=== PATIENT | female | born 1935 | race Caucasian/White ===

== ENCOUNTER 2020-04-03 09:50 | Observation (INO) ==
--- NOTE | 2020-04-03 10:38 | History & Physical Bridge Note ---
Date of Service April 03, 2020 History & Physical Bridge Note I have examined the patient, reviewed the History & Physical and in the interval since the performance of the History & Physical I have noted the following changes of clinical significance: no changes noted
--- NOTE | 2020-04-03 10:38 | Pre Anesthesia Assessment ---
Date of Service April 03, 2020 Pre Sedation Assessment Cardiovascular + bradycardic Respiratory normal respiratory effort, lungs clear to auscultation Pre-Sedation Airway Assessment Smoking Status: Former smoker Hx Sleep Apnea: No Short, Thick Neck: No Thyromental Distance: > or= 3.5 Finger Breadths Oral Cavity: + WNL Mallampati Class: II ASA: ASA2 NPO Status Date of Last Intake of Fluids: 04/03/20 Time of Last Intake of Fluids: 08:00 Date of Last Intake of Solid Food: 04/02/20 Time of Last Intake of Solid Foods: 17:00 Procedure Planning Contraindications for Sedation: none Current Medications Reviewed: Yes Notes The planned sedation has been discussed with the patient. Informed Consent was obtained. I have identified the patient, determined the appropriateness of sedation and have assessed the patient immediately prior to the procedure. All medicine(s) and interventions are by my order.
[2020-04-03] MEDS ORDERED: BUPIVACAINE 0.25% 30 ML VIAL ONE ×2 (10:43→11:05)
[2020-04-03] MEDS ORDERED: fentaNYL citrate 100 MCG/2 ML VIAL ONE ×2 (10:43→12:01)
[2020-04-03] MEDS ORDERED: MIDAZOLAM HCL 5 MG/ML 1 ML VIAL ONE (10:43)
[2020-04-03] MEDS ORDERED: CEFAZOLIN 250 MG/ML 1 GM VIAL ONE (10:43)
[2020-04-03] MEDS ORDERED: BACITRACIN INJ 50,000 UNIT VIAL ONE (10:43)
[2020-04-03] MEDS ORDERED: LIDOCAINE HCL 1% 20 ML VIAL ONE (10:43)
[2020-04-03] MEDS ORDERED: DiphenhydrAMINE HCL 50 MG/ML VIAL ONE (11:15)
[2020-04-03] MEDS ORDERED: methylPREDNISolone 125 MG/2 ML VIAL ONE (11:15)
[2020-04-03] MEDS ORDERED: HydrALAZINE HCL 20 MG/ML VIAL ONE (12:27)
[2020-04-03] MEDS ORDERED: MIDAZOLAM HCL 1 MG/ML 2ML VIAL ONE (12:30)
--- NOTE | 2020-04-03 12:52 | Post Anesthesia Assessment ---
Date of Service April 03, 2020 Post Sedation Assessment Vital Signs Temp Pulse Resp BP Pulse Ox 04/03/20 10:20 36.7 C 53 L 18 175/65 H 99 Recovery Score Activity: Moves 4 extremities Respiration: Deep Breath/Cough Circulation: +/-20% PreAnes Value Consciousness: Fully Awake Oxygen Saturation: > 92% On Room Air Discharge Sedation Level of Care: Fast Track Phase II Post Sedation Plan On clinical assessment, the patient appears to have tolerated the sedation without complications. Patient is recovering as anticipated. Patient will continue to be monitored by nursing and may be discharged when sedation discharge criteria are met per below protocol. Upon Completions of procedure up to 15 minutes continue every 5 minute vital signs and the P.A.R. score; then discharge to a Phase I or Fast Track to Phase II per the following guidelines: * Discharge Patient to appropriate Phase II area if PAR is 8 or greater or return to pre- procedure baseline. The post - procedure orders will be as directed. * If PAR score is less than 8 or not return to pre-procedure baseline then patient will follow Phase I monitoring till PAR is reached for Phase II. The Phase I may be done in procedure room or may call to secure a Phase I area. * If naloxone or flumazenil are used for reversal, hold in Phase I for continued monitoring from when last reversal dose was given for a minimum of 60 minutes or longer pending the nurse and/or physician discretion of patient condition before discharge to Phase II. Please call the Sedation Physician to re-evaluate and complete post-note for discharge to Phase II area. Do NOT discharge from procedure sedation or Phase 1 until post- sedation evaluation note is complete by procedure /sedation MD Sedation Discharge Instructions to be given to the patient at discharge to home.
[2020-04-03] MEDS ORDERED: OXYCODONE/ACETAMINOPHEN 5mg/325mg TAB PO PRN (12:53)
--- NOTE | 2020-04-03 12:53 | Operative Report ---
Post Operative Report Pre & Post Diagnosis tbs Operation Date: 04/03/20 11:00 <No data on this case meets the specified criteria> I identified the patient and participated in the time-out.: Yes Procedure Operation Date: 04/03/20 11:00 Actual Procedures p Pacer with A/V Leads (Dual) - Tracy Salcedo DO s Bundle of his Recording - Tracy Salcedo DO Surgeon Tracy Salcedo DO Set Up Mechanic none Estimated Blood Loss 25 Findings Consistent with Post-Op Diagnosis Specimens none Description of Procedure see official report I attest to the content of the Intraoperative Record and any orders documented therein. Any exceptions are noted below.
[2020-04-03] MEDS ORDERED: LORazepam 0.5 MG TAB PO PRN (12:56)
[2020-04-03] MEDS ORDERED: NURSING DECISION MEDICATION ONE (14:00)
[2020-04-03] MEDS: ACETAMINOPHEN 325 MG TAB PO PRN (16:28)
[2020-04-03] MEDS: METOPROLOL SUCC 25MG EXT REL TAB PO SCH (16:29)
--- NOTE | 2020-04-03 18:21 | XRay Report ---
XR chest 2V PA/lateral CLINICAL HISTORY: post ppm with lead over left bundle COMPARISON STUDY: 10/30/2019 FINDINGS: Cardiac pacemaker placement. Leads in good position. No evidence for pneumothorax. Mild chronic interstitial change throughout both hemithoraces. IMPRESSION: Cardiac pacer placed with leads in good position. Lungs are clear with no evidence for p neumothorax. ACT 112: Negative or not required by law. The above report was generated using voice recognition software. It may contain grammatical, syntax or spelling errors. Electronically signed by: Mayank Lopez M.D. 04/03/2020 6:20 PM
--- NOTE | 2020-04-03 19:24 | Electrocardiogram Report ---
Test Reason : Blood Pressure : / mmHG Vent. Rate : 060 BPM Atrial Rate : 060 BPM P-R Int : 212 ms QRS Dur : 080 ms QT Int : 440 ms P-R-T Axes : -28 -21 -05 degrees QTc Int : 440 ms Atrial-paced rhythm with prolonged AV conduction Nonspecific ST abnormality Abnormal ECG When compared with ECG of 01-NOV-2019 06:55, Electronic atrial pacemaker has replaced Sinus rhythm QT has shortened Confirmed by Adi Horn ([id number]) on 04/03/2020 7:23:59 PM Referred By: Tracy Salcedo Confirmed By:Jose L Horn
[2020-04-03] MEDS: SOTALOL HCL 80 MG TAB PO SCH (20:39)
[2020-04-04] MEDS: LEVOTHYROXINE SODIUM 50 MCG TABLET PO SCH (05:00)
[2020-04-04] MEDS ORDERED: SOTALOL HCL 80 MG TAB PO ONE (08:17)
[2020-04-04] MEDS: SOTALOL HCL 80 MG TAB PO SCH ×2 (08:30→20:51)
--- NOTE | 2020-04-04 08:34 | Cardiology Progress Note ---
Date of Service April 04, 2020 Assessment & Plan (1) A-fib: (2) Tachy-gaviota syndrome: Subjective Pt went into AF last night around 7pm; she is slightly symptomatic with palpitations and fatigue. She is POD 1 from a ppm Review of Systems Review of Systems: All systems reviewed & are unremarkable except as noted in HPI & below Physical Exam Physical Exam: aaox3, NAD NC/AT, EOMI Supple No JVD irreguar irregular and tachycardic S1/S2, No murmur CTA b/l no w/r/r soft nt/nd no LE edema b/l skin intact no focal deficits left pectoral incision intact, no hematoma mild ecchymosis Results & Data Vital Signs (Past 12 Hours) Vital Signs Temp Pulse Resp BP Pulse Ox 04/04/20 08:09 36.4 C L 128 H 19 149/82 H 96 04/04/20 03:46 36.3 C L 107 H 18 131/78 98 04/03/20 23:11 36.4 C L 60 19 136/74 96 Diagnostic Findings CXR: NO PTX, leads in position ECG: SR Pacemaker Interrogation: Currently in AF with RVR Lead testing stable from implant I tried to burst pace her out of the AF from the RA but this was not successfully Medications Administered Current Inpatient Medications Acetaminophen (Tylenol) 650 mg PO Q4H PRN PRN Reason: Pain Stop: 05/03/20 12:52 Last Admin: 04/03/20 16:28 Dose: 650 mg Documented by: Aspirin (Ecotrin Ectab) 81 mg PO DAILY@0800 [facility] Stop: 05/04/20 07:59 Cyanocobalamin (Vitamin B-12) 100 mcg PO DAILY@0800 [facility] Stop: 05/04/20 07:59 Folic Acid (Folvite) 1 mg PO DAILY@0800 [facility] Stop: 05/04/20 07:59 Furosemide (Lasix) 20 mg PO QAM@0800 [facility] Stop: 05/04/20 07:59 Hydralazine HCl (Apresoline) 25 mg PO TID@0800,1200,2000 [facility] Stop: 05/03/20 13:59 Last Admin: 04/03/20 21:09 Dose: 25 mg Documented by: Levothyroxine Sodium (Synthroid) 50 mcg PO QAM@0400 [facility] Stop: 05/04/20 03:59 Last Admin: 04/04/20 05:00 Dose: 50 mcg Documented by: Lorazepam (Ativan) 0.5 mg PO HS PRN PRN Reason: Sleep Stop: 05/03/20 12:55 Losartan Potassium (Cozaar) 100 mg PO DAILY@0800 [facility] Stop: 05/04/20 07:59 Magnesium Oxide (Mag-Ox) 400 mg PO QAM@0800 [facility] Stop: 05/04/20 07:59 Metoprolol Succinate (Toprol Xl) 25 mg PO QAM@0800 [facility] Stop: 05/03/20 13:59 Last Admin: 04/03/20 16:29 Dose: 25 mg Documented by: Oxycodone/Acetaminophen (Percocet 5mg/325mg) 1 - 2 tab PO Q6H PRN PRN Reason: Moderate-Severe Pain Stop: 04/17/20 12:52 Last Admin: 04/03/20 20:38 Dose: 2 tab Documented by: Pantoprazole Sodium (Protonix) 40 mg PO QAM@0800 [facility] Stop: 05/04/20 07:59 Potassium Chloride (Klor-Con M20) 20 meq PO QDL@1200 [facility] Stop: 05/04/20 11:59 Sotalol HCl (Betapace) 40 mg PO BID@0800,2000 [facility] Stop: 05/03/20 19:59 Last Admin: 04/04/20 08:30 Dose: Not Given Documented by: Vitamin D (Vitamin D3) 2,000 units PO DAILY@0800 [facility] Stop: 05/04/20 07:59 (1) A-fib Atrial fibrillation type: unspecified Qualified Code(s): I48.91 - Unspecified atrial fibrillation
[2020-04-04] MEDS: PANTOprazole 40 MG TAB PO SCH (08:45)
[2020-04-04] MEDS: LOSARTAN POTASSIUM 50 MG TAB PO SCH (08:45)
[2020-04-04] MEDS: CHOLECALCIFEROL 1,000 UNITS 25 MCG TAB PO SCH (08:45)
[2020-04-04] MEDS: FOLIC ACID 1 MG TAB PO SCH (08:45)
[2020-04-04] MEDS: FUROSEMIDE 20 MG TAB PO SCH (08:45)
[2020-04-04] MEDS: CYANOCOBALAMIN (VITAMIN B-12) 100 MCG TABLET PO SCH (08:45)
[2020-04-04] MEDS: MAGNESIUM OXIDE 400 MG TAB PO SCH (08:46)
[2020-04-04] MEDS: ASPIRIN 81 MG ECTAB PO SCH (08:46)
[2020-04-04] MEDS: METOPROLOL SUCC 25MG EXT REL TAB PO SCH (08:46)
[2020-04-04] MEDS: POTASSIUM CHLORIDE 20 MEQ TABCR PO SCH (12:13)
[2020-04-04] MEDS: ACETAMINOPHEN 325 MG TAB PO PRN (19:11)
[2020-04-05] MEDS: LEVOTHYROXINE SODIUM 50 MCG TABLET PO SCH (05:50)
--- NOTE | 2020-04-05 07:06 | Anesthesiology Consultation ---
Date of Service April 05, 2020 Assessment & Plan (1) Encounter for pre-operative examination: Chart Review Chart Review: Acceptable Risk for Surgery Consults Requested none ASA ASA3 Proposed Anesthesia Anesthesia Type: MAC Risk / Benefits Reviewed With: PT / POA / Parent / Guardian, Accepts Plan and Informed Consent Obtained History Surgery Operation Date: 04/03/20 11:00 Proposed Procedures p Dual Chamber Pacemaker Insertion w/Possible Left Bundle Branch - Tracy Salcedo DO Operation Date: 04/05/20 07:30 Proposed Procedures p Cardioversion Lighter w/Anesthesia - Geovani Carpenter MD Height/Weight Height: 5 ft 4 in Weight: 95.6 kg Allergies Allergy/AdvReac Type Severity Reaction Status Date / Time wheat Allergy Intermediate CELIAC Verified 10/30/19 11:43 DISEASE Fnrxlgx-Tcu-Fsm Reductase AdvReac Intermediate MUSCLE AND Verified 10/30/19 11:4 3 Inhibitor BACK ACHES diltiazem [From Cardizem] AdvReac Unknown Verified 10/30/19 11:44 epinephrine AdvReac Unknown "WEIRD Verified 10/30/19 11:43 FEELING" lidocaine AdvReac Unknown "FEELS Verified 10/30/19 11:43 WEIRD" Medications Home Medications Medication Instructions Recorded Confirmed Last Taken esomeprazole magnesium [Nexium] 20 mg PO QAM 01/18/19 04/03/20 10/30/19 hydralazine 25 mg PO TID 01/18/19 04/03/20 10/30/19 levothyroxine [Synthroid] 50 mcg PO QAM 01/18/19 04/03/20 10/30/19 lorazepam 0.5 mg PO HS PRN 01/18/19 04/03/20 10/29/19 0.25mg magnesium oxide 400 mg PO QAM 01/18/19 04/03/20 10/30/19 potassium chloride 20 meq PO QDL 01/18/19 04/03/20 10/29/19 aspirin 81 mg PO DAILY 10/30/19 04/03/20 Unknown cholecalciferol (vitamin D3) 2,000 unit PO DAILY 10/30/19 04/03/20 Unknown cyanocobalamin (vitamin B-12) 100 mcg PO DAILY 10/30/19 04/03/20 Unknown folic acid 1 mg PO DAILY 10/30/19 04/03/20 Unknown furosemide [Lasix] 20 mg PO QAM 10/30/19 04/03/20 10/30/19 losartan 100 mg PO DAILY 10/30/19 04/03/20 Unknown sotalol 40 mg PO BID 11/13/19 04/03/20 Unknown Active Medications Generic Name Dose Route Start Last Admin Trade Name Freq PRN Reason Stop Dose Admin Acetaminophen 650 mg 04/03/20 12:53 04/04/20 19:11 Tylenol PO 05/03/20 12:52 650 mg Q4H PRN Administration Pain Aspirin 81 mg 04/04/20 08:00 04/04/20 08:46 Ecotrin Ectab PO 05/04/20 07:59 81 mg DAILY@0800 [facility] Administration Cyanocobalamin 100 mcg 04/04/20 08:00 04/04/20 08:45 Vitamin B-12 PO 05/04/20 07:59 100 mcg DAILY@0800 [facility] Administration Folic Acid 1 mg 04/04/20 08:00 04/04/20 08:45 Folvite PO 05/04/20 07:59 1 mg DAILY@0800 [facility] Administration Furosemide 20 mg 04/04/20 08:00 04/04/20 08:45 Lasix PO 05/04/20 07:59 20 mg QAM@0800 [facility] Administration Hydralazine HCl 25 mg 04/03/20 14:00 04/04/20 20:51 Apresoline PO 05/03/20 13:59 25 mg TID@0800,1200,2000 [facility] Administration Levothyroxine Sodium 50 mcg 04/04/20 04:00 04/05/20 05:50 Synthroid PO 05/04/20 03:59 50 mcg QAM@0400 [facility] Administration Lorazepam 0.5 mg 04/03/20 12:56 04/05/20 00:32 Ativan PO 05/03/20 12:55 0.5 mg HS PRN Administration Sleep Losartan Potassium 100 mg 04/04/20 08:00 04/04/20 08:45 Cozaar PO 05/04/20 07:59 100 mg DAILY@0800 [facility] Administration Magnesium Oxide 400 mg 04/04/20 08:00 04/04/20 08:46 Mag-Ox PO 05/04/20 07:59 400 mg QAM@0800 [facility] Administration Metoprolol Succinate 25 mg 04/03/20 14:00 04/04/20 08:46 Toprol Xl PO 05/03/20 13:59 25 mg QAM@0800 [facility] Administration Oxycodone/Acetaminophen 1 - 2 tab 04/03/20 12:53 04/03/20 20:38 Percocet 5mg/325mg PO 04/17/20 12:52 2 tab Q6H PRN Administration Moderate-Severe Pain Pantoprazole Sodium 40 mg 04/04/20 08:00 04/04/20 08:45 Protonix PO 05/04/20 07:59 40 mg QAM@0800 [facility] Administration Potassium Chloride 20 meq 04/04/20 12:00 04/04/20 12:13 Klor-Con M20 PO 05/04/20 11:59 20 meq QDL@1200 [facility] Administration Sotalol HCl 40 mg 04/03/20 20:00 04/04/20 20:51 Betapace PO 05/03/20 19:59 40 mg BID@0800,2000 [facility] Administration Vitamin D 2,000 units 04/04/20 08:00 04/04/20 08:45 Vitamin D3 PO 05/04/20 07:59 2,000 units DAILY@0800 [facility] Administration NPO Date Last Intake of Fluids: 04/03/20 Time Last Intake of Fluids: 08:00 Date Last Intake of Solids: 04/02/20 Time Last Intake of Solids: 17:00 Past Medical History Medical History Anxiety (Acute) Atrial fibrillation Celiac disease Chronic back pain SPINAL STENOSIS Congestive heart failure HX 1 1/2 YR AGO GERD (gastroesophageal reflux disease) (Acute) Hiatal hernia History of cardioversion X 4-5 Hyperlipidemia Hypertension (Acute) Hypothyroidism Iron deficiency anemia Migraine HX Nausea and vomiting after administration of anesthetic agent Osteoarthritis 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 Sleep apnea BORDERLINE-DOES NOT USE MACHINE Urinary bladder incontinence Exercise / Class Metabolic Activity III < 4 Walking/Shop/Light housework Past Family History Family History Mother Family history of diabetes mellitus Hypertension Macular degeneration Father Heart disease Past Surgical History Surgical History History of adenoidectomy History of appendectomy History of bilateral tubal ligation History of cardiac cath 3 YRS AGO NO STENTS-"CLEAN VESSELS" History of cataract extraction History of tonsillectomy Surgery, elective COCCYXGECTOMY Past Anesthesia History No Hx of Anesthesia Complications and No Family Hx of Anesthesia Complications History of PONV No Hx of PONV and No Hx of Motion Sickness Social History Smoking Status: Former smoker Hx Alcohol Use: No Alcohol type: wine alcohol intake frequency: holidays/special occasions only Hx Substance Use: No substance use type: does not use Physical Exam Vital Signs Last Vital Signs Temp 97.9 F 04/05/20 04:00 Pulse 111 H 04/05/20 04:00 Resp 18 04/05/20 04:00 BP 113/76 04/05/20 04:00 Pulse Ox 96 04/05/20 04:00 ENMT Mouth: no dentition abnormality Thyromental Distance: > or= 3.5 Finger Breadths Mallampati Class: II Neck normal visual inspection Respiratory normal respiratory effort Auscultation: lungs clear to auscultation bilaterally Cardiovascular Rate/Rhythm: + abnormal rate and + abnormal rhythm Testing Electrocardiogram Date: 04/03/20 Atrial-paced rhythm with prolonged AV conduction, rate [address] abnormality Abnormal ECG When compared with ECG of 01-NOV-2019 06:55, Electronic atrial pacemaker has replaced Sinus rhythm QT has shortened Confirmed by Adi Horn ([id number]) on 04/03/2020 7:23:59 PM Chest X-Ray Date: 04/03/20 IMPRESSION: Cardiac pacer placed with leads in good position. Lungs are clear with no evidence for pneumothorax. Echocardiogram Date: 11/09/19 Afib with mildly elevated ventricular rate EF 55-60% LA is mildly dilated Mild MR
[2020-04-05] MEDS ORDERED: PROPOFOL IV EMULSION 10 MG/ML 20 ML VIAL IV ONE (08:01)
[2020-04-05] MEDS: FUROSEMIDE 20 MG TAB PO SCH (08:02)
[2020-04-05] MEDS: SOTALOL HCL 80 MG TAB PO SCH (08:02)
[2020-04-05] MEDS: LOSARTAN POTASSIUM 50 MG TAB PO SCH (08:03)
[2020-04-05] MEDS: CYANOCOBALAMIN (VITAMIN B-12) 100 MCG TABLET PO SCH (08:03)
[2020-04-05] MEDS: MAGNESIUM OXIDE 400 MG TAB PO SCH (08:03)
[2020-04-05] MEDS: PANTOprazole 40 MG TAB PO SCH (08:03)
[2020-04-05] MEDS: ASPIRIN 81 MG ECTAB PO SCH (08:03)
[2020-04-05] MEDS: FOLIC ACID 1 MG TAB PO SCH (08:03)
[2020-04-05] MEDS: METOPROLOL SUCC 25MG EXT REL TAB PO SCH (08:04)
[2020-04-05] MEDS: CHOLECALCIFEROL 1,000 UNITS 25 MCG TAB PO SCH (08:04)
--- NOTE | 2020-04-05 08:06 | Cardioversion ---
Date of Service April 05, 2020 Electrical Cardioversion Rpt Electrical Cardioversion Report Patient was seen and examined chart medications and telemetry reviewed. No issues overnight Procedure synchronized electrical cardioversion discussed in detail and informed consent obtained. Risk discussed in detail including risk of thromboembolic disease with patient with watchman device in lieu of anticoagulation. Anesthesia consultation was placed and patient sedated with continuous heart rate oxygen saturation and end-tidal CO2 monitoring Synchronized electrical cardioversion was performed with single 150 J biphasic shock with successful conversion to sinus rhythm Patient aroused having tolerated well post procedure Pacemaker re-interrogated post procedure with normal function noted Plan continue medical therapies, discharge after post procedure observation
--- NOTE | 2020-04-05 08:08 | Cardiology Progress Note ---
Date of Service April 05, 2020 Assessment & Plan (1) A-fib: (2) Tachy-gaviota syndrome: Patient status post pacemaker insertion with transient lapse and atrial fibrillation. Underwent successful synchronized electrical cardioversion this morning without incident. Plan continue current medical therapies with discharge later today Subjective Patient seen and examined, chart, medications, telemetry reviewed. Examined pre-and post synchronized electrical cardioversion overall feeling well. Physical Exam Constitutional: WD/WN, vitals as above Eyes: PERRL, conjunctivae normal, anicteric sclerae ENMT: external ear and nose normal, oropharynx normal Neck: trachea midline, no thyromegaly Respiratory: normal respiratory effort, lungs clear to auscultation Cardiovascular: Rate/Rhythm: regular rate and regular rhythm Heart Sounds: normal S1 and normal S2; no gallop and no murmur Palpation: normal PMI Vessels: normal carotid upstroke and radial pulses present; no JVD and no carotid bruit Extremities: no edema Chest (Breasts): Chest: + pacemaker (Incision healing well without hematoma or tenderness of significant) Gastrointestinal (Abdomen): normal bowel sounds, soft, nontender, no hepatosplenomegaly Musculoskeletal: no cyanosis or clubbing, extremities motor strength 5/5 Skin: no rashes, warm and dry Neurologic: PERRL, EOMI, accommodation nl, no face palsy, no dysarthria Psychiatric: A+Ox3, euthymic affect Results & Data Vital Signs (Past 12 Hours) Vital Signs Temp Pulse Resp BP Pulse Ox 04/05/20 08:00 36.2 C L 97 H 16 127/86 97 04/05/20 07:49 80 16 122/54 L 97 04/05/20 07:41 82 16 117/58 L 97 04/05/20 04:00 36.6 C 111 H 18 113/76 96 04/04/20 23:02 36.4 C L 101 H 18 133/86 96 ECG Additional Comments: EKG post synchronized cardioversion: AV sequential pacing with His bundle lead narrow QRS complex rate 80 bpm (1) A-fib Atrial fibrillation type: unspecified Qualified Code(s): I48.91 - Unspecified atrial fibrillation
--- NOTE | 2020-04-05 08:15 | Anesthesiology Progress Note ---
Date of Service April 05, 2020 Anesthesia Post Procedure Vital Signs Vital Signs: Temp Pulse Resp BP Pulse Ox 04/05/20 08:00 97.2 F L 97 H 16 127/86 97 04/05/20 07:49 80 16 122/54 L 97 04/05/20 07:41 82 16 117/58 L 97 04/05/20 04:00 97.9 F 111 H 18 113/76 96 04/04/20 23:02 97.5 F L 101 H 18 133/86 96 04/04/20 18:54 97.7 F 111 H 18 149/84 H 98 04/04/20 15:34 97.5 F L 114 H 18 124/84 96 04/04/20 11:41 97.9 F 109 H 19 137/88 97 Pain Intensity Left Chest: Pain Intensity: 5 Transfer of Care Handoff Completed per policy Notes Mental Status: alert / awake / arousable and participated in evaluation Patient Amnestic to Procedure: Yes Nausea / Vomiting: adequately controlled Pain: adequately controlled Airway Patency, RR, SpO2: stable & adequate BP & HR: stable & adequate Hydration State: stable & adequate Anesthetic Complications: no major complications apparent and Pt Satisfied with anesthetic care
--- NOTE | 2020-04-05 11:28 | Electrocardiogram Report ---
Test Reason : Blood Pressure : / mmHG Vent. Rate : 080 BPM Atrial Rate : 080 BPM P-R Int : 106 ms QRS Dur : 132 ms QT Int : 460 ms P-R-T Axes : 000 -37 072 degrees QTc Int : 530 ms AV dual-paced rhythm Abnormal ECG When compared with ECG of 03-APR-2020 14:29, Electronic ventricular pacemaker has replaced Electronic atrial pacemaker Confirmed by Adi Horn ([id number]) on 04/05/2020 11:28:22 AM Referred By: Tracy Salcedo Confirmed By:Jose L Horn
[2020-04-05] MEDS: POTASSIUM CHLORIDE 20 MEQ TABCR PO SCH (11:49)
--- NOTE | 2020-04-10 16:01 | Discharge Summary ---
Date of Service April 05, 2020 Admission HPI Per Admitting Provider Pt admitted for elective ppm Admission Exam Per Admitting Provider aaox3, NAD NC/AT, EOMI Supple No JVD Nrl S1/S2, No murmur CTA b/l no w/r/r soft nt/nd no LE edema b/l skin intact no focal deficits Principal Diagnosis TBS s/p ppm Discharge Exam aaox3, NAD NC/AT, EOMI Supple No JVD Nrl S1/S2, No murmur CTA b/l no w/r/r soft nt/nd no LE edema b/l skin intact no focal deficits left pectoral incision intact, no hematoma mild ecchymosis Discharge Data Allergies Allergy/AdvReac Type Severity Reaction Status Date / Time wheat Allergy Intermediate CELIAC Verified 10/30/19 11:43 DISEASE Tllsuvb-Afh-Dzn Reductase AdvReac Intermediate MUSCLE AND Verified 10/30/19 11:43 Inhibitor BACK ACHES diltiazem [From Cardizem] AdvReac Unknown Verified 10/30/19 11:44 epinephrine AdvReac Unknown "WEIRD Verified 10/30/19 11:43 FEELING" lidocaine AdvReac Unknown "FEELS Verified 10/30/19 11:43 WEIRD" Consultations 04/04/20 16:39 Consult Anesthesiology Routine Procedures Performed Operation Date: 04/03/20 11:00 Actual Procedures p Pacer with A/V Leads (Dual) - Tracy Salcedo DO s Bundle of his Recording - Tracy Salcedo DO Operation Date: 04/05/20 07:30 Actual Procedures p Cardioversion - Geovani Carpenter MD Ordered Studies CXR: No PTX leads in position ECG: AP-VS Pacemaker interrogation: Normal function stable lead testing 04/03/20 07:00 EP Lab Images for PACS ONCE Hospital Course (1) A-fib: (2) Tachy-gaviota syndrome: pt admitted for elective ppm due to TBS; underwent procedure without any complications and monitored overnight. She went into AF with RVR so remained in the hospital an extra night to have an elective cardioversion back to SR. Total Time Total Time Spent Total Time Spent (In Minutes): 40 Total Time Includes: Examination of the Patient, Discharge Planning, Medication Reconciliation and Other Discharge Plan Discharge Items Patient Disposition: Home - Self-Care Reason For Visit: Tachybrady Syndrome Discharge Diagnosis: Tachybradycardia syndrome status post pacemaker insertion Successful synchronized cardioversion for recurrent atrial fibrillation Activity: Per Instructions section Non-emergency contact: [place] [facility] Call non-emergency contact if: you have any medication questions, your symptoms worsen and you have a fever Follow-up/Referrals: Arpit London MD [Primary Care Provider] - Diet: Heart Healthy Addtl Attending Provider Instructions: Wear sports shirt or sports bra for 2 weeks Keep surgical wound site clean and dry may shower in 3 days avoiding surgical site Keep appointment for wound check 7-10 days Pending Studies at Discharge: No Stand-Alone Forms: [facility], Smoking Cessation Medications and DC Order Prescriptions: Continued furosemide [Lasix] 20 mg Tablet 20 mg PO QAM RF: 0 losartan 50 mg Tablet 100 mg PO DAILY RF: 0 aspirin 81 mg Tablet,Delayed Release (Dr/Ec) 81 mg PO DAILY RF: 0 cyanocobalamin (vitamin B-12) 100 mcg Tablet 100 mcg PO DAILY RF: 0 folic acid 1 mg Tablet 1 mg PO DAILY RF: 0 cholecalciferol (vitamin D3) 2,000 unit Tablet 2,000 unit PO DAILY RF: 0 hydralazine 25 mg Tablet 25 mg PO TID RF: 0 magnesium oxide 400 mg magnesium Capsule 400 mg PO QAM RF: 0 potassium chloride 20 mEq Tablet Extended Release 20 meq PO QDL RF: 0 lorazepam 0.5 mg Tablet 0.5 mg PO HS PRN (Reason: Sleep) RF: 0 esomeprazole magnesium [Nexium] 20 mg Capsule,Delayed Release(Dr/Ec) 20 mg PO QAM RF: 0 levothyroxine [Synthroid] 50 mcg Tablet 50 mcg PO QAM RF: 0 sotalol 80 mg tablet 40 mg PO BID RF: 0 Discharge Orders: Discharge Order (Routine); Ordered 04/05/20 Ordered By: Geovani Aguilar/Other Patient Handouts: Pacemakers, Living with a Pacemaker, Discharge Instructions for Pacemaker Implantation Admission Data Admit Date/Time: 04/03/20 12:36 Attending Provider: Tracy Salcedo Admit Provider: Tracy Salcedo Primary Care Provider: Arpit London Other Providers: [place] Other Interventions: Discharge Summary Assessment (RN) Last Done: 04/05/20 16:14 DC Date/Time DO NOT enter until pt leaves facility: 04/05/20 17:09
--- NOTE | 2020-04-18 07:17 | Operative Report (OR) ---
DATE OF OPERATION: 04/03/2020 PREOPERATIVE DIAGNOSIS: Tachybrady syndrome. POSTOPERATIVE DIAGNOSIS: Tachybrady syndrome. PROCEDURE: Dual chamber rate responsive permanent pacemaker under fluoroscopic guidance along with intracardiac EGM mapping of the His bundle region. SURGEON: Tracy Salcedo DO. ASSISTANTS: None. ANESTHESIA: Monitored conscious sedation administered under my supervision by Lyla Connors. Start time 11:05, end time 12:52. A total of 6 mg of Versed, 175 mcg of fentanyl. INTRAVENOUS FLUIDS: 50 mL. ANTIBIOTICS: Two grams of Ancef. CONTRAST: 4 mL of Optiview. BLOOD LOSS: 20 mL. URINE OUTPUT: Not applicable. SPECIMENS: None. FINDINGS: See below. DRAINS: None. INDICATIONS: This is an 84-year-old female who has a past medical history for paroxysmal atrial fibrillation, she did not tolerate amiodarone secondary to GI problems, so she is on sotalol. She did not tolerate high doses of sotalol 80 b.i.d. secondary to an acute heart failure exacerbation. She has a history of a Watchman device implant in 06/2019 CHADS2-VASc score is 4, hypertension, hypothyroidism, chronic kidney disease stage III, hyperlipidemia, spinal stenosis with the lumbar spine, iron deficiency anemia, celiac disease, anxiety. She has evidence of tachybrady syndrome, so she was recommended a pacemaker. CONSENT: Consent was obtained prior to the patient going into electrophysiology lab. The patient was informed of risks, benefits and alternative to procedure. Risks include but not limited to sudden cardiac , cardiac arrhythmias, myocardial infarction, injury to the blood vessels, chamber of the heart, lung, bleeding, and infection. The patient understood these risks and agreed with procedure as planned. Informed consent was obtained. DESCRIPTION OF THE PROCEDURE: The patient was brought into electrophysiology lab in a fasting state. She was connected to continuous cardiac monitoring. A timeout was performed to ensure patient identity and procedure correctly. The patient was prepped and draped over the left infraclavicular space in normal surgical standard fashion. Monitored conscious sedation was given throughout the procedure for patient's comfort level. Ava precautions were maintained throughout the procedure. She received prophylactic antibiotics prior to incision. 10 mL of 1% lidocaine, bupivacaine mixture was given in the left deltopectoral groove. Incision was made in left deltopectoral groove. Blunt dissection performed down to identify the cephalic vein. Cephalic vein was identified and isolated using 0 silk ties. The vein was nicked with 11 blade and a guidewire was inserted without any resistance. An 8-Malian sheath was inserted over the retained guidewire without any resistance. Dilator was removed and a second guidewire was inserted through the 8-Malian sheath to allow for retained venous access. Sheath was removed, flushed and dilator reinserted over it and then was reinserted over one of the guidewires. Guidewire and dilator were removed. Then, the preformed His Medtronic catheter was advanced into the right ventricle under fluoroscopic guidance over a Glidewire. The Glidewire and dilator were removed. Then, the lead was advanced through the sheath, and intracardiac mapping of the His bundle was performed, AH was 52 milliseconds, HV was 59 milliseconds. I then moved to BARNES 30 MMR where the His was on x-ray and came about 2 cm down from that in a line that then would extend to the apex of the heart and marked this on fluoroscopy to know that is where I wanted my sheath. I then advanced in position the sheath in the foreshortened area around the second dot 2 cm below the His. Then I went into the MARTI 30 view and tried to counter clock my catheter more to get on the septum. I then looked to monitor the electrograms and watched as they changed V1 as well as monitor stim to peak QRS as I took time to screw the lead fully into the septum. I did have adequate left bundle activation, though I think the lead was little bit on an angle. Then I gave contrast through the sheath to see that the sheath was up against the septum and how much of the lead was in the septum. The sheath was then slit under fluoroscopic guidance. Then I capped the 8-Malian in and I put a second 8-Malian sheath through the retained venous access to position the right atrial lead. The right atrial lead was advanced into right atrium and positioned interatrial appendage under fluoroscopic guidance. There was adequate pacing and sensing thresholds and no diaphragmatic stimulation with high output pacing. The 8-Malian sheath of the right atrial lead was slit and the lead was fixated to pectoralis muscle using 0 silk suture. I then slit the 8-Malian sheath over the left bundle lead. The lead was then fixated to pectoralis muscle using 0 silk suture. Then, a pacemaker pocket was created using blunt dissection over the pectoralis muscle within the pectoral fascia. The pocket was flushed with copious amounts of bacitracin, saline wash and inspected for hemostasis. The leads were then attached to the pulse generator making sure that the pins were in appropriate position, passed set screw and set screws were all tightened. Pulse generator was then placed in the Tyrx pouch followed then by being placed in the pocket, making sure that the leads were lying flat beneath the device. A stay stitch using 0 silk suture was used to secure the rest of pectoralis muscle. The incision was then closed in 3-layer fashion with 2-0 Vicryl interrupted suture followed by 3-0 Vicryl interrupted suture followed by 4-0 Monocryl running stitch. Dermabond was applied followed by a Telfa and micropore dressing. EQUIPMENT: 1. Pulse generator is a [employer] Gillian XTD MRI SureScan [id number], serial number [id number]. 2. Right atrial lead Medtronic 5076-52 cm, serial number [id number]. 3. Right ventricular/left bundle lead is a Medtronic 3830-69 cm, serial number [id number]. INTRAOPERATIVE TESTIN. Right atrial lead: P waves 2.5 millivolts, impedance 557 ohms, threshold 0.9 volts at 0.4 milliseconds. 2. Right ventricular lead: R waves 14.9 millivolts, impedance 654 ohms, threshold 0.3 volts at 0.5 milliseconds. FINAL MEASUREMENTS THROUGH THE DEVICE: 1. Right atrial lead: P waves 4.4 millivolts, impedance 456 ohms, threshold 1 volt at 0.4 milliseconds. 2. Right ventricular lead: R waves 17.3 millivolts, impedance 703 ohms, threshold 0.5 volts at 0.4 milliseconds. FINAL PARAMETERS: MVP 60/120. Right atrial amplitude 3.5 volts, pulse width 0.4 milliseconds, sensitivity 0.3 millivolts. Right ventricular amplitude 3.5 volts, pulse width 0.4 milliseconds, sensitivity 0.9 millivolts. IMPRESSION: Successful dual chamber rate responsive permanent pacemaker implantation along with intracardiac EGM mapping of the His bundle region (the RV lead is within the left bundle of the septum), under fluoroscopic guidance secondary to tachybrady syndrome. PLAN: Monitor patient overnight, 12-lead ECG, chest x-ray. She is not allowed to lift left elbow or left shoulder for 1 month. She cannot lift more than 10 pounds with the left arm for 2 weeks. She is to leave the dressing on and dry until her wound check next week. I attest to the content of the Intraoperative Record and any orders documented therein. Any exceptions are noted below. DANIEL
== END 2020-04-05 17:09 | disposition home or self-care (01) ==
LOC: 2S 09:50 → EP 09:50

== ENCOUNTER 2021-07-10 10:54 | Observation (INO) ==
[2021-07-10] MEDS ORDERED: ONDANSETRON INJ 2 MG/ML 2 ML VIAL IV STA (11:17)
[2021-07-10] MEDS ORDERED: SODIUM CHLORIDE 0.9% 1000ML 500 ML IV ONE (11:32)
[2021-07-10] MEDS ORDERED: GI COCKTAIL ED USE PO ONE (11:32)
--- NOTE | 2021-07-10 11:40 | Emergency Department Note ---
Impression & Plan Nausea, Hernia, hiatal, Chronic hyponatremia ED Provider Note Provider: Rod Nunez MD DATE OF SERVICE: 07/10/2021 CHIEF COMPLAINT: intractable nausea, decreased intake, daughter reports mild confusion HISTORY OF PRESENT ILLNESS: Patient is a 85-year-old female with a past medical history of tachybradycardia syndrome and A. fib status post pacemaker and watchman device, CHF, hypertension, hypothyroidism, hyperlipidemia, and known hiatal hernia presenting with daughter today reporting that the patient's has worsening symptoms of nausea. No vomiting reported. Patient was seen here proximately 6 days ago for similar complaints. Patient evidently has a known hiatal hernia and things were not very severe last year thus she deferred surgical repair last April. Since then has had issues with significant nausea is been losing weight. Has been using some Zofran at home including this morning but this did not help and she is having near constant significant nausea worse with any food intake. Reports a little bit of constipation and has had to use MiraLAX. Reports a little bit of epigastric to right upper quadrant discomfort mild. Reports slight headache. No falls or near syncope reported. Denies significant shortness of breath. Denies any leg swelling. No fevers re ported. They do have referral from PCP for hiatal hernia repair consultation but not for several months. The patient states she does not think she can go on like this. Daughter reports the patient seemed a little bit more foggy or confused at her memory is not been as well the last day or 2 as well. Patient does report some increased urinary frequency today. Denies painful urination. Patient herself denies feeling confused or having abnormal mentation at this time. Patient reportedly had an EGD almost 2 years ago at this point by their report. They report that the Zofran tablets at home again have not been working well and that sometimes a GI cocktail helps a bit. REVIEW OF SYSTEMS: A total of 10 review of systems was obtained and negative except as stated above in the HPI. 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 NECK: Trachea midline. LUNGS: Airway patent. No retractions. Breath sounds clear HEART: Regular rate and rhythm. No chest wall tenderness ABDOMEN: Soft minimal deep tenderness in the epigastrium right upper quadrant but no Pickard sign. No guarding or peritonitis. SKIN: Acyanotic, warm, dry, without rashes EXTREMITIES: Without swelling, tenderness or deformity NEUROLOGICAL: No focal deficits moving all extremities to command. No aphasia. No facial droop or slurred speech. EK bpm atrially paced rhythm with occasional PAC. No acute ST segment elevation noted with a QTC of 424. CONTINUOUS CARDIAC MONITORING: was ordered and showed a heart rate of 60s and 70s bpm in predominantly atrial paced rhythm, occasional PAC Patient's laboratory studies and imaging reviewed. Differential includes gastrointestinal, infection, dehydration, metabolic abnormality, hypo/hyperglycemia, electrolyte disturbance, anemia, hypoxia, cardiac sources, intracerebral event, toxicologic, neurologic, as well as other pathologies. IMPRESSION/MEDICAL DECISION MAKING: Patient presents with report of intractable nausea and ability to tolerate oral intake while taking some Zofran at home. No hiatal hernia. He is very interested in possible hiatal hernia surgery at this time. A little bit of abdominal pain. Slight headache and report of little bit of fogginess of the patient does not seem altered at this time of any significance or having focal deficits. Lower suspicion for stroke. CT the head will complete with CT abdomen pelvis to eval for occult intra-abdominal/intracranial pathology. Not significantly tender and I doubt this represents cholecystitis. Lower suspicion for cardiac or pulmonary etiology but chest x-ray and EKG/troponin were obtained. Urinalysis sent to exclude UTI. Covid testing sent. \\Urinalysis without evidence of infection. CBC does not show remarkable anemia or leukocytosis. Mild hyponatremia 133 similar to previous. No significant renal dysfunction noted. No evidence of hepatitis or pancreatitis. Troponin not elevated. Negative Covid test. CT of the head without acute findings per radiology and I doubt this represents meningitis or CVA. Chest x-ray is clear. CT of the abdomen pelvis shows hernia but no evidence of obstruction or other acute pathology. Again testing here is reassuring and discussed with the patient and daughter at bedside these results. She is had minimal improvement of her nausea symptoms while here. Evidently patient was able to get surgery follow-up on Wednesday in [place] to meet a surgeon to discuss hiatal hernia repair. Discussed with patient and daughter options at this time. After discussion patient and her daughter feel that further care at the hospital given her significant symptoms and nausea is the preferred option. Patient may benefit from GI consult to exclude other esophagitis is or issues causing her symptoms. Will consult the hospitalist for further possible observation. DIAGNOSIS: Nausea, hiatal hernia, chronic hyponatremia DISPOSITION: Hospitalist will evaluate Patient was agreeable with this plan. 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 Sleep apnea BORDERLINE-DOES NOT USE MACHINE Urinary bladder incontinence Surgical History History of adenoidectomy History of appendectomy History of bilateral tubal ligation History of cardiac cath 3 YRS AGO NO STENTS-"CLEAN VESSELS" History of cataract extraction History of tonsillectomy Surgery, elective COCCYXGECTOMY Family History Mother Family history of diabetes mellitus Hypertension Macular degeneration Father Heart disease Social History Smoking Status: Former smoker Tobacco Type: Cigarettes packs per day: 1; Years Smoked: 35; Second Hand Exposure: No; Do You Dip or Chew Tobacco: No; Tobacco Cessation Education Requested by Patient: No Hx Alcohol Use: No Hx Substance Use: No Preferred Language: Hungarian Communication Ability: Effective 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 Beliefs That Will Affect Care: None marital status: / Current Living Situation: Alone Other Information That Helps Us Care for You: No Feels Safe at Home: Yes Safety Concerns: Feels Safe At This Time Assistive Devices: Cane Allergies Allergies Allergy/AdvReac Type Severity Reaction Status Date / Time wheat Allergy Intermediate CELIAC Verified 07/10/21 13:51 DISEASE Iodinated Contrast Media AdvReac Intermediate "Tingly Unverified 07/10/21 13:51 all over" [id number] Reductase AdvReac Intermediate MUSCLE AND Verified 07/10/21 13:51 Inhibitor BACK ACHES [Ewtvlot-Zmm-Xsv Reductase Inhibitor] diltiazem [From Cardizem] AdvReac Unknown Verified 07/10/21 13:51 epinephrine AdvReac Unknown "WEIRD Verified 07/10/21 13:51 FEELING" lidocaine AdvReac Unknown "FEELS Verified 07/10/21 13:51 WEIRD" Home Meds Home Medications Medication Instructions Recorded Confirmed esomeprazole magnesium 20 mg 20 mg PO QAM 01/18/19 07/10/21 capsule,delayed release (Nexium) hydralazine 25 mg tablet 25 mg PO QID 01/18/19 07/10/21 levothyroxine 50 mcg tablet 50 mcg PO QAM 01/18/19 07/10/21 (Synthroid) lorazepam 0.5 mg tablet 0.5 mg PO HS PRN 01/18/19 07/10/21 magnesium oxide 400 mg PO QAM 01/18/19 07/10/21 potassium chloride 20 mEq 20 meq PO QAM 01/18/19 07/10/21 tablet,extended release (K-Tab) aspirin 81 mg tablet,delayed 81 mg PO HS 10/30/19 07/10/21 release (Aspirin Low Dose) cholecalciferol (vitamin D3) 50 2,000 unit PO HS 10/30/19 07/10/21 mcg (2,000 unit) tablet (Vitamin D3) folic acid 1 mg tablet 1 mg PO QAM 10/30/19 07/10/21 furosemide 20 mg tablet (Lasix) 10 mg PO Q2D 10/30/19 07/10/21 losartan 50 mg tablet (Cozaar) 100 mg PO QAM 10/30/19 07/10/21 sotalol 80 mg tablet (Sotalol AF) 40 mg PO BID 11/13/19 07/10/21 melatonin 10 mg tablet 10 mg PO HS PRN 07/04/20 07/10/21 multivitamin 1 tab PO QAM 07/04/20 07/10/21 famotidine 20 mg tablet (Pepcid AC) 20 mg PO HS 07/10/21 07/10/21 ondansetron HCl 4 mg tablet 4 mg PO Q8H PRN 07/10/21 07/10/21 (Zofran) Results & Data (ED) Vital Signs Vital Signs - 24 hr 07/10/21 11:05 07/10/21 12:18 07/10/21 12:49 Temperature 36.6 C Temperature Source Temporal Artery Scan Pulse Rate 77 Pulse Rate [Apical] 62 66 Pulse Rhythm Regular Pulse Strength Normal Respiratory Rate 20 18 18 Respiratory Effort / Characteristics Non-Labored Spontaneous Non-Labored Spontaneous Non-Labored Spontaneous Respiratory Depth Normal Normal Normal Respiratory Pattern Regular Regular Blood Pressure 182/92 H Blood Pressure [Right Arm] 187/89 H 176/80 H Blood Pressure Mean 122 Blood Pressure Mean [Right Arm] 121 112 Blood Pressure Position Sitting Blood Pressure Position [Right Arm] Sitting Pulse Oximetry 97 97 96 Oxygen Delivery Method Room Air Room Air Room Air Sepsis Recent Fever Within 48 Hours No Sepsis New/Unexplained Change in Mental Status No Sepsis Action Taken by Nursing No Action Required 07/10/21 13:40 Temperature Temperature Source Pulse Rate Pulse Rate [Apical] 60 Pulse Rhythm Pulse Strength Respiratory Rate 16 Respiratory Effort / Characteristics Non-Labored Spontaneous Respiratory Depth Normal Respiratory Pattern Regular Blood Pressure Blood Pressure [Right Arm] 175/66 H Blood Pressure Mean Blood Pressure Mean [Right Arm] 102 Blood Pressure Position Blood Pressure Position [Right Arm] Semi-fowlers Pulse Oximetry 97 Oxygen Delivery Method Room Air Sepsis Recent Fever Within 48 Hours Sepsis New/Unexplained Change in Mental Status Sepsis Action Taken by Nursing Laboratory Data Result diagrams: 07/10/21 12:05 07/10/21 12:05 Lab Results 07/10/21 07/10/21 07/10/21 Range/Units 11:21 11:40 11:40 WBC (4.8-10.8) K/uL RBC (4.2-5.4) M/uL Hgb (12.0-16.0) g/dL Hct (37-47) % MCV (80-100) fL MCH (25-34) pg MCHC (32-36) g/dL RDW Std Deviation (36.4-46.3) fL RDW Coeff of Lupis (11.5-14.5) % Plt Count (130-400) K/uL MPV (7.4-10.4) fL Immature Gran % (Auto) % Neut % (Auto) % Lymph % (Auto) % [place] % (Auto) % Eos % (Auto) % Baso % (Auto) % Neut # (Auto) (1.4-6.5) K/uL Lymph # (Auto) (1.2-3.4) K/uL [place] # (Auto) (0.11-0.59) K/uL Eos # (Auto) (0-0.5) K/uL Baso # (Auto) (0-0.2) K/uL Immature Gran # (Auto) (0.00-0.02) K/uL Sodium (136-145) mmol/L Potassium (3.5-5.1) mmol/L Chloride (98-107) mmol/L Carbon Dioxide (21-32) mmol/L Anion Gap (3-11) BUN (7-18) mg/dl Creatinine (0.6-1.2) mg/dl Est Cr Clr Drug Dosing ml/min Est GFR ( Amer) ml/min Est GFR (Non-Af Amer) ml/min BUN/Creatinine Ratio (10-20) Glucose (70-99) mg/dl Calcium (8.5-10.1) mg/dl Total Bilirubin (0.2-1) mg/dl AST (15-37) U/L ALT (12-78) U/L Alkaline Phosphatase (45-117) U/L Troponin I (0-0.045) ng/ml Total Protein (6.4-8.2) gm/dl Albumin (3.4-5.0) gm/dl Globulin (2.5-4.0) gm/dl Albumin/Globulin Ratio (0.9-2) Lipase (73-393) U/L Urine Color Yellow Urine Appearance Clear (Clear) Urine pH 7.0 (4.5-7.5) Ur Specific [place] 1.005 (1.000-1.030) Urine Protein Negative (Negative) Urine Glucose (UA) Negative (Negative) Urine Ketones Negative (Negative) Urine Blood Negative (Negative) Urine Nitrite Negative (Negative) Urine Bilirubin Negative (Negative) Urine Urobilinogen Negative (Negative) Ur Leukocyte Esterase Negative (Negative) COVID-19 Eval Order Covid19 at [facility] SARS-CoV-2 (PCR) NEGATIVE (Negative) 07/10/21 07/10/21 Range/Units 12:05 12:05 WBC 6.93 (4.8-10.8) K/uL RBC 4.31 (4.2-5.4) M/uL Hgb 12.1 (12.0-16.0) g/dL Hct 36.6 L (37-47) % MCV 84.9 (80-100) fL MCH 28.1 (25-34) pg MCHC 33.1 (32-36) g/dL RDW Std Deviation 42.9 (36.4-46.3) fL RDW Coeff of Lupis 13.8 (11.5-14.5) % Plt Count 338 (130-400) K/uL MPV 8.9 (7.4-10.4) fL Immature Gran % (Auto) 0.1 % Neut % (Auto) 70.3 % Lymph % (Auto) 15.4 % [place] % (Auto) 9.7 % Eos % (Auto) 4.2 % Baso % (Auto) 0.3 % Neut # (Auto) 4.87 (1.4-6.5) K/uL Lymph # (Auto) 1.07 L (1.2-3.4) K/uL [place] # (Auto) 0.67 H (0.11-0.59) K/uL Eos # (Auto) 0.29 (0-0.5) K/uL Baso # (Auto) 0.02 (0-0.2) K/uL Immature Gran # (Auto) 0.01 (0.00-0.02) K/uL Sodium 133 L (136-145) mmol/L Potassium 3.9 (3.5-5.1) mmol/L Chloride 99 (98-107) mmol/L Carbon Dioxide 26 (21-32) mmol/L Anion Gap 8.0 (3-11) BUN 11 (7-18) mg/dl Creatinine 1.18 (0.6-1.2) mg/dl Est Cr Clr Drug Dosing 39.2 ml/min Est GFR ( Amer) 49.0 ml/min Est GFR (Non-Af Amer) 42.3 ml/min BUN/Creatinine Ratio 9.0 L (10-20) Glucose 103 H (70-99) mg/dl Calcium 9.1 (8.5-10.1) mg/dl Total Bilirubin 0.5 (0.2-1) mg/dl AST 14 L (15-37) U/L ALT 14 (12-78) U/L Alkaline Phosphatase 108 (45-117) U/L Troponin I < 0.015 (0-0.045) ng/ml Total Protein 7.1 (6.4-8.2) gm/dl Albumin 3.3 L (3.4-5.0) gm/dl Globulin 3.8 (2.5-4.0) gm/dl Albumin/Globulin Ratio 0.9 (0.9-2) Lipase 142 (73-393) U/L Urine Color Urine Appearance (Clear) Urine pH (4.5-7.5) Ur Specific [place] (1.000-1.030) Urine Protein (Negative) Urine Glucose (UA) (Negative) Urine Ketones (Negative) Urine Blood (Negative) Urine Nitrite (Negative) Urine Bilirubin (Negative) Urine Urobilinogen (Negative) Ur Leukocyte Esterase (Negative) COVID-19 Eval Order SARS-CoV-2 (PCR) (Negative) Administered Medications Hydralazine HCl (Hydralazine Hcl 25 Mg Tab) 25 mg PO QID HILDA Stop: 08/09/21 16:59 Last Admin: 07/10/21 17:19 Dose: 25 mg Documented by: [id number] Sodium Chloride (Nss 1000ml) 1,000 mls @ 80 mls/hr IV .[id number] [facility] Stop: 07/11/21 04:59 Last Admin: 07/10/21 17:18 Dose: 80 mls/hr Documented by: [id number] Discontinued Medications Al Hydrox/Mg Hydrox/Simethicone (Gi Cocktail Ed Use) 1 dose PO ONE ONE Stop: 07/10/21 11:33 Last Admin: 07/10/21 11:52 Dose: 1 dose Documented by: [id number] Sodium Chloride (Nss 1000ml) 500 mls @ 999 mls/hr IV .Q31M ONE Stop: 07/10/21 12:02 Last Infusion: 07/10/21 12:48 Dose: 0 mls/hr Documented by: [id number] Admin: 07/10/21 12:14 Dose: 999 mls/hr Documented by: [id number] Ondansetron HCl (Ondansetron Inj 2 Mg/Ml 2 Ml Vial) 4 mg IV NOW STA Stop: 07/10/21 11:18 Last Admin: 07/10/21 12:14 Dose: 4 mg Documented by: [id number] Imaging Data Radiologist's Impression: Abdomen/Pelvis CT 07/10/21 11:32 CT abd pelvis wo con CLINICAL HISTORY: nausea, hital hernia known TECHNIQUE: Helical axial images of the abdomen and pelvis were obtained. Automated dose lowering techniques and/or adjustment according to patient size were utilized for this exam. This exam was performed without intravenous contrast. COMPARISON: None available at the time of this dictation. FINDINGS: Lower chest: Atelectasis versus scarring is seen in the bilateral lung bases. Liver: Surgical clip is seen about the gallbladder fossa. There is a subcentimeter hypodensity in the left lobe of the liver which is unchanged from prior exam. Gallbladder and biliary tree: No calcified gallstones. Normal caliber wall. No intra- or extrahepatic biliary ductal dilation. Pancreas: Unremarkable, no focal lesions. Spleen: Unremarkable. Adrenals: Unremarkable. Kidneys and ureters: Bilateral extrarenal pelvis is seen. Bladder: Unremarkable. Reproductive organs: Calcification is noted in the uterus which may represent a calcified fibroid. Bowel: A moderate hiatal hernia is seen. No evidence of bowel obstruction. The appendix is not seen, likely surgically absent. Lymph nodes Retroperitoneal: Unremarkable. Mesenteric: Unremarkable. Pelvic: Unremarkable. Peritoneum: Unremarkable. Vessels: Atherosclerotic calcifications are seen including concentric calcif ications in the aorta indicative of significant noncalcified plaque burden. Abdominal wall: Unremarkable. Bones: Degenerative changes in the visualized spine. IMPRESSION: Moderate hiatal hernia. No evidence of bowel obstruction. ACT 112: Negative or not required by law. Electronically signed by: Rj Ness M.D. 07/10/2021 1:[address] 07/10/21 11:32 CT SCAN OF THE BRAIN WITHOUT IV CONTRAST CLINICAL HISTORY: Headache. Change in mental status. COMPARISON STUDY: CT of the brain dated 11/13/2019. TECHNIQUE: Unenhanced axial CT scan of the brain is performed from the vertex to the skull base. A dose lowering technique was utilized adhering to the principles of ALARA. CT DOSE: 1790.71 mGycm FINDINGS: Brain parenchyma: There are age-related involutional changes noting mild subcortical and periventricular microangiopathic change. There is no hemorrhage, mass effect, or evidence of acute territorial ischemia by CT criteria. [place]- white matter differentiation is preserved. No extra-axial fluid collection is seen. Ventricles, sulci, cisterns: Prominent secondary to involutional change. Intracranial vasculature: There is atherosclerotic calcification of the cavernous carotid and vertebral arteries. Calvarium: Unremarkable. Sinuses and mastoids: The visualized paranasal sinuses are clear. The mastoid air cells are well pneumatized. Orbits: The bony orbits are grossly intact. There are bilateral ocular lens implants. IMPRESSION: There is no hemorrhage, mass effect, or evidence of acute territorial ischemia by CT criteria. ACT 112: Negative or not required by law. Electronically signed by: Ashvin Thomas M.D. 07/10/2021 12:50 PM Chest X-Ray 07/10/21 11:38 SINGLE VIEW CHEST CLINICAL HISTORY: Nausea. Change in mental status FINDINGS: An AP, portable, upright chest radiograph is compared to study dated 07/04/2021. A 2-lead cardiac pacemaker is unchanged in position. A small hiatal hernia is noted. The cardiomediastinal silhouette is unremarkable noting atherosclerotic calcification of the thoracic aorta. Chronic interstitial thickening and elevation of the right hemidiaphragm is similar to previous. Scarring/atelectasis is seen at the lung bases. No airspace consolidation or large pleural effusion is identified. No pneumothorax is seen. The skeletal structures are osteopenic. The bony thorax is grossly intact. IMPRESSION: No acute cardiopulmonary abnormality. ACT 112: Negative or not required by law. Electronically signed by: Ashvin Thomas M.D. 07/10/2021 12:21 PM Discharge Plan Visit Data Chief Complaint: Nausea Stated Complaint: NAUSEA, DIATAL HERNIA NOT HAVING RELIEF ED Provider: Rod Nunez Discharge Problem: Nausea, Hernia, hiatal, Chronic hyponatremia Patient Disposition: Admitted As Inpatient Discharge Instructions Interventions: ED Discharge Assessment Last Done: 07/10/21 14:44
[2021-07-10 11:47] LABS: Appearance Urine Clear (Clear); Bilirubin Urine Negative (Negative); Blood Urine Negative (Negative); Color Urine Yellow; Glucose Urine UA Negative (Negative); Ketones Urine Negative (Negative); Leukocyte Esterase Urine Negative (Negative); Nitrite Urine Negative (Negative); Protein Urine Negative (Negative); Specific Gravity Urine 1.005 (1.000-1.030); Urobilinogen Urine Negative (Negative)
[2021-07-10 12:18] LABS: Basophils # (auto) 0.02 K/uL (0-0.2); Basophils % (auto) 0.3 %; Eosinophils # (auto) 0.29 K/uL (0-0.5); Eosinophils % (auto) 4.2 %; Hematocrit (blood only) 36.6 % (37-47); Hemoglobin 12.1 g/dL (12.0-16.0); Immature Granulocytes # (auto) 0.01 K/uL (0.00-0.02); Immature Granulocytes % (auto) 0.1 %; Lymphocytes # (auto) 1.07 K/uL (1.2-3.4); Lymphocytes % (auto) 15.4 %; Mean Corpuscular Hemoglobin 28.1 pg (25-34); Mean Corpuscular Hgb Conc 33.1 g/dL (32-36); Mean Corpuscular Volume 84.9 fL (80-100); Mean Platelet Volume 8.9 fL (7.4-10.4); Monocytes # (auto) 0.67 K/uL (0.11-0.59); Monocytes % (auto) 9.7 %; Neutrophils # (auto) 4.87 K/uL (1.4-6.5); Neutrophils % (auto) 70.3 %; Platelet Count 338 K/uL (130-400); RDW Coefficient of Variation 13.8 % (11.5-14.5); RDW Standard Deviation 42.9 fL (36.4-46.3); Red Blood Count 4.31 M/uL (4.2-5.4); White Blood Count 6.93 K/uL (4.8-10.8)
--- NOTE | 2021-07-10 12:22 | XRay Report ---
SINGLE VIEW CHEST CLINICAL HISTORY: Nausea. Change in mental status FINDINGS: An AP, portable, upright chest radiograph is compared to study dated 07/04/2021. A 2-lead c ardiac pacemaker is unchanged in position. A small hiatal hernia is noted. The cardiomediastinal silh ouette is unremarkable noting atherosclerotic calcification of the thoracic aorta. Chronic interstiti al thickening and elevation of the right hemidiaphragm is similar to previous. Scarring/atelectasis i s seen at the lung bases. No airspace consolidation or large pleural effusion is identified. No pneum othorax is seen. The skeletal structures are osteopenic. The bony thorax is grossly intact. IMPRESSION: No acute cardiopulmonary abnormality. ACT 112: Negative or not required by law. Electronically signed by: Ashvin Thomas M.D. 07/10/2021 12:21 PM
[2021-07-10 12:43] LABS: Alanine Aminotransferase 14 U/L (12-78); Albumin Level 3.3 gm/dl (3.4-5.0); Aspartate Aminotransferase 14 U/L (15-37); Blood Urea Nitrogen 11 mg/dl (7-18); Calcium 9.1 mg/dl (8.5-10.1); Carbon Dioxide 26 mmol/L (21-32); Chloride 99 mmol/L (98-107); Creatinine Clr Calc Pharmacy 39.2 ml/min; Est GFR (Non-African American) 42.3 ml/min; Glucose 103 mg/dl (70-99); Lipase 142 U/L (73-393); Potassium 3.9 mmol/L (3.5-5.1); Sodium 133 mmol/L (136-145)
[2021-07-10 12:48] LABS: Albumin Globulin Ratio 0.9 (0.9-2); Alkaline Phosphatase 108 U/L (45-117); Bilirubin,Total 0.5 mg/dl (0.2-1); Globulin 3.8 gm/dl (2.5-4.0); Total Protein 7.1 gm/dl (6.4-8.2); Troponin I < 0.015 ng/ml (0-0.045)
--- NOTE | 2021-07-10 12:51 | CT Scan Report ---
CT SCAN OF THE BRAIN WITHOUT IV CONTRAST CLINICAL HISTORY: Headache. Change in mental status. COMPARISON STUDY: CT of the brain dated 11/13/2019. TECHNIQUE: Unenhanced axial CT scan of the brain is performed from the vertex to the skull base. A do se lowering technique was utilized adhering to the principles of ALARA. CT DOSE: 1790.71 mGycm FINDINGS: Brain parenchyma: There are age-related involutional changes noting mild subcortical and periventric ular microangiopathic change. There is no hemorrhage, mass effect, or evidence of acute territorial i schemia by CT criteria. [place]-white matter differentiation is preserved. No extra-axial fluid collecti on is seen. Ventricles, sulci, cisterns: Prominent secondary to involutional change. Intracranial vasculature: There is atherosclerotic calcification of the cavernous carotid and vertebr al arteries. Calvarium: Unremarkable. Sinuses and mastoids: The visualized paranasal sinuses are clear. The mastoid air cells are well pneu matized. Orbits: The bony orbits are grossly intact. There are bilateral ocular lens implants. IMPRESSION: There is no hemorrhage, mass effect, or evidence of acute territorial ischemia by CT crit sandy. ACT 112: Negative or not required by law. Electronically signed by: Ashvin Thomas M.D. 07/10/2021 12:50 PM
--- NOTE | 2021-07-10 13:19 | CT Scan Report ---
CT abd pelvis wo con CLINICAL HISTORY: nausea, hital hernia known TECHNIQUE: Helical axial images of the abdomen and pelvis were obtained. Automated dose lowering tech niques and/or adjustment according to patient size were utilized for this exam. This exam was perfor med without intravenous contrast. COMPARISON: None available at the time of this dictation. FINDINGS: Lower chest: Atelectasis versus scarring is seen in the bilateral lung bases. Liver: Surgical clip is seen about the gallbladder fossa. There is a subcentimeter hypodensity in the left lobe of the liver which is unchanged from prior exam. Gallbladder and biliary tree: No calcified gallstones. Normal caliber wall. No intra- or extrahepatic biliary ductal dilation. Pancreas: Unremarkable, no focal lesions. Spleen: Unremarkable. Adrenals: Unremarkable. Kidneys and ureters: Bilateral extrarenal pelvis is seen. Bladder: Unremarkable. Reproductive organs: Calcification is noted in the uterus which may represent a calcified fibroid. Bowel: A moderate hiatal hernia is seen. No evidence of bowel obstruction. The appendix is not seen, likely surgically absent. Lymph nodes Retroperitoneal: Unremarkable. Mesenteric: Unremarkable. Pelvic: Unremarkable. Peritoneum: Unremarkable. Vessels: Atherosclerotic calcifications are seen including concentric calcifications in the aorta ind icative of significant noncalcified plaque burden. Abdominal wall: Unremarkable. Bones: Degenerative changes in the visualized spine. IMPRESSION: Moderate hiatal hernia. No evidence of bowel obstruction. ACT 112: Negative or not required by law. Electronically signed by: Rj Ness M.D. 07/10/2021 1:18 PM
--- NOTE | 2021-07-10 15:20 | Electrocardiogram Report ---
Test Reason : Blood Pressure : / mmHG Vent. Rate : 062 BPM Atrial Rate : 062 BPM P-R Int : 218 ms QRS Dur : 090 ms QT Int : 418 ms P-R-T Axes : 000 -20 021 degrees QTc Int : 424 ms Atrial-paced rhythm with prolonged AV conduction with Premature atrial complexes Minimal voltage criteria for LVH, may be normal variant Septal infarct (cited on or before 04-JUL-2020) Abnormal ECG When compared with ECG of 04-JUL-2021 04:13, No significant change Confirmed by Kb Perez ([id number]) on 07/10/2021 3:20:00 PM Referred By: Arpit [place] Confirmed By:Kb Perez
--- NOTE | 2021-07-10 15:26 | Gastrointestinal Consultation ---
Date of Consultation July 10, 2021 Assessment & Plan (1) Nausea: (2) Hernia, hiatal: Pt is a 85 y/o female w hx of GERD, hiatal hernia, celiac disease who presented to ED w c/o nausea w/o vomiting unrelieved by Zofran. Lexapro 10mg recently DC'd by PCP, also she had take out food ? cross contamination of gluten. Workup so far negative for infection, GI obstruction, hernia incarceration. - PPI IV BID - Try Zofran IV but if not relieving nausea, then can try Emend 115mg IV x 1 dose - CL diet, advance as tolerated - Arrange gastric emptying study to r/o gastroparesis - EGD last done in 2019, defer repeat at this time - Please recall GI prn Supervising Physician Co-Signing Physician Notes Worsening nausea ? dietary indiscretion +/- a component of gastroparesis. Known to have chronic nausea with a prior endoscopy in 2019 showing medium sized hiatal hernia with acute worsening leading to ER visit. Feeling slightly better when seen, benign exam. She is already undergoing workup for potential surgery for a hiatal hernia as an outpatient. Agree with further plan of care as above. History of Present Illness Reason for Consultation: N/V, hx of hiatal hernia Requesting Physician: Dr. Elio Gee Attending Physician: Dr. Linda Hernandez History of Present Illness Pt is a 85 y/o female w PMHx of tachybrady syndrome, Afib s/p pacemaker, Watchmman device, CHF, HTH, hypothyroidism, HLD, GERD, hiatal hernia, celiac disease who presented to ED w c/o nausea w/o vomiting x 2 weeks. Denies fever, chills, CP, SOB, abd pain. Does note some constipation, will take Miralax at home prn. She denies sick contact. COVID 19 negative. Only new med change is Lexapro was Dc'd by PCP recently. She is on gluten free diet but recalled having take out coconut shrimp few days ago. ? cross contamination. She takes Nexium and Pepcid at home for heartburn and report heartburn/reflux controlled. Tried Zofran at home for nausea but not helpful. CXR, CT head unremarkable. CT abd/pelvis w signs of hiatal hernia but no bowel obstruction. Labs w/o leukocytosis, electrolyte imbalance, normal kidney and liver functions, UA unremarkable. EGD/Colonoscopy 2019: hiatal hernia, adenomatous polyp. Allergies Allergy/AdvReac Type Severity Reaction Status Date / Time wheat Allergy Intermediate CELIAC Verified 07/10/21 13:51 DISEASE Iodinated Contrast Media AdvReac Intermediate "Tingly Unverified 07/10/21 13:51 all over" Nmvqxjg-EWS-DqB Reductase AdvReac Intermediate MUSCLE AND Verified 07/10/21 13:51 Inhibitor BACK ACHES [Zkcmrqx-Yuu-Pqb Reductase Inhibitor] diltiazem [From Cardizem] AdvReac Unknown Verified 07/10/21 13:51 epinephrine AdvReac Unknown "WEIRD Verified 07/10/21 13:51 FEELING" lidocaine AdvReac Unknown "FEELS Verified 07/10/21 13:51 WEIRD" Home Medications Medication Instructions Recorded Confirmed Type esomeprazole magnesium 20 mg 20 mg PO QAM 01/18/19 07/10/21 History capsule,delayed release (Nexium) hydralazine 25 mg tablet 25 mg PO QID 01/18/19 07/10/21 History levothyroxine 50 mcg tablet 50 mcg PO QAM 01/18/19 07/10/21 History (Synthroid) lorazepam 0.5 mg tablet 0.5 mg PO HS PRN 01/18/19 07/10/21 History magnesium oxide 400 mg PO QAM 01/18/19 07/10/21 History potassium chloride 20 mEq 20 meq PO QAM 01/18/19 07/10/21 History tablet,extended release (K-Tab) aspirin 81 mg tablet,delayed 81 mg PO HS 10/30/19 07/10/21 History release (Aspirin Low Dose) cholecalciferol (vitamin D3) 50 2,000 unit PO HS 10/30/19 07/10/21 History mcg (2,000 unit) tablet (Vitamin D3) folic acid 1 mg tablet 1 mg PO QAM 10/30/19 07/10/21 History furosemide 20 mg tablet (Lasix) 10 mg PO Q2D 10/30/19 07/10/21 History losartan 50 mg tablet (Cozaar) 100 mg PO QAM 10/30/19 07/10/21 History sotalol 80 mg tablet (Sotalol AF) 40 mg PO BID 11/13/19 07/10/21 History melatonin 10 mg tablet 10 mg PO HS PRN 07/04/20 07/10/21 History multivitamin 1 tab PO QAM 07/04/20 07/10/21 History famotidine 20 mg tablet (Pepcid AC) 20 mg PO HS 07/10/21 07/10/21 History ondansetron HCl 4 mg tablet 4 mg PO Q8H PRN 07/10/21 07/10/21 History (Zofran) Patient History Medical History Anxiety Atrial fibrillation Celiac disease Chronic back pain SPINAL STENOSIS Congestive heart failure HX 1 1/2 YR AGO GERD (gastroesophageal reflux disease) Hiatal hernia History of cardioversion X 4-5 Hyperlipidemia Hypertension Hypothyroidism Iron deficiency anemia Migraine HX Nausea and vomiting after administration of anesthetic agent Osteoarthritis 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 Sleep apnea BORDERLINE-DOES NOT USE MACHINE Urinary bladder incontinence Surgical History History of adenoidectomy History of appendectomy History of bilateral tubal ligation History of cardiac cath 3 YRS AGO NO STENTS-"CLEAN VESSELS" History of cataract extraction History of tonsillectomy Surgery, elective COCCYXGECTOMY Family History Mother Family history of diabetes mellitus Hypertension Macular degeneration Father Heart disease Social History Smoking Status: Former smoker Tobacco Type: Cigarettes packs per day: 1; Years Smoked: 35; Second Hand Exposure: No; Hx Alcohol Use: No Hx Substance Use: No Preferred Language: Romansh Communication Ability: Effective Yard Stocker Required: No Beliefs That Will Affect Care: None marital status: / Current Living Situation: Alone Feels Safe at Home: Yes Assistive Devices: Cane and Glasses Review of Systems Review of Systems: All systems reviewed & are unremarkable except as noted in HPI & below Physical Exam Constitutional: WD/WN, vitals as above well groomed, cooperative and comfortable Eyes: PERRL, conjunctivae normal, anicteric sclerae ENMT: external ear and nose normal, oropharynx normal Respiratory: normal respiratory effort, lungs clear to auscultation Cardiovascular: RRR, no murmur, no edema Gastrointestinal (Abdomen): normal bowel sounds, soft, nontender, no hepa tosplenomegaly Skin: no rashes, warm and dry no jaundice Psychiatric: A+Ox3, euthymic affect Lymphatic: no lymphedema Results & Data ([facility]) Vital Signs (Past 12 Hours) Vital Signs Temp Pulse Pulse Resp BP BP Pulse Ox 07/10/21 14:36 67 18 171/84 H 95 07/10/21 13:40 60 16 175/66 H 97 07/10/21 12:49 66 18 176/80 H 96 07/10/21 12:18 62 18 187/89 H 97 07/10/21 11:05 36.6 C 77 20 182/92 H 97
[2021-07-10] MEDS ORDERED: ACETAMINOPHEN 325 MG TAB PO PRN (15:28)
[2021-07-10] MEDS ORDERED: ALUMINUM/MAGNESIUM SUSP 30 ML UDC PO PRN (15:28)
[2021-07-10] MEDS ORDERED: LORazepam 0.5 MG TAB PO PRN (15:28)
[2021-07-10] MEDS ORDERED: MAGNESIUM HYDROXIDE SUSP 30 ML UDC PO PRN (15:28)
[2021-07-10] MEDS ORDERED: POLYETHYLENE (MIRALAX) 17 GM PACK PO PRN (15:28)
--- NOTE | 2021-07-10 15:29 | History & Physical Report ---
Date of Service July 10, 2021 Assessment & Plan (1) Nausea: (2) Hernia, hiatal: Plan: This is a 85-year-old female who has significant past medical history of PAF with history of watchman procedure, TBS status post PPM, HTN, CKD stage III, HLD, hypothyroidism, celiac's disease, CHRISTIANA, spinal stenosis and LUZ MARINA who presents to ED secondary to nausea and weight loss x1 month. She was recently seen in outpatient setting and underwent further lab testing regarding TTG, IgA, vitamin D and folic acid. These were unremarkable. She has known history of hiatal hernia and consideration was made to eval for possible surgical intervention. She was seen and evaluated in ED on 07/04 And work-up was unremarkable. She was encouraged to take her home Nexium, Zofran, Gas-X and Pepcid. She represents back to ED today secondary to nausea and unable to tolerate food. Today she underwent a CBC, CMP, UA, CT abdomen pelvis and head CT which was unremarkable. CT abdomen pelvis did reveal moderate hiatal hernia. Admit to med/surg consult GI clear liquid diet, advance as toleated gastric emptying study ordered IV PPI BID will switch antiemetic to phenergan 12.5mg prn, if does not work consider Emend 115mg IV x 1 continue pecid add stool softener dialy last EGD/Cscope 2018 - GI defering at this time (3) Atrial fibrillation: Plan: s/p watchman procedure Continue Betapace (4) Hypertension: Plan: BP elevated continue hydralazine add prn hydralazine IV SBP > 180 hold lasix, pt only takes on occasion for LE edema (5) Tachy-gaviota syndrome: Plan: s/p PPM (6) Mild cognitive impairment: Plan: discussed with daughter Ju who notes that since last January when pt Twin Sister she has noticed a gradual decline in memory she does still live alone, but last November she was able to travel to [place] by herself with out difficulty Daughter unsure if 2/2 to depression from grief or if truly having memory decline in setting of age will obtain ST eval for cognition (7) DVT prophylaxis: Plan: SQ lovenox Dispo: med/surg PCP: Lita Full Code Pt was seen and examined in collaboration with Dr. Gee, please see addendum Admission and Anticipated Discharge Date Admission Date: July 10, 2021 History of Present Illness Chief Complaint: nausea and weight loss x 1 month. Primary Care Provider: Arpit London MD This is a 85-year-old female who has significant past medical history of PAF with history of watchman procedure, TBS status post PPM, HTN, CKD stage III, HLD, hypothyroidism, celiac's disease, CHRISTIANA, spinal stenosis and LUZ MARINA who presents to ED secondary to nausea and weight loss x1 month. She has no prior history of GERD and hiatal hernia. She admits to decreased appetite over the past month. She has been actively trying to lose weight and went from 220 pounds to approximately 194 pounds. She also follows a gluten-free diet due to concern for celiac disease. She was recently seen and evaluated by PCP who did lab work-up. Her last EGD/colonoscopy was in 2019 which revealed hiatal hernia and adenomatous polyp.She denies any fever, chills, sweats, lightheadedness, dizziness chest pain, shortness with, cough, URI symptoms, vomiting,, diarrhea, melena or hematochezia. She admits to being more on the constipated side. Her last BM was 2 days ago which is unusual for her. Typically she would go every day. In ED patient remained hemodynamically stable. Her CBC and CMP was generally unremarkable except for mild hyponatremia at 133. Her urinalysis was negative. CT abdomen pelvis revealed moderate hiatal hernia but no evidence of bowel obstruction. Head CT was negative for acute intracranial abnormality. Chest x-ray was negative for acute abnormality. Allergies Allergy/AdvReac Type Severity Reaction Status Date / Time wheat Allergy Intermediate CELIAC Verified 07/10/21 13:51 DISEASE Iodinated Contrast Media AdvReac Intermediate "Tingly Unverified 07/10/21 13:51 all over" Qiclutl-FXS-WbD Reductase AdvReac Intermediate MUSCLE AND Verified 07/10/21 1 3:51 Inhibitor BACK ACHES [Rfnoqrm-Nuj-Eyx Reductase Inhibitor] diltiazem [From Cardizem] AdvReac Unknown Verified 07/10/21 13:51 epinephrine AdvReac Unknown "WEIRD Verified 07/10/21 13:51 FEELING" lidocaine AdvReac Unknown "FEELS Verified 07/10/21 13:51 WEIRD" Home Medications Medication Instructions Recorded Confirmed Type esomeprazole magnesium 20 mg 20 mg PO QAM 01/18/19 07/10/21 History capsule,delayed release (Nexium) hydralazine 25 mg tablet 25 mg PO QID 01/18/19 07/10/21 History levothyroxine 50 mcg tablet 50 mcg PO QAM 01/18/19 07/10/21 History (Synthroid) lorazepam 0.5 mg tablet 0.5 mg PO HS PRN 01/18/19 07/10/21 History magnesium oxide 400 mg PO QAM 01/18/19 07/10/21 History potassium chloride 20 mEq 20 meq PO QAM 01/18/19 07/10/21 History tablet,extended release (K-Tab) aspirin 81 mg tablet,delayed 81 mg PO HS 10/30/19 07/10/21 History release (Aspirin Low Dose) cholecalciferol (vitamin D3) 50 2,000 unit PO HS 10/30/19 07/10/21 History mcg (2,000 unit) tablet (Vitamin D3) folic acid 1 mg tablet 1 mg PO QAM 10/30/19 07/10/21 History furosemide 20 mg tablet (Lasix) 10 mg PO Q2D 10/30/19 07/10/21 History losartan 50 mg tablet (Cozaar) 100 mg PO QAM 10/30/19 07/10/21 History sotalol 80 mg tablet (Sotalol AF) 40 mg PO BID 11/13/19 07/10/21 History melatonin 10 mg tablet 10 mg PO HS PRN 07/04/20 07/10/21 History multivitamin 1 tab PO QAM 07/04/20 07/10/21 History famotidine 20 mg tablet (Pepcid AC) 20 mg PO HS 07/10/21 07/10/21 History ondansetron HCl 4 mg tablet 4 mg PO Q8H PRN 07/10/21 07/10/21 History (Zofran) glycerin (adult) 1 supp NV DAILY PRN #12 ea 07/11/21 Rx promethazine 25 mg tablet 25 mg PO Q6H PRN #20 tab 07/11/21 Rx 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 Sleep apnea BORDERLINE-DOES NOT USE MACHINE Urinary bladder incontinence Surgical History History of adenoidectomy History of appendectomy History of bilateral tubal ligation History of cardiac cath 3 YRS AGO NO STENTS-"CLEAN VESSELS" History of cataract extraction History of tonsillectomy Surgery, elective COCCYXGECTOMY Family History Mother Family history of diabetes mellitus Hypertension Macular degeneration Father Heart disease Social History Smoking Status: Former smoker Tobacco Type: Cigarettes packs per day: 1; Years Smoked: 35; Second Hand Exposure: No; Do You Dip or Chew Tobacco: No; Tobacco Cessation Education Requested by Patient: No Hx Alcohol Use: No Hx Substance Use: No Preferred Language: Macedonian Communication Ability: Effective Power Generation Equipment Repairer Required: No Beliefs That Will Affect Care: None marital status: / Current Living Situation: Alone Other Information That Helps Us Care for You: No Feels Safe at Home: Yes Safety Concerns: Feels Safe At This Time Assistive Devices: None Review of Systems Review of Systems: All systems reviewed & are unremarkable except as noted in HPI & below Physical Exam Physical Exam: Constitutional: WD/WN, vitals as above, NAD, sitting up in bed, pleasant, conversing easily Head: Normocephalic, Atraumatic Eyes: PERRL, conjunctivae normal, anicteric sclerae ENMT: external ear and nose normal, oropharynx normal Neck: trachea midline, no thyromegaly normal visual inspection Respiratory: normal respiratory effort, lungs clear to auscultation, no wheeze, rales, rhonchi. Normal insp/exp effort, no accessory muscle use Cardiovascular: RRR, no murmur, no edema Vessels: no JVD or carotid bruit Chest: normal inspection of chest Abdomen: normal bowel sounds, soft, nontender, no hepatosplenomegaly Musculoskeletal: no cyanosis or clubbing, extremities motor strength 5/5 Skin: no rashes, warm and dry normal turgor Neurologic: PERRL, EOMI, accommodation nl, no face palsy, no dysarthria CN's II-XI intact bilaterally and moves all extremities Psychiatric: A+Ox3, euthymic affect Lymphatic: no cervical or axillary lymphadenopathy : deferred Results & Data Results & Data ([facility]) Vital Signs (Past 12 Hours) Vital Signs Temp Pulse Pulse Resp BP BP Pulse Ox 07/10/21 14:36 67 18 171/84 H 95 07/10/21 13:40 60 16 175/66 H 97 07/10/21 12:49 66 18 176/80 H 96 07/10/21 12:18 62 18 187/89 H 97 07/10/21 11:05 36.6 C 77 20 182/92 H 97 Diagnostic Findings Abdomen/Pelvis CT 07/10/21 11:32 CT abd pelvis wo con CLINICAL HISTORY: nausea, hital hernia known TECHNIQUE: Helical axial images of the abdomen and pelvis were obtained. Automated dose lowering techniques and/or adjustment according to patient size were utilized for this exam. This exam was performed without intravenous contrast. COMPARISON: None available at the time of this dictation. FINDINGS: Lower chest: Atelectasis versus scarring is seen in the bilateral lung bases. Liver: Surgical clip is seen about the gallbladder fossa. There is a subcentimeter hypodensity in the left lobe of the liver which is unchanged from prior exam. Gallbladder and biliary tree: No calcified gallstones. Normal caliber wall. No intra- or extrahepatic biliary ductal dilation. Pancreas: Unremarkable, no focal lesions. Spleen: Unremarkable. Adrenals: Unremarkable. Kidneys and ureters: Bilateral extrarenal pelvis is seen. Bladder: Unremarkable. Reproductive organs: Calcification is noted in the uterus which may represent a calcified fibroid. Bowel: A moderate hiatal hernia is seen. No evidence of bowel obstruction. The appendix is not seen, likely surgically absent. Lymph nodes Retroperitoneal: Unremarkable. Mesenteric: Unremarkable. Pelvic: Unremarkable. Peritoneum: Unremarkable. Vessels: Atherosclerotic calcifications are seen including concentric calcifications in the aorta indicative of significant noncalcified plaque burden. Abdominal wall: Unremarkable. Bones: Degenerative changes in the visualized spine. IMPRESSION: Moderate hiatal hernia. No evidence of bowel obstruction. ACT 112: Negative or not required by law. Electronically signed by: Rj Ness M.D. 07/10/2021 1:[address] 07/10/21 11:32 CT SCAN OF THE BRAIN WITHOUT IV CONTRAST CLINICAL HISTORY: Headache. Change in mental status. COMPARISON STUDY: CT of the brain dated 11/13/2019. TECHNIQUE: Unenhanced axial CT scan of the brain is performed from the vertex to the skull base. A dose lowering technique was utilized adhering to the principles of ALARA. CT DOSE: 1790.71 mGycm FINDINGS: Brain parenchyma: There are age-related involutional changes noting mild subcortical and periventricular microangiopathic change. There is no hemorrhage, mass effect, or evidence of acute territorial ischemia by CT criteria. Cedillo- white matter differentiation is preserved. No extra-axial fluid collection is seen. Ventricles, sulci, cisterns: Prominent secondary to involutional change. Intracranial vasculature: There is atherosclerotic calcification of the cavernous carotid and vertebral arteries. Calvarium: Unremarkable. Sinuses and mastoids: The visualized paranasal sinuses are clear. The mastoid air cells are well pneumatized. Orbits: The bony orbits are grossly intact. There are bilateral ocular lens implants. IMPRESSION: There is no hemorrhage, mass effect, or evidence of acute territorial ischemia by CT criteria. ACT 112: Negative or not required by law. Electronically signed by: Ashvin Thomas M.D. 07/10/2021 12:50 PM Chest X-Ray 07/10/21 11:38 SINGLE VIEW CHEST CLINICAL HISTORY: Nausea. Change in mental status FINDINGS: An AP, portable, upright chest radiograph is compared to study dated 07/04/2021. A 2-lead cardiac pacemaker is unchanged in position. A small hiatal hernia is noted. The cardiomediastinal silhouette is unremarkable noting atherosclerotic calcification of the thoracic aorta. Chronic interstitial thickening and elevation of the right hemidiaphragm is similar to previous. Scarring/atelectasis is seen at the lung bases. No airspace consolidation or large pleural effusion is identified. No pneumothorax is seen. The skeletal structures are osteopenic. The bony thorax is grossly intact. IMPRESSION: No acute cardiopulmonary abnormality. ACT 112: Negative or not required by law. Electronically signed by: Ashvin Thomas M.D. 07/10/2021 12:21 PM Medications Administered Medication List Discontinued Medications Al Hydrox/Mg Hydrox/Simethicone (Gi Cocktail Ed Use) 1 dose PO ONE ONE Stop: 07/10/21 11:33 Last Admin: 07/10/21 11:52 Dose: 1 dose Documented by: [id number] Sodium Chloride (Nss 1000ml) 500 mls @ 999 mls/hr IV .Q31M ONE Stop: 07/10/21 12:02 Last Infusion: 07/10/21 12:48 Dose: 0 mls/hr Documented by: [id number] Admin: 07/10/21 12:14 Dose: 999 mls/hr Documented by: [id number] Ondansetron HCl (Ondansetron Inj 2 Mg/Ml 2 Ml Vial) 4 mg IV NOW STA Stop: 07/10/21 11:18 Last Admin: 07/10/21 12:14 Dose: 4 mg Documented by: [id number] ECG Rhythm: other (Atrial paced with prolonged AV conduction with PACs) COVID-19 Results Results COVID-19 Adm Lab Results: RBC 4.31 M/uL (4.2-5.4) 07/10/21 WBC 6.93 K/uL (4.8-10.8) 07/10/21 Hgb 12.1 g/dL (12.0-16.0) 07/10/21 Hct 36.6 % (37-47) L 07/10/21 Plt Count 338 K/uL (130-400) 07/10/21 Neutrophils (%) (Auto) 70.3 % 07/10/21 Lymphocytes (%) (Auto) 15.4 % 07/10/21 Monocytes # (Auto) 0.67 K/uL (0.11-0.59) H 07/10/21 Eosinophils # (Auto) 0.29 K/uL (0-0.5) 07/10/21 Immature Granulocyte % (Auto) 0.1 % 07/10/21 Neutrophils # (Auto) 4.87 K/uL (1.4-6.5) 07/10/21 Lymphocytes # (Auto) 1.07 K/uL (1.2-3.4) L 07/10/21 Monocytes # (Auto) 0.67 K/uL (0.11-0.59) H 07/10/21 Eosinophils # (Auto) 0.29 K/uL (0-0.5) 07/10/21 Basophils # (Auto) 0.02 K/uL (0-0.2) 07/10/21 Immature Granulocyte # (Auto) 0.01 K/uL (0.00-0.02) 07/10/21 Na 133 mmol/L (136-145) L 07/10/21 K 3.9 mmol/L (3.5-5.1) 07/10/21 Cl 99 mmol/L (98-107) 07/10/21 CO2 26 mmol/L (21-32) 07/10/21 Anion Gap 8.0 (3-11) 07/10/21 BUN 11 mg/dl (7-18) 07/10/21 Creatinine 1.18 mg/dl (0.6-1.2) 07/10/21 BUN/Creatinine Ratio 9.0 (10-20) L 07/10/21 Glucose Level 103 mg/dl (70-99) H 07/10/21 Ca 9.1 mg/dl (8.5-10.1) 07/10/21 Total Bilirubin 0.5 mg/dl (0.2-1) 07/10/21 AST/SGOT 14 U/L (15-37) L 07/10/21 ALT/SGPT 14 U/L (12-78) 07/10/21 Alkaline Phosphatase 108 U/L (45-117) 07/10/21 Total Protein 7.1 gm/dl (6.4-8.2) 07/10/21 Albumin 3.3 gm/dl (3.4-5.0) L 07/10/21 Globulin 3.8 gm/dl (2.5-4.0) 07/10/21 Albumin/Globulin Ratio 0.9 (0.9-2) 07/10/21 Troponin I < 0.015 ng/ml (0-0.045) 07/10/21 COVID-19 PCR NEGATIVE (Negative) 07/10/21 Chest X-Ray 07/10/21 Code Status & VTE Plan Code Status Full Code VTE Prophylaxis Plan VTE Prophylaxis will be ordered: Yes Supervising Physician Co-Signing Physician Notes Persistent nausea Hisotry o hiatal hernia Atrial fibrillation status post watchman procedure History of hypertension Patient presents with ongoing nausea and weight loss for the past 1 month. Start patient on clear liquid diet and advance as tolerated. She had GI input. Plan for gastric emptying study. Patient denies any chest pain, shortness of breath or abdominal pain. Dynamically doing okay. I performed a history and physical examination of the patient on 07/10/21, including specifically H&P. I have discussed the patient's management with the advanced practitioner. Please refer to the Shyanne Chester note for the documented findings and plan of care. (1) Hypertension Hypertension type: essential hypertension Qualified Code(s): I10 - Essential (primary) hypertension
[2021-07-10] MEDS ORDERED: SODIUM CHLORIDE 0.9% 1000ML 1,000 ML IV SCH (16:30)
[2021-07-10] MEDS: hydrALAZINE HCL 25 MG TAB PO SCH ×2 (17:19→21:38)
[2021-07-10] MEDS ORDERED: hydrALAZINE HCL 20 MG/ML VIAL IV PRN (17:42)
[2021-07-10] MEDS: PROMETHAZINE HCL 12.5 MG in SODIUM CHLORIDE 0.9% 50 ML IV PRN (19:43)
[2021-07-10] MEDS ORDERED: FAMOTIDINE 20 MG TAB PO SCH (21:00)
[2021-07-10] MEDS ORDERED: CHOLECALCIFEROL 1,000 UNITS 25 MCG TAB PO SCH (21:00)
[2021-07-10] MEDS ORDERED: ASPIRIN 81 MG ECTAB PO SCH (21:00)
[2021-07-10] MEDS: SOTALOL HCL 80 MG TAB PO SCH (21:36)
[2021-07-10] MEDS: PANTOprazole 40 MG in SYRINGE 0 ML IV SCH (21:37)
[2021-07-11] MEDS ORDERED: LEVOTHYROXINE SODIUM 50 MCG TABLET PO SCH (06:30)
[2021-07-11] MEDS: PANTOprazole 40 MG in SYRINGE 0 ML IV SCH (08:55)
[2021-07-11] MEDS: hydrALAZINE HCL 25 MG TAB PO SCH ×3 (08:56→17:09)
[2021-07-11] MEDS: SOTALOL HCL 80 MG TAB PO SCH (08:56)
[2021-07-11] MEDS ORDERED: PANTOprazole 40 MG TAB PO SCH (09:00)
[2021-07-11] MEDS ORDERED: MAGNESIUM OXIDE 400 MG TAB PO SCH (09:00)
[2021-07-11] MEDS ORDERED: FOLIC ACID 1 MG TAB PO SCH (09:00)
[2021-07-11] MEDS ORDERED: MULTIVITAMIN TAB PO SCH (09:00)
[2021-07-11] MEDS ORDERED: ENOXAPARIN INJ 40 MG/0.4 ML SYR SQ SCH (09:00)
[2021-07-11] MEDS ORDERED: LOSARTAN POTASSIUM 50 MG TAB PO SCH (09:00)
[2021-07-11] MEDS: PROMETHAZINE HCL 12.5 MG in SODIUM CHLORIDE 0.9% 50 ML IV PRN (09:50)
--- NOTE | 2021-07-11 17:24 | Discharge Summary ---
Date of Service July 11, 2021 Admission HPI Per Admitting Provider This is a 85-year-old female who has significant past medical history of PAF with history of watchman procedure, TBS status post PPM, HTN, CKD stage III, HLD, hypothyroidism, celiac's disease, CHRISTIANA, spinal stenosis and LUZ MARINA who presents to ED secondary to nausea and weight loss x1 month. She has no prior history of GERD and hiatal hernia. She admits to decreased appetite over the past month. She has been actively trying to lose weight and went from 220 pounds to approximately 194 pounds. She also follows a gluten-free diet due to concern for celiac disease. She was recently seen and evaluated by PCP who did lab work-up. Her last EGD/colonoscopy was in 2019 which revealed hiatal hernia and adenomatous polyp.She denies any fever, chills, sweats, lightheadedness, dizziness chest pain, shortness with, cough, URI symptoms, vomiting,, diarrhea, melena or hematochezia. She admits to being more on the constipated side. Her last BM was 2 days ago which is unusual for her. Typically she would go every day. In ED patient remained hemodynamically stable. Her CBC and CMP was generally unremarkable except for mild hyponatremia at 133. Her urinalysis was negative. CT abdomen pelvis revealed moderate hiatal hernia but no evidence of bowel obstruction. Head CT was negative for acute intracranial abnormality. Chest x-ray was negative for acute abnormality. Admission Exam Per Admitting Provider Constitutional: WD/WN, vitals as above, NAD, sitting up in bed, pleasant, conversing easily Head: Normocephalic, Atraumatic Eyes: PERRL, conjunctivae normal, anicteric sclerae ENMT: external ear and nose normal, oropharynx normal Neck: trachea midline, no thyromegaly normal visual inspection Respiratory: normal respiratory effort, lungs clear to auscultation, no wheeze, rales, rhonchi. Normal insp/exp effort, no accessory muscle use Cardiovascular: RRR, no murmur, no edema Vessels: no JVD or carotid bruit Chest: normal inspection of chest Abdomen: normal bowel sounds, soft, nontender, no hepatosplenomegaly Musculoskeletal: no cyanosis or clubbing, extremities motor strength 5/5 Skin: no rashes, warm and dry normal turgor Neurologic: PERRL, EOMI, accommodation nl, no face palsy, no dysarthria CN's II-XI intact bilaterally and moves all extremities Psychiatric: A+Ox3, euthymic affect Lymphatic: no cervical or axillary lymphadenopathy : deferred Principal Diagnosis Nausea-resolved Hiatal hernia celiac disease Discharge Exam CONSTITUTIONAL: obese, vitals as above, generally well-appearing,NAD EYES: normal conjunctivae, no scleral icterus ENT: external ear and nose normal,MMM NECK: trachea midline RESPIRATORY: clear to auscultation bilaterally, no crackles, rales or wheezes, normal respiratory effort CARDIOVASCULAR: regular rate and rhythm, S1 and 2 heard without murmurs, gallops or rubs, no JVD, no peripheral edema GASTROINTESTINAL: soft, nontender, ND, no guarding MUSCULOSKELETAL: strength 5/5 throughout, head is normocephalic and atraumatic SKIN: warm and dry NEUROLOGIC: CN 2-12 grossly intact, no sensory deficit, normal cognition, normal speech, no tremor PSYCHIATRIC: alert cooperative and oriented to person, place and time. Euthymic mood, makes good eye contact, language grossly intact, recent and remote memory grossly intact. Discharge Data Allergies Allergy/AdvReac Type Severity Reaction Status Date / Time wheat Allergy Intermediate CELIAC Verified 07/10/21 13:51 DISEASE Iodinated Contrast Media AdvReac Intermediate "Tingly Unverified 07/10/21 13:51 all over" Kyhfzbe-ICH-SeG Reductase AdvReac Intermediate MUSCLE AND Verified 07/10/21 13:51 Inhibitor BACK ACHES [Mivaxda-Tnp-Mui Reductase Inhibitor] diltiazem [From Cardizem] AdvReac Unknown Verified 07/10/21 13:51 epinephrine AdvReac Unknown "WEIRD Verified 07/10/21 13:51 FEELING" lidocaine AdvReac Unknown "FEELS Verified 07/10/21 13:51 WEIRD" Consultations 07/10/21 13:55 ED Decision to Admit Stat 07/10/21 14:01 Consult Gastroenterology Routine Ordered Studies Laboratory Results WBC 6.93 K/uL (4.8-10.8) 07/10/21 12:05 RBC 4.31 M/uL (4.2-5.4) 07/10/21 12:05 Hgb 12.1 g/dL (12.0-16.0) 07/10/21 12:05 Hct 36.6 % (37-47) L 07/10/21 12:05 MCV 84.9 fL (80-100) 07/10/21 12:05 MCH 28.1 pg (25-34) 07/10/21 12:05 MCHC 33.1 g/dL (32-36) 07/10/21 12:05 RDW Std Deviation 42.9 fL (36.4-46.3) 07/10/21 12:05 RDW Coeff of Lupis 13.8 % (11.5-14.5) 07/10/21 12:05 Plt Count 338 K/uL (130-400) 07/10/21 12:05 MPV 8.9 fL (7.4-10.4) 07/10/21 12:05 Immature Gran % (Auto) 0.1 % 07/10/21 12:05 Neut % (Auto) 70.3 % 07/10/21 12:05 Lymph % (Auto) 15.4 % 07/10/21 12:05 [place] % (Auto) 9.7 % 07/10/21 12:05 Eos % (Auto) 4.2 % 07/10/21 12:05 Baso % (Auto) 0.3 % 07/10/21 12:05 Neut # (Auto) 4.87 K/uL (1.4-6.5) 07/10/21 12:05 Lymph # (Auto) 1.07 K/uL (1.2-3.4) L 07/10/21 12:05 [place] # (Auto) 0.67 K/uL (0.11-0.59) H 07/10/21 12:05 Eos # (Auto) 0.29 K/uL (0-0.5) 07/10/21 12:05 Baso # (Auto) 0.02 K/uL (0-0.2) 07/10/21 12:05 Immature Gran # (Auto) 0.01 K/uL (0.00-0.02) 07/10/21 12:05 Sodium 133 mmol/L (136-145) L 07/10/21 12:05 Potassium 3.9 mmol/L (3.5-5.1) 07/10/21 12:05 Chloride 99 mmol/L (98-107) 07/10/21 12:05 Carbon Dioxide 26 mmol/L (21-32) 07/10/21 12:05 Anion Gap 8.0 (3-11) 07/10/21 12:05 BUN 11 mg/dl (7-18) 07/10/21 12:05 Creatinine 1.18 mg/dl (0.6-1.2) 07/10/21 12:05 Est Cr Clr Drug Dosing 39.2 ml/min 07/10/21 12:05 Est GFR ( Amer) 49.0 ml/min 07/10/21 12:05 Est GFR (Non-Af Amer) 42.3 ml/min 07/10/21 12:05 BUN/Creatinine Ratio 9.0 (10-20) L 07/10/21 12:05 Glucose 103 mg/dl (70-99) H 07/10/21 12:05 Calcium 9.1 mg/dl (8.5-10.1) 07/10/21 12:05 Total Bilirubin 0.5 mg/dl (0.2-1) 07/10/21 12:05 AST 14 U/L (15-37) L 07/10/21 12:05 ALT 14 U/L (12-78) 07/10/21 12:05 Alkaline Phosphatase 108 U/L (45-117) 07/10/21 12:05 Troponin I < 0.015 ng/ml (0-0.045) 07/10/21 12:05 Total Protein 7.1 gm/dl (6.4-8.2) 07/10/21 12:05 Albumin 3.3 gm/dl (3.4-5.0) L 07/10/21 12:05 Globulin 3.8 gm/dl (2.5-4.0) 07/10/21 12:05 Albumin/Globulin Ratio 0.9 (0.9-2) 07/10/21 12:05 Lipase 142 U/L (73-393) 07/10/21 12:05 Urine Color Yellow 07/10/21 11:21 Urine Appearance Clear (Clear) 07/10/21 11:21 Urine pH 7.0 (4.5-7.5) 07/10/21 11:21 Ur Specific [place] 1.005 (1.000-1.030) 07/10/21 11:21 Urine Protein Negative (Negative) 07/10/21 11:21 Urine Glucose (UA) Negative (Negative) 07/10/21 11:21 Urine Ketones Negative (Negative) 07/10/21 11:21 Urine Blood Negative (Negative) 07/10/21 11:21 Urine Nitrite Negative (Negative) 07/10/21 11:21 Urine Bilirubin Negative (Negative) 07/10/21 11:21 Urine Urobilinogen Negative (Negative) 07/10/21 11:21 Ur Leukocyte Esterase Negative (Negative) 07/10/21 11:21 COVID-19 Eval Order Covid19 at [facility] 07/10/21 11:40 SARS-CoV-2 (PCR) NEGATIVE (Negative) 07/10/21 11:40 Impressions Abdomen/Pelvis CT 07/10/21 11:32 CT abd pelvis wo con CLINICAL HISTORY: nausea, hital hernia known TECHNIQUE: Helical axial images of the abdomen and pelvis were obtained. Automated dose lowering techniques and/or adjustment according to patient size were utilized for this exam. This exam was performed without intravenous contrast. COMPARISON: None available at the time of this dictation. FINDINGS: Lower chest: Atelectasis versus scarring is seen in the bilateral lung bases. Liver: Surgical clip is seen about the gallbladder fossa. There is a subcentimeter hypodensity in the left lobe of the liver which is unchanged from prior exam. Gallbladder and biliary tree: No calcified gallstones. Normal caliber wall. No intra- or extrahepatic biliary ductal dilation. Pancreas: Unremarkable, no focal lesions. Spleen: Unremarkable. Adrenals: Unremarkable. Kidneys and ureters: Bilateral extrarenal pelvis is seen. Bladder: Unremarkable. Reproductive organs: Calcification is noted in the uterus which may represent a calcified fibroid. Bowel: A moderate hiatal hernia is seen. No evidence of bowel obstruction. The appendix is not seen, likely surgically absent. Lymph nodes Retroperitoneal: Unremarkable. Mesenteric: Unremarkable. Pelvic: Unremarkable. Peritoneum: Unremarkable. Vessels: Atherosclerotic calcifications are seen including concentric calcifications in the aorta indicative of significant noncalcified plaque burden. Abdominal wall: Unremarkable. Bones: Degenerative changes in the visualized spine. IMPRESSION: Moderate hiatal hernia. No evidence of bowel obstruction. ACT 112: Negative or not required by law. Electronically signed by: Rj Ness M.D. 07/10/2021 1:[address] 07/10/21 11:32 CT SCAN OF THE BRAIN WITHOUT IV CONTRAST CLINICAL HISTORY: Headache. Change in mental status. COMPARISON STUDY: CT of the brain dated 11/13/2019. TECHNIQUE: Unenhanced axial CT scan of the brain is performed from the vertex to the skull base. A dose lowering technique was utilized adhering to the principles of ALARA. CT DOSE: 1790.71 mGycm FINDINGS: Brain parenchyma: There are age-related involutional changes noting mild subcortical and periventricular microangiopathic change. There is no hemorrhage, mass effect, or evidence of acute territorial ischemia by CT criteria. Cedillo- white matter differentiation is preserved. No extra-axial fluid collection is seen. Ventricles, sulci, cisterns: Prominent secondary to involutional change. Intracranial vasculature: There is atherosclerotic calcification of the cavernous carotid and vertebral arteries. Calvarium: Unremarkable. Sinuses and mastoids: The visualized paranasal sinuses are clear. The mastoid air cells are well pneumatized. Orbits: The bony orbits are grossly intact. There are bilateral ocular lens implants. IMPRESSION: There is no hemorrhage, mass effect, or evidence of acute territorial ischemia by CT criteria. ACT 112: Negative or not required by law. Electronically signed by: Ashvin Thomas M.D. 07/10/2021 12:50 PM Chest X-Ray 07/10/21 11:38 SINGLE VIEW CHEST CLINICAL HISTORY: Nausea. Change in mental status FINDINGS: An AP, portable, upright chest radiograph is compared to study dated 07/04/2021. A 2-lead cardiac pacemaker is unchanged in position. A small hiatal hernia is noted. The cardiomediastinal silhouette is unremarkable noting atherosclerotic calcification of the thoracic aorta. Chronic interstitial thickening and elevation of the right hemidiaphragm is similar to previous. Scarring/atelectasis is seen at the lung bases. No airspace consolidation or large pleural effusion is identified. No pneumothorax is seen. The skeletal structures are osteopenic. The bony thorax is grossly intact. IMPRESSION: No acute cardiopulmonary abnormality. ACT 112: Negative or not required by law. Electronically signed by: Ashvin Thomas M.D. 07/10/2021 12:21 PM Hospital Course (1) Nausea: (2) Hernia, hiatal: (3) Celiac disease: This is a 85-year-old female who has significant past medical history of PAF with history of watchman procedure, TBS status post PPM, HTN, CKD stage III, HLD, hypothyroidism, celiac's disease, CHRISTIANA, spinal stenosis and LUZ MARINA who presents to ED secondary to nausea and weight loss x1 month. She was recently seen in outpatient setting and underwent further lab testing regarding TTG, IgA, vitamin D and folic acid. These were unremarkable. She has known history of hiatal hernia was evaluated for possible surgical intervention. She declined intervention at the time as her symptoms weren't that significant, per her response. She was seen and evaluated in ED on 07/04 And work-up was unremarkable. She was encouraged to take her home Nexium, Zofran, Gas-X and Pepcid. She returned this admission for nausea and unable to tolerate food. A CBC, CMP, UA, CT abdomen pelvis and head CT were unremarkable. CT abdomen pelvis did reveal moderate hiatal hernia. GI was consulted and questioned if gastroparesis may be playing a role. She was given Emend and IVF with improvement. He diet was advanced and she was tolerating food prior to leaving the hospital. She mentioned no BM for the past 3 days, which also may have been contributing to her nausea, and she was given glycerin suppositories to take home and use as needed per her request. At time of discharge she was mentating and ambulating at baseline and tolerating PO. She was feeling better overall and was requesting to go home with outpatient follow-up next week for a delayed gastric emptying study. She was discharged in stable condition with close primary care provider follow-up. Total Time Total Time Spent Total Time Spent (In Minutes): 60 Discharge Plan Discharge Items Patient Disposition: Home - Self-Care Reason For Visit: NAUSEA, HIATAL HERNIA Discharge Diagnosis: Nausea-resolved Hiatal hernia celiac disease Condition on Discharge: Good Activity: Resume your previous activity Non-emergency contact: Primary Care Provider Call non-emergency contact if: you have any medication questions and your symptoms worsen Follow-up/Referrals: Arpit London MD [Primary Care Provider] - (Date & Time 07/17/2021 10:20 AM Provider Arpit London MD Department General Internal Medicine [facility] ) Diet: Gluten Free Addtl Attending Provider Instructions: Please continue all medications per discharge list below. Please follow-up with [facility] to schedule your gastric emptying study next week. It is recommended that you follow-up with your primary care provider within one week of hospital discharge to ensure you are still doing well after returning home. You are being given phenergan as needed for nausea. Please use 1/2 tab or 1 whole tab every 6 hours only as needed for nausea. Please eat small frequent meals to avoid worsening nausea, especially after meals. It was a pleasure taking care of you! Please call if you have any questions or problems. You can reach a [facility] hospitalist on duty at [facility] 24 hours a day by calling [phone]. Take care of yourself. Swathi Newberry, DO [facility] Pending Studies at Discharge: No Stand-Alone Forms: My [facility] Medications and DC Order Prescriptions: New glycerin (adult) Suppository 1 supp ME DAILY PRN (Reason: constipation) Qty: 12 RF: 0 promethazine 25 mg tablet 25 mg PO Q6H PRN (Reason: nausea and vomiting) Qty: 20 RF: 0 Continued furosemide [Lasix] 20 mg Tablet 10 mg PO Q2D RF: 0 losartan [Cozaar] 50 mg Tablet 100 mg PO QAM RF: 0 aspirin [Aspirin Low Dose] 81 mg Tablet,Delayed Release (Dr/Ec) 81 mg PO HS RF: 0 folic acid 1 mg Tablet 1 mg PO QAM RF: 0 cholecalciferol (vitamin D3) [Vitamin D3] 2,000 unit Tablet 2,000 unit PO HS RF: 0 hydralazine 25 mg Tablet 25 mg PO QID RF: 0 magnesium oxide 400 mg magnesium Capsule 400 mg PO QAM RF: 0 potassium chloride [K-Tab] 20 mEq Tablet Extended Release 20 meq PO QAM RF: 0 lorazepam 0.5 mg Tablet 0.5 mg PO HS PRN (Reason: Sleep) RF: 0 esomeprazole magnesium [Nexium] 20 mg Capsule,Delayed Release(Dr/Ec) 20 mg PO QAM RF: 0 levothyroxine [Synthroid] 50 mcg Tablet 50 mcg PO QAM RF: 0 sotalol [Sotalol AF] 80 mg tablet 40 mg PO BID RF: 0 multivitamin Tablet 1 tab PO QAM RF: 0 melatonin 10 mg Tablet 10 mg PO HS PRN (Reason: Sleep) RF: 0 ondansetron HCl [Zofran] 4 mg tablet 4 mg PO Q8H PRN (Reason: Nausea) RF: 0 famotidine [Pepcid AC] 20 mg tablet 20 mg PO HS RF: 0 Discharge Orders: Discharge Order (Routine); Ordered 07/11/21 Ordered By: Swathi Newberry Admission Data Admit Date/Time: 07/10/21 14:01 Attending Provider: Swathi Newberry Admit Provider: Elio Gee Primary Care Provider: Arpit London Other Providers: Mario Felipe ; Linda Hernandez ; Elio Gee
== END 2021-07-11 18:06 | disposition home or self-care (01) ==
LOC: ED 10:54 → 3N 10:54 → SUATTDRO 14:01 → 3N 14:44

== ENCOUNTER 2021-10-30 10:54 | Inpatient (IN) ==
[2021-10-30 11:43] LABS: Basophils # (auto) 0.01 K/uL (0-0.2); Basophils % (auto) 0.1 %; Eosinophils # (auto) 0.12 K/uL (0-0.5); Eosinophils % (auto) 1.6 %; Hematocrit (blood only) 40.5 % (37-47); Hemoglobin 13.1 g/dL (12.0-16.0); Immature Granulocytes # (auto) 0.02 K/uL (0.00-0.02); Immature Granulocytes % (auto) 0.3 %; Lymphocytes # (auto) 1.83 K/uL (1.2-3.4); Lymphocytes % (auto) 24.3 %; Mean Corpuscular Hemoglobin 28.4 pg (25-34); Mean Corpuscular Hgb Conc 32.3 g/dL (32-36); Mean Corpuscular Volume 87.7 fL (80-100); Mean Platelet Volume 9.8 fL (7.4-10.4); Monocytes # (auto) 0.72 K/uL (0.11-0.59); Monocytes % (auto) 9.5 %; Neutrophils # (auto) 4.84 K/uL (1.4-6.5); Neutrophils % (auto) 64.2 %; Platelet Count 334 K/uL (130-400); RDW Coefficient of Variation 14.9 % (11.5-14.5); RDW Standard Deviation 47.9 fL (36.4-46.3); Red Blood Count 4.62 M/uL (4.2-5.4); White Blood Count 7.54 K/uL (4.8-10.8)
[2021-10-30 11:53] LABS: Partial Thromboplastin Time 27.5 Seconds (21.0-31.0); Prothrombin Time 10.1 Seconds (9.0-12.0)
[2021-10-30 12:10] LABS: Alanine Aminotransferase 12 U/L (7-52); Albumin Globulin Ratio 1.4 (0.9-2); Alkaline Phosphatase 86 U/L (34-104); Anion Gap 7 (3-11); Aspartate Aminotransferase 16 U/L (13-39); BUN Creatinine Ratio 15.3 (10-20); Bilirubin,Total 0.5 mg/dl (0.2-1.0); Blood Urea Nitrogen 17 mg/dl (6-23); Calcium 9.6 mg/dl (8.5-10.1); Carbon Dioxide 29 mmol/L (21-32); Chloride 104 mmol/L (98-107); Creatinine Clr Calc Pharmacy 40.6 ml/min; Est GFR (African American) 52.8 ml/min; Est GFR (Non-African American) 45.6 ml/min; Globulin 2.9 gm/dl (2.5-4.0); Glucose 118 mg/dl (70-99(Fasting)); Potassium 4.4 mmol/L (3.5-5.1); Sodium 140 mmol/L (136-145); Total Protein 6.9 gm/dl (6.0-8.3); Troponin I < 0.03 ng/ml (0-0.04)
--- NOTE | 2021-10-30 12:30 | XRay Report ---
XR chest 2V PA/lateral HISTORY: Atypical Chest Pain COMPARISON: Chest 07/10/2021. FINDINGS: No pneumothorax. No pleural effusions. Mild chronic interstitial thickening, unchanged. No new focal lung consolidations to suggest pneumonia. No evidence for pulmonary edema. The heart is nor mal in size. There is a left-sided dual-chamber pacemaker. A septal closure device is noted. IMPRESSION: No significant change compared to the prior study. No acute process. ACT 112: Negative or not required by law. Electronically signed by: Burke Mcfadden M.D. 10/30/2021 12:29 PM
[2021-10-30 12:46] LABS: Magnesium 1.9 mg/dl (1.7-2.4); Phosphorus 3.8 mg/dl (2.5-4.9)
[2021-10-30] MEDS ORDERED: SODIUM CHLORIDE 0.9% 500 ML IV ONE (13:06)
--- NOTE | 2021-10-30 13:10 | Emergency Department Note ---
Impression & Plan Atrial fibrillation with rapid ventricular response, Weakness ED Provider Note Name: AARTI GERBER Age: 85 Sex: F Arrives Via: Walk-In Informant: Patient, daughter ED Provider: Cipriano Knox MD Chief Complaint: Afib Impression: As Per Impressions Above Medical Decision Makin yr old female with a long history of paroxysmal afib that is quite symptomat ic arrives following 5 days of persistent weakness and fatigue. She notes she is in afib though is unsure if she has been in and out of afib throughout the last few days as at times she feels better. No currently anticoagulated as she has watchman device. She has generalized weakness but no focal findings. No chest pain nor acs symptoms currently. EKG with afib RVR. She is on sotalol already after previous amio, cardizem, betablockers. She had a issue with low HRs on betablockers in past. She has no findings of pe/dissection. Given her afib rvr I discussed with [facility] Dr Hassan who advised trial-ing Lopressor IV and hospitalize for further management. Patient and daughter comfortable with this plan [facility] Hold on anticoagulation given she has watchman device. Prior Medical Record and Triage/Nursing Notes reviewed by Me Additional history obtained from chart Differentials:Premature contractions, electrolyte abnormality, cardiac dysrhythmia, thyroid dysfunction, pulmonary embolism, infection, gastrointestinal, as well as other pathologies. Vital Signs: reviewed and remarkable for tachy Interventions: lopressor 5mg iv Labs:Reviewed and remarkable for no significant abnormalities Imaging:See Below EKG:Per My Interpretation: Indication Weakness: Afib RVR 135 bpm, qtc 507. No Ectopy. No Ischemia. Compared to EKG 07/10/21 she is in afib, rather than paced rhythm previously. Cardiac/Tele Monitoring: Cardiac Monitoring: An Order was placed for continuous cardiac monitoring. The monitor shows a rate of 120 with a afib rvr rhythm. Consults:Dr Rohith Dodson Hospitalist. Dr Mo Dodson Cardiology Plan: Disposition:Hospitalization. Condition: Good History of Present Illness:85-year-old pleasant female arrives for evaluation of palpitations. Patient notes she has a long history of A. fib with long history of multiple cardioversions as well as a watchman device placed and she is currently on sotalol for her rate control. Patient states that about a week ago she started feeling weak and tired and worn out. She noted her heart rate was elevated and this is consistent with her previous A. fib episodes. Periodically she would feel little bit better so had made a huge big deal about it. She was seen by her PCP a week ago and was noted to be in A. fib and the plan was to see how she did over the next few days. She states she felt like maybe she went out of A. fib back to her normal sinus rhythm but then flipped back to A. fib again. She is not certain whether she is flipping back and forth. Patient states that currently she just feels wiped out and tired. She has some mild palpitations. She denies any significant shortness of breath, chest pain, syncope, leg swelling, calf pain, abdominal pain, nausea, vomiting, fevers, chills, runny nose, headache, neck pain, urinary/bowel symptoms, other symptoms. She has had no recent bleeding or bruising. She has had no recent head injuries nor trauma. She had no black nor bloody stools. Patient did have surgery at the beginning of September for a hiatal hernia.[place]. She admits she probably has been eating as well since then. Patient took her normal medications this morning but no other new medications. She states her exhaustion is worse with exertion and better with rest. ROS: See above HPI for pertinent positives & negatives. A total of 10 systems reviewed and were otherwise negative. Past Medical History:See Below Past Surgical History:See Below Family History:See Below Social History:See Below Home Medications:See Below Allergies:See Below Vitals:Blood Pressure: 149/74, Pulse 130, RR 18, T 36.8C, O2 97% on RA Physical Exam: GENERAL: Patient is tired/dehydrated appearing and in mild distress. EYES: No scleral icterus, unremarkable pupils. ENT: Mucous membranes dry, no nasal congestion. NECK: No masses appreciated, nomeningismus, trachea is midline. RESPIRATORY: No dyspnea. Clear to auscultation and equal bilaterally. No wheeze, no rhonchi. CARDIOVASCULAR: Tachy.No murmurs, rubs, gallops appreciated. GASTROINTESTINAL: Abdomen soft, non-tender, no peritonitis.Bowel sounds positive.No masses appreciated. BACK: No midline tenderness, no CVA tenderness EXTREMITIES: Normal motion all extremities, no cyanosis, no edema. NEUROLOGIC: Alert and oriented, no acute motor or sensory deficits, no focal weakness, cranial nerves grossly intact. SKIN: No rash, no jaundice, no diaphoresis. 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 Sleep apnea BORDERLINE-DOES NOT USE MACHINE Urinary bladder incontinence Surgical History (Updated 10/30/21 @ 17:21 by Anjali Velasco PA-C) History of adenoidectomy History of appendectomy History of bilateral tubal ligation History of cardiac cath 3 YRS AGO NO STENTS-"CLEAN VESSELS" History of cataract extraction History of repair of hiatal hernia History of tonsillectomy Surgery, elective COCCYXGECTOMY Family History Mother Family history of diabetes mellitus Hypertension Macular degeneration Father Heart disease Social History Smoking Status: Never smoker Tobacco Type: Cigarettes packs per day: 1; Years Smoked: 35; Second Hand Exposure: No; Hx Alcohol Use: No Hx Substance Use: No Preferred Language: Surinamese Communication Ability: Effective Packer Dried Beef Required: No Beliefs That Will Affect Care: None marital status: / Current Living Situation: Alone Feels Safe at Home: Yes Assistive Devices: None Allergies Allergies Allergy/AdvReac Type Severity Reaction Status Date / Time wheat Allergy Intermediate CELIAC Verified 10/30/21 14:29 DISEASE Iodinated Contrast Media AdvReac Intermediate "Tingly Unverified 10/30/21 14:29 all over" Zlkdbet-EUB-GcR Reductase AdvReac Intermediate MUSCLE AND Verified 10/30/21 14:29 Inhibitor BACK ACHES [Zofujyh-Szo-Les Reductase Inhibitor] diltiazem [From Cardizem] AdvReac Unknown Verified 10/30/21 14:29 epinephrine AdvReac Unknown "WEIRD Verified 10/30/21 14:29 FEELING" lidocaine AdvReac Unknown "FEELS Verified 10/30/21 14:29 WEIRD" Home Meds Home Medications Medication Instructions Recorded Confirmed hydralazine 25 mg tablet 25 mg PO QID 01/18/19 10/30/21 levothyroxine 50 mcg tablet 50 mcg PO QAM 01/18/19 10/30/21 (Synthroid) lorazepam 0.5 mg tablet 0.25 mg PO HS PRN 01/18/19 10/30/21 magnesium oxide 400 mg PO QAM 01/18/19 10/30/21 potassium chloride 20 mEq 20 meq PO QAM 01/18/19 10/30/21 tablet,extended release (K-Tab) aspirin 81 mg tablet,delayed 81 mg PO HS 10/30/19 10/30/21 release (Aspirin Low Dose) cholecalciferol (vitamin D3) 50 2,000 unit PO HS 10/30/19 10/30/21 mcg (2,000 unit) tablet (Vitamin D3) folic acid 1 mg tablet 1 mg PO QAM 10/30/19 10/30/21 furosemide 20 mg tablet (Lasix) 10 mg PO DAILY 10/30/19 10/30/21 losartan 50 mg tablet (Cozaar) 100 mg PO QAM 10/30/19 10/30/21 sotalol 80 mg tablet (Sotalol AF) 40 mg PO BID 11/13/19 10/30/21 multivitamin 1 tab PO QAM 07/04/20 10/30/21 buspirone 5 mg tablet 5 mg PO BID 10/30/21 10/30/21 ondansetron HCl 4 mg tablet 4 mg PO Q8H PRN 10/30/21 10/30/21 prochlorperazine maleate 10 mg 10 mg PO Q4H PRN 10/30/21 10/30/21 tablet promethazine 25 mg tablet 12.5 mg PO Q6H PRN 10/30/21 10/30/21 Results & Data (ED) Vital Signs Vital Signs - 24 hr 10/30/21 11:18 10/30/21 13:17 10/30/21 14:14 Temperature 36.8 C Temperature Source Temporal Artery Scan Pulse Rate 130 H 119 H Pulse Rate [Apical] 134 H Pulse Rhythm [Apical] Irregular Respiratory Rate 18 18 Blood Pressure 149/74 H 141/82 H Blood Pressure [Right Arm] 136/95 Blood Pressure Mean 99 Blood Pressure Mean [Right Arm] 108 Pulse Oximetry 97 97 Oxygen Delivery Method Room Air Room Air Sepsis Recent Fever Within 48 Hours No Sepsis New/Unexplained Change in Mental Status No Sepsis Action Taken by Nursing No Action Required 10/30/21 15:00 Temperature Temperature Source Pulse Rate Pulse Rate [Apical] 124 H Pulse Rhythm [Apical] Respiratory Rate 22 Blood Pressure Blood Pressure [Right Arm] 150/103 H Blood Pressure Mean Blood Pressure Mean [Right Arm] 118 Pulse Oximetry 97 Oxygen Delivery Method Room Air Sepsis Recent Fever Within 48 Hours Sepsis New/Unexplained Change in Mental Status Sepsis Action Taken by Nursing Laboratory Data Result diagrams: 10/30/21 11:25 10/30/21 11:25 Lab Results 10/30/21 10/30/21 10/30/21 Range/Units 11:23 11:23 11:25 WBC 7.54 (4.8-10.8) K/uL RBC 4.62 (4.2-5.4) M/uL Hgb 13.1 (12.0-16.0) g/dL Hct 40.5 (37-47) % MCV 87.7 (80-100) fL MCH 28.4 (25-34) pg MCHC 32.3 (32-36) g/dL RDW Std Deviation 47.9 H (36.4-46.3) fL RDW Coeff of Lupis 14.9 H (11.5-14.5) % Plt Count 334 (130-400) K/uL MPV 9.8 (7.4-10.4) fL Immature Gran % (Auto) 0.3 % Neut % (Auto) 64.2 % Lymph % (Auto) 24.3 % Whitley % (Auto) 9.5 % Eos % (Auto) 1.6 % Baso % (Auto) 0.1 % Neut # (Auto) 4.84 (1.4-6.5) K/uL Lymph # (Auto) 1.83 (1.2-3.4) K/uL Whitley # (Auto) 0.72 H (0.11-0.59) K/uL Eos # (Auto) 0.12 (0-0.5) K/uL Baso # (Auto) 0.01 (0-0.2) K/uL Immature Gran # (Auto) 0.02 (0.00-0.02) K/uL PT (9.0-12.0) Seconds INR (0.9-1.1) APTT (21.0-31.0) Seconds PTT Ratio Sodium (136-145) mmol/L Potassium (3.5-5.1) mmol/L Chloride (98-107) mmol/L Carbon Dioxide (21-32) mmol/L Anion Gap (3-11) BUN (6-23) mg/dl Creatinine (0.6-1.2) mg/dl Est Cr Clr Drug Dosing ml/min Est GFR ( Amer) ml/min Est GFR (Non-Af Amer) ml/min BUN/Creatinine Ratio (10-20) Glucose (70-99(Fasting)) mg/dl Calcium (8.5-10.1) mg/dl Phosphorus 3.8 (2.5-4.9) mg/dl Magnesium 1.9 (1.7-2.4) mg/dl Total Bilirubin (0.2-1.0) mg/dl AST (13-39) U/L ALT (7-52) U/L Alkaline Phosphatase (34-104) U/L Troponin I (0-0.04) ng/ml Total Protein (6.0-8.3) gm/dl Albumin (3.4-5.0) gm/dl Globulin (2.5-4.0) gm/dl Albumin/Globulin Ratio (0.9-2) TSH 3.128 (0.300-4.500) uIu/ml SARS-CoV-2, RNA, NAAT (NEGATIVE) 10/30/21 10/30/21 10/30/21 Range/Units 11:25 11:25 14:55 WBC (4.8-10.8) K/uL RBC (4.2-5.4) M/uL Hgb (12.0-16.0) g/dL Hct (37-47) % MCV (80-100) fL MCH (25-34) pg MCHC (32-36) g/dL RDW Std Deviation (36.4-46.3) fL RDW Coeff of Lupis (11.5-14.5) % Plt Count (130-400) K/uL MPV (7.4-10.4) fL Immature Gran % (Auto) % Neut % (Auto) % Lymph % (Auto) % Whitley % (Auto) % Eos % (Auto) % Baso % (Auto) % Neut # (Auto) (1.4-6.5) K/uL Lymph # (Auto) (1.2-3.4) K/uL Whitley # (Auto) (0.11-0.59) K/uL Eos # (Auto) (0-0.5) K/uL Baso # (Auto) (0-0.2) K/uL Immature Gran # (Auto) (0.00-0.02) K/uL PT 10.1 (9.0-12.0) Seconds INR 1.0 (0.9-1.1) APTT 27.5 (21.0-31.0) Seconds PTT Ratio 1.0 Sodium 140 (136-145) mmol/L Potassium 4.4 (3.5-5.1) mmol/L Chloride 104 (98-107) mmol/L Carbon Dioxide 29 (21-32) mmol/L Anion Gap 7 (3-11) BUN 17 (6-23) mg/dl Creatinine 1.11 (0.6-1.2) mg/dl Est Cr Clr Drug Dosing 40.6 ml/min Est GFR ( Amer) 52.8 ml/min Est GFR (Non-Af Amer) 45.6 ml/min BUN/Creatinine Ratio 15.3 (10-20) Glucose 118 H (70-99(Fasting)) mg/dl Calcium 9.6 (8.5-10.1) mg/dl Phosphorus (2.5-4.9) mg/dl Magnesium (1.7-2.4) mg/dl Total Bilirubin 0.5 (0.2-1.0) mg/dl AST 16 (13-39) U/L ALT 12 (7-52) U/L Alkaline Phosphatase 86 (34-104) U/L Troponin I < 0.03 (0-0.04) ng/ml Total Protein 6.9 (6.0-8.3) gm/dl Albumin 4.0 (3.4-5.0) gm/dl Globulin 2.9 (2.5-4.0) gm/dl Albumin/Globulin Ratio 1.4 (0.9-2) TSH (0.300-4.500) uIu/ml SARS-CoV-2, RNA, NAAT NEGATIVE (NEGATIVE) Administered Medications Discontinued Medications Sodium Chloride (Nss) 500 mls @ 999 mls/hr IV .Q31M ONE Stop: 10/30/21 13:36 Last Infusion: 10/30/21 14:14 Dose: 0 mls/hr Documented by: [id number] Admin: 10/30/21 13:30 Dose: 999 mls/hr Documented by: [id number] Metoprolol Tartrate (Metoprolol Tartrate 1 Mg/Ml Vial) 5 mg IV NOW STA Stop: 10/30/21 13:45 Last Admin: 10/30/21 14:14 Dose: 5 mg Documented by: [id number] Imaging Data Radiologist's Impression: Chest X-Ray 10/30/21 11:23 XR chest 2V PA/lateral HISTORY: Atypical Chest Pain COMPARISON: Chest 07/10/2021. FINDINGS: No pneumothorax. No pleural effusions. Mild chronic interstitial thickening, unchanged. No new focal lung consolidations to suggest pneumonia. No evidence for pulmonary edema. The heart is normal in size. There is a left-sided dual-chamber pacemaker. A septal closure device is noted. IMPRESSION: No significant change compared to the prior study. No acute process. ACT 112: Negative or not required by law. Electronically signed by: Burke Mcfadden M.D. 10/30/2021 12:29 PM Discharge Plan Visit Data Chief Complaint: Cardiac Assessment Stated Complaint: FATIGUE, SOB, HISTORY OF AFIB ED Provider: Cipriano Knox Discharge Problem: Atrial fibrillation with rapid ventricular response, Weakness Forms Stand Alone Forms: My [facility] Prescriptions Prescriptions: No Action furosemide [Lasix] 20 mg Tablet 10 mg PO DAILY RF: 0 losartan [Cozaar] 50 mg Tablet 100 mg PO QAM RF: 0 aspirin [Aspirin Low Dose] 81 mg Tablet,Delayed Release (Dr/Ec) 81 mg PO HS RF: 0 folic acid 1 mg Tablet 1 mg PO QAM RF: 0 cholecalciferol (vitamin D3) [Vitamin D3] 2,000 unit Tablet 2,000 unit PO HS RF: 0 hydralazine 25 mg Tablet 25 mg PO QID RF: 0 magnesium oxide 400 mg magnesium Capsule 400 mg PO QAM RF: 0 potassium chloride [K-Tab] 20 mEq Tablet Extended Release 20 meq PO QAM RF: 0 lorazepam 0.5 mg Tablet 0.25 mg PO HS PRN (Reason: Sleep) RF: 0 levothyroxine [Synthroid] 50 mcg Tablet 50 mcg PO QAM RF: 0 sotalol [Sotalol AF] 80 mg tablet 40 mg PO BID RF: 0 multivitamin Tablet 1 tab PO QAM RF: 0 ondansetron HCl 4 mg tablet 4 mg PO Q8H PRN (Reason: Nausea) RF: 0 buspirone 5 mg tablet 5 mg PO BID RF: 0 prochlorperazine maleate 10 mg tablet 10 mg PO Q4H PRN (Reason: Nausea) RF: 0 promethazine 25 mg tablet 12.5 mg PO Q6H PRN (Reason: nausea and vomiting) RF: 0 Referrals Referrals: Arpit London MD [Primary Care Provider] -
[2021-10-30] MEDS ORDERED: METOPROLOL TARTRATE 1 MG/ML VIAL IV STA ×2 (13:44→20:08)
--- NOTE | 2021-10-30 17:13 | History & Physical Report ---
Date of Service October 30, 2021 Assessment & Plan (1) Paroxysmal atrial fibrillation with RVR: Plan: Discussed case with cardiology on-call, Dr. Hassan. - Will plan to attempt rate control overnight with Lopressor 5 mg IV Q4 hrs - pt seems to have tolerated first dose in the ED without significant side effect. - Hold Sotalol for now as potential transition back to amiodarone. Pt had acute CHF at higher doses of Sotalol in the past (80 mg BID). - Monitor in PCU. (2) GERD (gastroesophageal reflux disease): Plan: Has been off PPI since recent hiatal hernia surgery (3) Celiac disease: Plan: Continue gluten-free diet (4) Hypertension: (5) Hyperlipidemia: (6) Hypothyroidism: Plan: TSH on 10/27/21 was 3.58 - continue levothyroxine (7) Anxiety: (8) CKD (chronic kidney disease) stage 3, GFR 30-59 ml/min: (9) Iron deficiency anemia: Plan: Iron saturation was decreased on labs earlier this week - PCP following to determine if another dose of IV iron is indicated Plan: Note: Pt prefers to be called "Makenzie Lopez" Continue other home medications as appropriate. Pt seen and reviewed with collaborating physician, Dr. Newberry. Plan of care discussed and as outlined above. Code Status: Full code DVT Prophylaxis: SCDs, pt has been intolerant of anticoagulation previously so is not anticoagulated for atrial fibrillation, s/p Watchman procedure Kai Velasco PA-C History of Present Illness Chief Complaint: Fatigue Primary Care Provider: Arpit London MD This is an 85 y/o female with a PMH of PAF with history of watchman procedure, SSS s/p PPM, HTN, CKD stage III, HLD, hypothyroidism, celiac disease, CHRISTIANA, spinal stenosis and LUZ MARINA who presented to the ED today with three weeks of worsening fatigue and malaise, especially over the past week. Pt has an e xtensive history of paroxysmal atrial fibrillation for which she has been on multiple medications and undergone cardioversion previously. Previously had trouble tolerating amiodarone due to GI problems, metoprolol also caused nausea and upset stomach. She was initially on Sotalol 80 mg BID but went into acute CHF so this was lowered to 40 mg BID. Pt was intolerant of anticoagulation due to recurrent GI bleeding. On 09/26/21, [facility] She reports that her appetite has been decreased since surgery with decreased oral intake. The nausea that she had pre-operatively has not improved since the procedure. She has multiple anti-emetics at home but has not taken any recently. On 10/15/20, she saw her fur weigher, Dr. Camarillo, for an acute visit due to increased fatigue for the past 1-2 weeks. She was concerned that she may be back in atrial fibrillation as this was similar to how she felt previously. There were technical issues interrogating her pacemaker remotely prior to the appt. When it was interrogated on site, she was found to be in NSR. On 10/27/20, she saw Pipe Hayward PA-C at her PCP office due to worsening symptoms. EKG done that day showed atrial fibrillation with RVR at 120-150. It was thought that the sotalol would result in a conversion back to sinus rhythm. Pt thinks that she may have briefly converted back but isn't sure. Today, she felt worse so she called her granddaughter to bring her to the ED for evaluation. Her main complaint is severe fatigue, mild dyspnea on exertion, and a sense that something is "not right" in general She describes a "fullness feeling" in her chest but denies chest pressure, chest pain, palpitations or sensation of heart racing. She has received one dose of Lopressor in the ED thus far with transient improvement of her HR from 130s to 110s but is now back in the 120s-130s when she was seen. No significant change in her symptoms since arrival. Allergies Allergy/AdvReac Type Severity Reaction Status Date / Time wheat Allergy Intermediate CELIAC Verified 10/30/21 14:29 DISEASE Iodinated Contrast Media AdvReac Intermediate "Tingly Unverified 10/30/21 14:29 all over" Uoyevnf-EYH-TtJ Reductase AdvReac Intermediate MUSCLE AND Verified 10/30/21 14:29 Inhibitor BACK ACHES [Jtsevll-Avr-Szv Reductase Inhibitor] diltiazem [From Cardizem] AdvReac Unknown Verified 10/30/21 14:29 epinephrine AdvReac Unknown "WEIRD Verified 10/30/21 14:29 FEELING" lidocaine AdvReac Unknown "FEELS Verified 10/30/21 14:29 WEIRD" Home Medications Medication Instructions Recorded Confirmed Type hydralazine 25 mg tablet 25 mg PO QID 01/18/19 10/30/21 History levothyroxine 50 mcg tablet 50 mcg PO QAM 01/18/19 10/30/21 History (Synthroid) lorazepam 0.5 mg tablet 0.25 mg PO HS PRN 01/18/19 10/30/21 History magnesium oxide 400 mg PO QAM 01/18/19 10/30/21 History potassium chloride 20 mEq 20 meq PO QAM 01/18/19 10/30/21 History tablet,extended release (K-Tab) aspirin 81 mg tablet,delayed 81 mg PO HS 10/30/19 10/30/21 History release (Aspirin Low Dose) cholecalciferol (vitamin D3) 50 2,000 unit PO HS 10/30/19 10/30/21 History mcg (2,000 unit) tablet (Vitamin D3) folic acid 1 mg tablet 1 mg PO QAM 10/30/19 10/30/21 History furosemide 20 mg tablet (Lasix) 10 mg PO DAILY 10/30/19 10/30/21 History losartan 50 mg tablet (Cozaar) 100 mg PO QAM 10/30/19 10/30/21 History sotalol 80 mg tablet (Sotalol AF) 40 mg PO BID 11/13/19 10/30/21 History multivitamin 1 tab PO QAM 07/04/20 10/30/21 History buspirone 5 mg tablet 5 mg PO BID 10/30/21 10/30/21 History ondansetron HCl 4 mg tablet 4 mg PO Q8H PRN 10/30/21 10/30/21 History prochlorperazine maleate 10 mg 10 mg PO Q4H PRN 10/30/21 10/30/21 History tablet promethazine 25 mg tablet 12.5 mg PO Q6H PRN 10/30/21 10/30/21 History Past Med/Surg History Medical History (Updated 10/30/21 @ 17:50 by Cipriano Knox MD) Anxiety Atrial fibrillation Celiac disease Chronic back pain SPINAL STENOSIS Congestive heart failure HX 1 1/2 YR AGO GERD (gastroesophageal reflux disease) Hiatal hernia History of cardioversion X 4-5 Hyperlipidemia Hypertension Hypothyroidism Iron deficiency anemia Migraine HX Nausea and vomiting after administration of anesthetic agent Osteoarthritis 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 Sleep apnea BORDERLINE-DOES NOT USE MACHINE Urinary bladder incontinence Surgical History (Updated 10/30/21 @ 17:21 by Anjali Velasco PA-C) History of adenoidectomy History of appendectomy History of bilateral tubal ligation History of cardiac cath 3 YRS AGO NO STENTS-"CLEAN VESSELS" History of cataract extraction History of repair of hiatal hernia History of tonsillectomy Surgery, elective COCCYXGECTOMY Family History Mother Family history of diabetes mellitus Hypertension Macular degeneration Father Heart disease Social History Smoking Status: Never smoker Tobacco Type: Cigarettes packs per day: 1; Years Smoked: 35; Second Hand Exposure: No; Hx Alcohol Use: No Hx Substance Use: No Preferred Language: Samoan Communication Ability: Effective Promotional Demonstrator Required: No Beliefs That Will Affect Care: None marital status: / Current Living Situation: Alone Feels Safe at Home: Yes Assistive Devices: None Review of Systems Review of Systems: All systems reviewed & are unremarkable except as noted in HPI & below Constitutional: + fatigue, + weakness and + anorexia; no fever and no chills Eyes: no diplopia Ear, Nose, Mouth, Throat: + nasal discharge; no nasal congestion and no sore throat Respiratory: no cough, no chest congestion, no pain on inspiration and no wheezing Cardiovascular: as per Subjective / HPI; no syncope and no edema Gastrointestinal: + nausea and + constipation (ongoing issue past few months); no abdominal pain, no vomiting, no diarrhea/loose stools and no blood in stools Genitourinary: no dysuria, no urinary frequency and no hematuria Musculoskeletal: no back pain and no neck pain Integumentary: no rash and no yellowing of the skin Neurologic: no localized weakness, no paresthesia, no seizure-like activity and no headache(s) Psychiatric: + depression (loss of her twin sister in 2020) and + anxiety Physical Exam Constitutional: well developed and well nourished; no acute distress Eyes: + anicteric sclerae Neck: trachea midline Respiratory: no respiratory distress and no labored breathing Auscultation: lungs clear to auscultation bilaterally; no rales, no rhonchi and no wheezes Cardiovascular: Rate/Rhythm: + tachycardic and + irregularly irregular Vessels: dorsalis pedis pulses present and radial pulses present Extremities: no calf tenderness and no pedal edema Gastrointestinal (Abdomen): Inspection/Auscultation: normal bowel sounds; abdomen not distended Percussion/Palpation: abdomen soft; abdomen nontender Musculoskeletal: Head/Neck/Chest: normocephalic, head atraumatic and neck supple Skin: no jaundice Neurologic: moves all extremities; no focal motor deficits Psychiatric: A+Ox3, euthymic affect Results & Data Results & Data ([facility]) Vital Signs (Past 12 Hours) Vital Signs Temp Pulse Pulse Resp BP BP Pulse Ox 10/30/21 15:00 124 H 22 150/103 H 97 10/30/21 14:14 119 H 141/82 H 10/30/21 13:17 134 H 18 136/95 97 10/30/21 11:18 36.8 C 130 H 18 149/74 H 97 Laboratory Results Laboratory Results - last 24 hr 10/30/21 10/30/21 10/30/21 11:23 11:23 11:25 WBC 7.54 RBC 4.62 Hgb 13.1 Hct 40.5 MCV 87.7 MCH 28.4 MCHC 32.3 RDW Std Deviation 47.9 H RDW Coeff of Lupis 14.9 H Plt Count 334 MPV 9.8 Immature Gran % (Auto) 0.3 Neut % (Auto) 64.2 Lymph % (Auto) 24.3 [place] % (Auto) 9.5 Eos % (Auto) 1.6 Baso % (Auto) 0.1 Neut # (Auto) 4.84 Lymph # (Auto) 1.83 [place] # (Auto) 0.72 H Eos # (Auto) 0.12 Baso # (Auto) 0.01 Immature Gran # (Auto) 0.02 PT INR APTT PTT Ratio Sodium Potassium Chloride Carbon Dioxide Anion Gap BUN Creatinine Est Cr Clr Drug Dosing Est GFR ( Amer) Est GFR (Non-Af Amer) BUN/Creatinine Ratio Glucose Calcium Phosphorus 3.8 Magnesium 1.9 Total Bilirubin AST ALT Alkaline Phosphatase Troponin I Total Protein Albumin Globulin Albumin/Globulin Ratio TSH 3.128 SARS-CoV-2, RNA, NAAT 10/30/21 10/30/21 10/30/21 11:25 11:25 14:55 WBC RBC Hgb Hct MCV MCH MCHC RDW Std Deviation RDW Coeff of Lupis Plt Count MPV Immature Gran % (Auto) Neut % (Auto) Lymph % (Auto) [place] % (Auto) Eos % (Auto) Baso % (Auto) Neut # (Auto) Lymph # (Auto) [place] # (Auto) Eos # (Auto) Baso # (Auto) Immature Gran # (Auto) PT 10.1 INR 1.0 APTT 27.5 PTT Ratio 1.0 Sodium 140 Potassium 4.4 Chloride 104 Carbon Dioxide 29 Anion Gap 7 BUN 17 Creatinine 1.11 Est Cr Clr Drug Dosing 40.6 Est GFR ( Amer) 52.8 Est GFR (Non-Af Amer) 45.6 BUN/Creatinine Ratio 15.3 Glucose 118 H Calcium 9.6 Phosphorus Magnesium Total Bilirubin 0.5 AST 16 ALT 12 Alkaline Phosphatase 86 Troponin I < 0.03 Total Protein 6.9 Albumin 4.0 Globulin 2.9 Albumin/Globulin Ratio 1.4 TSH SARS-CoV-2, RNA, NAAT NEGATIVE Diagnostic Findings Chest X-ray 10/30/21 - IMPRESSION: No significant change compared to the prior study. No acute process. Medications Administered Discontinued Medications Sodium Chloride (Nss) 500 mls @ 999 mls/hr IV .Q31M ONE Stop: 10/30/21 13:36 Last Infusion: 10/30/21 14:14 Dose: 0 mls/hr Documented by: [id number] Admin: 10/30/21 13:30 Dose: 999 mls/hr Documented by: [id number] Metoprolol Tartrate (Metoprolol Tartrate 1 Mg/Ml Vial) 5 mg IV NOW STA Stop: 10/30/21 13:45 Last Admin: 10/30/21 14:14 Dose: 5 mg Documented by: [id number] Code Status & VTE Plan VTE Prophylaxis Plan VTE Prophylaxis will be ordered: Yes Supervising Physician Co-Signing Physician Notes I have seen and examined the patient and have discussed the case with the provider above. I agree with the assessment and plan as stated. 85 yo F with known PAF on sotalol who presents with worsening symptoms of fatigue and malaise. She is still feeling "like I ran a race." Denies any SOB or chest pain or pressure. Reports being nauseous and has chronic nausea. Reports feeling a good result from her recent surgery in September. She is still tachycardic in the 130s consistently this afternoon despite one dose of Lopressor IV. Current vital at 1999 are 160/130 with a HR 130-140. Lopressor 5mg IV was given. Repeat BP after 10 minutes was 165/135 and HR was trending down to the 110s. Will allow 8pm meds to be given including oral antihyperten sives and cont to monitor BP and HR closely overnight. Compazine dose ordered for nausea. Physical exam reveals a euvolemic female in NAD who is fatigued. Cardiac exam reveals irregularly irregular rate and rhythm with rate elevated, S1/2 heard without murmur and no peripheral edema. Lungs are CTAB. Agree with current plan for rate control efforts overnight and subsequent discussion of oil heaterman management strategies with Cardiology in am. Cont Holding Sotalol. DO Rohith (1) GERD (gastroesophageal reflux disease) Esophagitis presence: esophagitis presence not specified Qualified Code(s): K21.9 - Gastro-esophageal reflux disease without esophagitis (2) Hypertension Hypertension type: essential hypertension Qualified Code(s): I10 - Essential (primary) hypertension
[2021-10-30] MEDS ORDERED: NITROGLYCERIN SL 0.4 MG/TAB TAB SL PRN (19:03)
[2021-10-30] MEDS ORDERED: ACETAMINOPHEN 325 MG TAB PO PRN (19:03)
[2021-10-30] MEDS ORDERED: POLYETHYLENE (MIRALAX) 17 GM PACK PO PRN (19:03)
[2021-10-30] MEDS: METOPROLOL TARTRATE 1 MG/ML VIAL IV SCH (20:14)
[2021-10-30] MEDS ORDERED: PROCHLORPERAZINE MALEATE 10 MG TAB PO STA (20:36)
[2021-10-30] MEDS: busPIRone 5 MG TAB PO SCH (20:55)
[2021-10-30] MEDS ORDERED: SOTALOL HCL 80 MG TAB PO STA (21:16)
[2021-10-30] MEDS: hydrALAZINE HCL 25 MG TAB PO SCH (21:36)
[2021-10-30] MEDS: ASPIRIN 81 MG ECTAB PO SCH (21:37)
[2021-10-30] MEDS: CHOLECALCIFEROL 1,000 UNITS 25 MCG TAB PO SCH (21:37)
[2021-10-31] MEDS: METOPROLOL TARTRATE 1 MG/ML VIAL IV SCH ×6 (00:29→20:46)
[2021-10-31] MEDS: LEVOTHYROXINE SODIUM 50 MCG TABLET PO SCH (05:45)
[2021-10-31 06:56] LABS: Hematocrit (blood only) 36.3 % (37-47); Hemoglobin 11.9 g/dL (12.0-16.0); Mean Corpuscular Hemoglobin 28.5 pg (25-34); Mean Corpuscular Hgb Conc 32.8 g/dL (32-36); Mean Corpuscular Volume 86.8 fL (80-100); Mean Platelet Volume 9.4 fL (7.4-10.4); Platelet Count 240 K/uL (130-400); RDW Coefficient of Variation 14.9 % (11.5-14.5); RDW Standard Deviation 47.1 fL (36.4-46.3); Red Blood Count 4.18 M/uL (4.2-5.4)
[2021-10-31 07:37] LABS: BUN Creatinine Ratio 15.1 (10-20); Calcium 8.6 mg/dl (8.5-10.1); Creatinine Clr Calc Pharmacy 48.7 ml/min; Est GFR (African American) 65.4 ml/min; Est GFR (Non-African American) 56.4 ml/min; Magnesium 1.7 mg/dl (1.7-2.4); Phosphorus 3.6 mg/dl (2.5-4.9)
[2021-10-31] MEDS: hydrALAZINE HCL 25 MG TAB PO SCH ×4 (08:57→20:42)
[2021-10-31] MEDS ORDERED: SOTALOL HCL 80 MG TAB PO SCH (09:00)
[2021-10-31] MEDS: POTASSIUM CHLORIDE CRTAB 20 MEQ TABCR PO SCH (09:00)
[2021-10-31] MEDS: MAGNESIUM OXIDE 400 MG TAB PO SCH (09:01)
[2021-10-31] MEDS: busPIRone 5 MG TAB PO SCH ×2 (09:01→20:43)
--- NOTE | 2021-10-31 09:54 | Cardiology Consultation ---
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 I will discussed the case with the EP service. For now, in order to improve her heart rates I am going to give her an extra dose of 40 mg of sotalol. Continue with the IV metoprolol as well. History of Present Illness Attending Physician: Hao Ames DO History of Present Illness This is an 85-year-old female who is well-known to our service with a history of paroxysmal atrial fibrillation and multiple drug allergies and intolerances. She also had a history of GI bleeding and as a result she had a watchman put in at [facility]. She also had recent surgery for a large hiatal hernia about a month ago. According to the patient, it has been several years since she has had an episode of atrial fibrillation. She was seen by her primary care physician who sent her in due to atrial fibrillation and RVR. She is on sotalol 40 mg twice daily which is all that she states she can tolerate. She denies shortness of breath. She is not having active chest pain. Allergies Allergy/AdvReac Type Severity Reaction Status Date / Time wheat Allergy Intermediate CELIAC Verified 10/30/21 14:29 DISEASE Iodinated Contrast Media AdvReac Intermediate "Tingly Unverified 10/30/21 14:29 all over" Uhmcmqs-DHW-JiK Reductase AdvReac Intermediate MUSCLE AND Verified 10/30/21 14:29 Inhibitor BACK ACHES [Vzkaesk-Ffc-Bxa Reductase Inhibitor] diltiazem [From Cardizem] AdvReac Unknown Verified 10/30/21 14:29 epinephrine AdvReac Unknown "WEIRD Verified 10/30/21 14:29 FEELING" lidocaine AdvReac Unknown "FEELS Verified 10/30/21 14:29 WEIRD" Home Medications Medication Instructions Recorded Confirmed Type hydralazine 25 mg tablet 25 mg PO QID 01/18/19 10/30/21 History levothyroxine 50 mcg tablet 50 mcg PO QAM 01/18/19 10/30/21 History (Synthroid) lorazepam 0.5 mg tablet 0.25 mg PO HS PRN 01/18/19 10/30/21 History magnesium oxide 400 mg PO QAM 01/18/19 10/30/21 History potassium chloride 20 mEq 20 meq PO QAM 01/18/19 10/30/21 History tablet,extended release (K-Tab) aspirin 81 mg tablet,delayed 81 mg PO HS 10/30/19 10/30/21 History release (Aspirin Low Dose) cholecalciferol (vitamin D3) 50 2,000 unit PO HS 10/30/19 10/30/21 History mcg (2,000 unit) tablet (Vitamin D3) folic acid 1 mg tablet 1 mg PO QAM 10/30/19 10/30/21 History furosemide 20 mg tablet (Lasix) 10 mg PO DAILY 10/30/19 10/30/21 History losartan 50 mg tablet (Cozaar) 100 mg PO QAM 10/30/19 10/30/21 History sotalol 80 mg tablet (Sotalol AF) 40 mg PO BID 11/13/19 10/30/21 History multivitamin 1 tab PO QAM 07/04/20 10/30/21 History buspirone 5 mg tablet 5 mg PO BID 10/30/21 10/30/21 History ondansetron HCl 4 mg tablet 4 mg PO Q8H PRN 10/30/21 10/30/21 History prochlorperazine maleate 10 mg 10 mg PO Q4H PRN 10/30/21 10/30/21 History tablet promethazine 25 mg tablet 12.5 mg PO Q6H PRN 10/30/21 10/30/21 History Patient History Medical History Anxiety Atrial fibrillation Celiac disease Chronic back pain SPINAL STENOSIS Congestive heart failure HX 1 1/2 YR AGO GERD (gastroesophageal reflux disease) Hiatal hernia History of cardioversion X 4-5 Hyperlipidemia Hypertension Hypothyroidism Iron deficiency anemia Migraine HX Nausea and vomiting after administration of anesthetic agent Osteoarthritis 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 Sleep apnea BORDERLINE-DOES NOT USE MACHINE Urinary bladder incontinence Surgical History History of adenoidectomy History of appendectomy History of bilateral tubal ligation History of cardiac cath 3 YRS AGO NO STENTS-"CLEAN VESSELS" History of cataract extraction History of repair of hiatal hernia History of tonsillectomy Surgery, elective COCCYXGECTOMY Family History Mother Family history of diabetes mellitus Hypertension Macular degeneration Father Heart disease Social History Smoking Status: Former smoker Tobacco Type: Cigarettes packs per day: 1; Years Smoked: 35; Second Hand Exposure: No; Hx Alcohol Use: No Hx Substance Use: No Preferred Language: Botswanan Communication Ability: Effective Dining Room Hostess Required: No Beliefs That Will Affect Care: None marital status: / Current Living Situation: Alone Feels Safe at Home: Yes Assistive Devices: None Review of Systems Review of Systems: Review of Systems: See HPI for pertinent positives. All other 10 point review of systems are negative. Physical Exam Physical Exam: General: no acute distress and stated age Head: normocephalic, no masses, lesions, tenderness or abnormalities Eyes: conjunctiva are pink and non-injected, sclera clear Neck: supple, no adenopathy, no bruits, normal jugular venous pulse, no hepatojugular reflux Chest: normal shape and normal respiratory effort Lungs: clear to auscultation and percussion Cardiac Exam: - irregular rate & rhythm, no murmurs gallops or rubs - normal S1, normal S2 Pulses: 2(+) throughout Abdomen: abdomen soft, non-tender, no abnormal masses and no hepatosplenomegaly Musculoskeletal: no gait disturbance, no joint inflammation, no deforming arthritis Extremities: no edema and no cyanosis Neuro: grossly normal exam Results & Data ([facility]) Vital Signs (Past 12 Hours) Vital Signs Temp Pulse Pulse Resp BP BP BP 10/31/21 08:22 127 H 120/68 10/31/21 08:16 36.4 C L 131 H 16 120/68 10/31/21 03:40 116 H 146/72 H 10/31/21 03:35 36.4 C L 115 H 18 146/72 H 10/31/21 00:36 36.4 C L 121 H 20 119/73 10/31/21 00:29 121 H 119/73 10/31/21 00:27 36.4 C L 127 H 20 119/73 Pulse Ox 10/31/21 08:22 10/31/21 08:16 95 10/31/21 03:40 10/31/21 03:35 95 10/31/21 00:36 94 10/31/21 00:29 10/31/21 00:27 94 Laboratory Results Laboratory Results - last 24 hr 10/30/21 10/30/21 10/30/21 11:23 11:23 11:25 WBC 7.54 RBC 4.62 Hgb 13.1 Hct 40.5 MCV 87.7 MCH 28.4 MCHC 32.3 RDW Std Deviation 47.9 H RDW Coeff of Lupis 14.9 H Plt Count 334 MPV 9.8 Immature Gran % (Auto) 0.3 Neut % (Auto) 64.2 Lymph % (Auto) 24.3 [place] % (Auto) 9.5 Eos % (Auto) 1.6 Baso % (Auto) 0.1 Neut # (Auto) 4.84 Lymph # (Auto) 1.83 [place] # (Auto) 0.72 H Eos # (Auto) 0.12 Baso # (Auto) 0.01 Immature Gran # (Auto) 0.02 PT INR APTT PTT Ratio Sodium Potassium Chloride Carbon Dioxide Anion Gap BUN Creatinine Est Cr Clr Drug Dosing Est GFR ( Amer) Est GFR (Non-Af Amer) BUN/Creatinine Ratio Glucose Calcium Phosphorus 3.8 Magnesium 1.9 Total Bilirubin AST ALT Alkaline Phosphatase Troponin I Total Protein Albumin Globulin Albumin/Globulin Ratio TSH 3.128 SARS-CoV-2, RNA, NAAT 10/30/21 10/30/21 10/30/21 11:25 11:25 14:55 WBC RBC Hgb Hct MCV MCH MCHC RDW Std Deviation RDW Coeff of Lupis Plt Count MPV Immature Gran % (Auto) Neut % (Auto) Lymph % (Auto) [place] % (Auto) Eos % (Auto) Baso % (Auto) Neut # (Auto) Lymph # (Auto) [place] # (Auto) Eos # (Auto) Baso # (Auto) Immature Gran # (Auto) PT 10.1 INR 1.0 APTT 27.5 PTT Ratio 1.0 Sodium 140 Potassium 4.4 Chloride 104 Carbon Dioxide 29 Anion Gap 7 BUN 17 Creatinine 1.11 Est Cr Clr Drug Dosing 40.6 Est GFR ( Amer) 52.8 Est GFR (Non-Af Amer) 45.6 BUN/Creatinine Ratio 15.3 Glucose 118 H Calcium 9.6 Phosphorus Magnesium Total Bilirubin 0.5 AST 16 ALT 12 Alkaline Phosphatase 86 Troponin I < 0.03 Total Protein 6.9 Albumin 4.0 Globulin 2.9 Albumin/Globulin Ratio 1.4 TSH SARS-CoV-2, RNA, NAAT NEGATIVE 10/31/21 10/31/21 06:45 06:45 WBC 6.90 RBC 4.18 L Hgb 11.9 L Hct 36.3 L MCV 86.8 MCH 28.5 MCHC 32.8 RDW Std Deviation 47.1 H RDW Coeff of Lupis 14.9 H Plt Count 240 MPV 9.4 Immature Gran % (Auto) Neut % (Auto) Lymph % (Auto) [place] % (Auto) Eos % (Auto) Baso % (Auto) Neut # (Auto) Lymph # (Auto) [place] # (Auto) Eos # (Auto) Baso # (Auto) Immature Gran # (Auto) PT INR APTT PTT Ratio Sodium 136 Potassium 4.0 Chloride 105 Carbon Dioxide 24 Anion Gap 7 BUN 14 Creatinine 0.93 Est Cr Clr Drug Dosing 48.7 Est GFR ( Amer) 65.4 Est GFR (Non-Af Amer) 56.4 BUN/Creatinine Ratio 15.1 Glucose 90 Calcium 8.6 Phosphorus 3.6 Magnesium 1.7 Total Bilirubin AST ALT Alkaline Phosphatase Troponin I Total Protein Albumin Globulin Albumin/Globulin Ratio TSH SARS-CoV-2, RNA, NAAT Medications Administered Current Inpatient Medications Acetaminophen (Acetaminophen 325 Mg Tab) 650 mg PO Q4H PRN PRN Reason: Pain or Fever Stop: 11/29/21 19:02 Aspirin (Aspirin 81 Mg Ectab) 81 mg PO HS [facility] Stop: 11/29/21 20:59 Last Admin: 10/30/21 21:37 Dose: 81 mg Documented by: Buspirone HCl (Buspirone 5 Mg Tab) 5 mg PO BID [facility] Stop: 11/29/21 20:59 Last Admin: 10/31/21 09:01 Dose: 5 mg Documented by: Folic Acid (Folic Acid 1 Mg Tab) 1 mg PO QAM [facility] Stop: 11/30/21 08:59 Hydralazine HCl (Hydralazine Hcl 25 Mg Tab) 25 mg PO QID [facility] Stop: 11/29/21 20:59 Last Admin: 10/31/21 08:57 Dose: 25 mg Documented by: Levothyroxine Sodium (Levothyroxine Sodium 50 Mcg Tablet) 50 mcg PO DAILYBB [facility] Stop: 11/30/21 06:29 Last Admin: 10/31/21 05:45 Dose: 50 mcg Documented by: Lorazepam (Lorazepam 0.5 Mg Tab) 0.25 mg PO HS PRN PRN Reason: Sleep Stop: 11/29/21 19:31 Magnesium Oxide (Magnesium Oxide 400 Mg Tab) 400 mg PO QAM [facility] Stop: 11/30/21 08:59 Last Admin: 10/31/21 09:01 Dose: 400 mg Documented by: Metoprolol Tartrate (Metoprolol Tartrate 1 Mg/Ml Vial) 5 mg IV Q4 [facility] Stop: 11/29/21 19:59 Last Admin: 10/31/21 08:22 Dose: 5 mg Documented by: Nitroglycerin (Nitroglycerin Sl 0.4 Mg/Tab Tab) 0.4 mg SL UD PRN PRN Reason: Chest Pain Stop: 11/29/21 19:02 Polyethylene Glycol (Polyethylene (Miralax) 17 Gm Pack) 17 gm PO DAILY PRN PRN Reason: Constipation Stop: 11/29/21 19:02 Potassium Chloride (Potassium Chloride Crtab 20 Meq Tabcr) 20 meq PO [facility] Stop: 11/30/21 08:59 Last Admin: 10/31/21 09:00 Dose: 20 meq Documented by: Prochlorperazine (Prochlorperazine Maleate 10 Mg Tab) 10 mg PO Q4H PRN PRN Reason: Nausea Stop: 11/29/21 19:31 Sotalol HCl (Sotalol Hcl 80 Mg Tab) 40 mg PO BID [facility] Stop: 11/30/21 08:59 Last Admin: 10/31/21 09:02 Dose: 40 mg Documented by: Vitamin D (Cholecalciferol 1,000 Units 25 Mcg Tab) 2,000 units PO HS [facility] Stop: 11/29/21 20:59 Last Admin: 10/30/21 21:37 Dose: 1,000 units Documented by:
[2021-10-31] MEDS ORDERED: SOTALOL HCL 80 MG TAB PO ONE (10:30)
[2021-10-31] MEDS: FOLIC ACID 1 MG TAB PO SCH (10:34)
--- NOTE | 2021-10-31 15:24 | Hospitalist Progress Note ---
Date of Service October 31, 2021 Assessment & Plan (1) Paroxysmal atrial fibrillation with RVR: Plan: - Will plan to attempt rate control overnight with Lopressor 5 mg IV Q4 hrs - pt seems to have tolerated first dose in the ED without significant side effect. - Hold Sotalol for now as potential transition back to amiodarone. Pt had acute CHF at higher doses of Sotalol in the past (80 mg BID). - Monitor in PCU. (2) GERD (gastroesophageal reflux disease): Plan: Has been off PPI since recent hiatal hernia surgery (3) Celiac disease: Plan: Continue gluten-free diet (4) Hypertension: (5) Hyperlipidemia: (6) Hypothyroidism: Plan: TSH on 10/27/21 was 3.58 - continue levothyroxine (7) Anxiety: (8) CKD (chronic kidney disease) stage 3, GFR 30-59 ml/min: (9) Iron deficiency anemia: Plan: Iron saturation was decreased on labs earlier this week - PCP following to determine if another dose of IV iron is indicated Plan: Note: Pt prefers to be called "Makenzie Lopez" Continue other home medications as appropriate. Code Status: Full code DVT Prophylaxis: SCDs, pt has been intolerant of anticoagulation previously so is not anticoagulated for atrial fibrillation, s/p Watchman procedure ROS-No Headache, No Visual Changes, No Nausea, No Vomiting, No Fever, No Chills, No Neck Pain or Stiffness, No Chest Pain, No Palpitations, No SOB, No STANTON, No Cough, No Sputum, No Wheezing, No Abdominal Pain, No Diarrhea, No Hematemesis, No Hemoptysis, No Unexpected Weight Loss, No Flank pain, No Melena, No Hematochezia, No Frequency, No Urgency, No Burning, No Hematuria, No Rashes, No Diaphoresis. Appetite is Normal Physical Exam Gen-AAO x 3, NAD, Afebrile Head-NCAT, EOMI, PERRLA, Anicteric Sclera, No Posterior Pharyngeal Erythema Neck-Supple, No JVD, No Thyromegaly, No Masses, No LAD, No Bruits Lungs-Clear to Auscultation Bilaterally, No Rales, No Rhonchi, No Wheezing, No Crepitus Chest-Irreg/Irreg/Tachy, No S4, +S1, +S2, No S3, No Murmurs, No Rubs, No Gallops , + Ectopy Abdomen-Soft, Bowel Sounds Present, Non Tender, Non Distended, No Hepatomegaly, No Splenomegaly, No Palpable Masses, No Rebound, No Rigidity, No Guarding Musculoskeletal-Full Range of Motion Bilaterally, No CVAT Extremities-No Cyanosis, No Clubbing, No Edema Nuero-Cranial Nerves II-XII grossly intact, Motor WNL, DTRs WNL, Strength WNL, Non Focal Psych-Normal Mood Admission and Anticipated Discharge Date Admission Date: October 30, 2021 Subjective Patient seen, says she feels about the same, Said cardio was just here. Results & Data Results & Data ([facility]) Vital Signs (Past 12 Hours) Vital Signs Temp Pulse Pulse Resp BP BP BP 10/31/21 12:18 134 H 115/80 10/31/21 11:36 36.5 C 128 H 20 105/74 10/31/21 08:22 127 H 120/68 10/31/21 08:16 36.4 C L 131 H 16 120/68 10/31/21 03:40 116 H 146/72 H 10/31/21 03:35 36.4 C L 115 H 18 146/72 H Pulse Ox 10/31/21 12:18 10/31/21 11:36 96 10/31/21 08:22 10/31/21 08:16 95 10/31/21 03:40 10/31/21 03:35 95 Laboratory Results reviewed (1) GERD (gastroesophageal reflux disease) Esophagitis presence: esophagitis presence not specified Qualified Code(s): K21.9 - Gastro-esophageal reflux disease without esophagitis (2) Hypertension Hypertension type: essential hypertension Qualified Code(s): I10 - Essential (primary) hypertension
[2021-10-31] MEDS: LORazepam 0.5 MG TAB PO PRN (20:39)
[2021-10-31] MEDS: ASPIRIN 81 MG ECTAB PO SCH (20:41)
[2021-10-31] MEDS: CHOLECALCIFEROL 1,000 UNITS 25 MCG TAB PO SCH (20:43)
[2021-10-31] MEDS: SOTALOL HCL 80 MG TAB PO SCH (20:44)
[2021-11-01] MEDS: METOPROLOL TARTRATE 1 MG/ML VIAL IV SCH ×3 (00:22→08:13)
--- NOTE | 2021-11-01 06:04 | Electrocardiogram Report ---
Test Reason : Blood Pressure : / mmHG Vent. Rate : 135 BPM Atrial Rate : 129 BPM P-R Int : 000 ms QRS Dur : 096 ms QT Int : 338 ms P-R-T Axes : 000 -27 098 degrees QTc Int : 507 ms Atrial fibrillation with rapid ventricular response Septal infarct (cited on or before 04-JUL-2020) Abnormal ECG When compared with ECG of 10-JUL-2021 11:41, Atrial fibrillation has replaced Electronic atrial pacemaker Vent. rate has increased BY 73 BPM Nonspecific T wave abnormality now evident in Lateral leads Confirmed by Antonio Walker ([id number]) on 11/01/2021 6:04:27 AM Referred By: Confirmed By:Antonio Walker
[2021-11-01] MEDS: LEVOTHYROXINE SODIUM 50 MCG TABLET PO SCH (06:39)
--- NOTE | 2021-11-01 06:52 | Electrocardiogram Report ---
Test Reason : Blood Pressure : / mmHG Vent. Rate : 128 BPM Atrial Rate : 072 BPM P-R Int : 000 ms QRS Dur : 096 ms QT Int : 344 ms P-R-T Axes : 000 -29 047 degrees QTc Int : 502 ms Atrial fibrillation with rapid ventricular response Incomplete right bundle branch block Septal infarct Abnormal ECG When compared with ECG of 30-OCT-2021 11:32, No significant change Confirmed by Antonio Walker ([id number]) on 11/01/2021 6:51:40 AM Referred By: REFERRED SELF Confirmed By:Antonio Walker
[2021-11-01] MEDS: hydrALAZINE HCL 25 MG TAB PO SCH ×4 (08:11→21:07)
[2021-11-01] MEDS: busPIRone 5 MG TAB PO SCH ×2 (08:11→21:07)
[2021-11-01] MEDS: MAGNESIUM OXIDE 400 MG TAB PO SCH (08:12)
[2021-11-01] MEDS: POTASSIUM CHLORIDE CRTAB 20 MEQ TABCR PO SCH (08:12)
[2021-11-01] MEDS: SOTALOL HCL 80 MG TAB PO SCH (08:12)
[2021-11-01] MEDS: FOLIC ACID 1 MG TAB PO SCH (08:12)
--- NOTE | 2021-11-01 08:34 | Hospitalist Progress Note ---
Date of Service November 01, 2021 Assessment & Plan (1) Paroxysmal atrial fibrillation with RVR: Plan: - Rate control with Sotalol in the past (80 mg BID). - Monitor in PCU. (2) GERD (gastroesophageal reflux disease): Plan: Has been off PPI since recent hiatal hernia surgery (3) Celiac disease: Plan: Continue gluten-free diet (4) Hypertension: (5) Hyperlipidemia: (6) Hypothyroidism: Plan: TSH on 10/27/21 was 3.58 - continue levothyroxine (7) Anxiety: (8) CKD (chronic kidney disease) stage 3, GFR 30-59 ml/min: (9) Iron deficiency anemia: Plan: Iron saturation was decreased on labs earlier this week - PCP following to determine if another dose of IV iron is indicated Plan: Note: Pt prefers to be called "Makenzie Lopez" Continue other home medications as appropriate. Code Status: Full code DVT Prophylaxis: SCDs, pt has been intolerant of anticoagulation previously so is not anticoagulated for atrial fibrillation, s/p Watchman procedure ROS-No Headache, No Visual Changes, No Nausea, No Vomiting, No Fever, No Chills, No Neck Pain or Stiffness, No Chest Pain, No Palpitations, No SOB, No STANTON, No Cough, No Sputum, No Wheezing, No Abdominal Pain, No Diarrhea, No Hematemesis, No Hemoptysis, No Unexpected Weight Loss, No Flank pain, No Melena, No Hematochezia, No Frequency, No Urgency, No Burning, No Hematuria, No Rashes, No Diaphoresis. Appetite is Normal, +Fatigue Physical Exam Gen-AAO x 3, NAD, Afebrile Head-NCAT, EOMI, PERRLA, Anicteric Sclera, No Posterior Pharyngeal Erythema Neck-Supple, No JVD, No Thyromegaly, No Masses, No LAD, No Bruits Lungs-Clear to Auscultation Bilaterally, No Rales, No Rhonchi, No Wheezing, No Crepitus Chest-Irreg/Irreg/Tachy, No S4, +S1, +S2, No S3, No Murmurs, No Rubs, No Gallops, + Ectopy Abdomen-Soft, Bowel Sounds Present, Non Tender, Non Distended, No Hepatomegaly, No Splenomegaly, No Palpable Masses, No Rebound, No Rigidity, No Guarding Musculoskeletal-Full Range of Motion Bilaterally, No CVAT Extremities-No Cyanosis, No Clubbing, No Edema Nuero-Cranial Nerves II-XII grossly intact, Motor WNL, DTRs WNL, Strength WNL, Non Focal Psych-Normal Mood Admission and Anticipated Discharge Date Admission Date: October 30, 2021 Subjective Patient seen, says she feels about the same, Wants to be cardioverted Results & Data Results & Data ([facility]) Vital Signs (Past 12 Hours) Vital Signs Temp Pulse Pulse Resp BP BP Pulse Ox 11/01/21 08:07 36.6 C 111 H 16 137/87 95 11/01/21 06:42 36.5 C 122 H 16 140/85 96 11/01/21 04:05 120 H 11/01/21 00:22 108 H 101/66 11/01/21 00:00 36.4 C L 122 H 16 109/65 95 10/31/21 22:50 36.6 C 102 H 17 116/69 97 10/31/21 20:46 96 H 101/66 (1) GERD (gastroesophageal reflux disease) Esophagitis presence: esophagitis presence not specified Qualified Code(s): K21.9 - Gastro-esophageal reflux disease without esophagitis (2) Hypertension Hypertension type: essential hypertension Qualified Code(s): I10 - Essential (primary) hypertension
[2021-11-01] MEDS: PROCHLORPERAZINE MALEATE 10 MG TAB PO PRN (08:59)
--- NOTE | 2021-11-01 11:15 | Cardiology Progress Note ---
Date of Service November 01, 2021 Assessment & Plan (1) Atrial fibrillation with rapid ventricular response: Plan: 85-year-old female presents with recurrent symptomatic atrial fibrillation with rapid ventricular response. Of note, patient is status post recent repair of a large hiatal hernia within the [facility] system, 09/26/2021, and as anticipated for patient who is 85 years old with her degree of underlying comorbidities, she has had a slow recovery from this surgery. Patient has had multiple recent cardiology follow-up visits, with debilitating belching and nauseousness noted before the hernia surgery, and when I had recently seen her within the last month, she noted generalized fatigue, and had been in sinus rhythm at that time, with device interrogation revealing most recent atrial fibrillation episode dating back to August of this year. The patient established with our practice in 2019 having previously followed in [place]. She has undergone multiple direct-current cardioversion procedures in the past. She has not tolerated beta-kim therapy in the past due to bradycardia, but as noted, she now has a pacemaker. She did not tolerate sotalol 80 mg twice a day in the past having been admitted with fluid retention, and that is why she is maintained on 40 twice daily. In October,, she was treated with IV amiodarone with subsequent spontaneous conversion to sinus rhythm but this was subsequently discontinued due to side effect of nauseousness. In March,, dual-chamber [employer]tronic permanent pacemaker placed for further heart rate control, followed by direct-current cardioversion performed without anticoagulation with patient having had previous percutaneous watchman procedure. As previously noted, patient underwent Watchman procedure in [place]2018, due to chronic anemia, while on anticoagulation with Coumadin without any tonya episodes of gastrointestinal bleeding. Patient with multiple medication intolerances as noted in the past including metoprolol, oral diltiazem (2020), amiodarone (2019), sotalol 80 mg twice daily. Recently she has felt poorly, but is felt poorly in both sinus rhythm and in atrial fibrillation. Her current symptoms however certainly are consistent with atrial fibrillation. I believe rhythm control strategy is still in the patient's best interest, and at the time of her most recent echocardiogram in June, as an outpatient, only mild left atrial dilatation noted, with preserved ejection fraction. Pacemaker now in place since 2019 to provide heart rate support. PLAN Discontinue IV metoprolol. Discontinue oral sotalol 80 mg twice daily. Start metoprolol tartrate 25 mg p.o. 3 times daily. We will await washout of sotalol for 48-72 hrs, while monitoring patient's QT interval, and will likely place her back on amiodarone which was previously discontinued due to side effect of nauseousness, however she has had nausea even off of amiodarone. I think a focused trial of amiodarone which she may take with meals is reasonable and our best option with regards to rhythm control strategy. Direct-current cardioversion may be necessary, however due to potential for superimposed thrombus on top of the watchman device, recommend at least short- term anticoagulation with heparin and would perform cardioversion with MARYURI guidance for stratification. Future considerations include AV junction ablation and just allowing the patient to be in atrial fibrillation, with heart rate support provided by pacemaker, however proceed with the above less invasive approach for now. Admission and Anticipated Discharge Date Admission Date: October 30, 2021 Violetta Simms is an 85-year-old female seen in cardiology follow-up for the evaluation of symptomatic atrial fibrillation. Patient well-known to the undersigned as I follow her as an outpatient. She has had several recent acute for since for generalized fatigue. She presented via the emergency room for complaints of worsening generalized fatigue, and feeling like her heart was "running a race ". She was found to be in recurrent atrial fibrillation with rapid ventricular response. Thus far her sotalol dose was increased from 40 mg twice daily to 80 mg twice daily, and she has been receiving IV metoprolol. Her ventricular rates have improved to some degree, with atrial fibrillation at around 110 bpm at rest, however tachycardic up to the 130s with minimal exertion. Review of Systems Constitutional: Generalized fatigue, noted at the time of recent outpatient cardiology visit while in sinus rhythm as well as present. Gastrointestinal: Nausea Physical Exam Physical Exam: Temp Pulse Resp BP Pulse Ox 36.5 C 120 H 18 98/62 L 96 11/01/21 10:48 11/01/21 10:48 11/01/21 10:48 11/01/21 10:48 11/01/21 10:48 Constitutional: WD/WN, vitals as above Respiratory: normal respiratory effort, lungs clear to auscultation Cardiovascular: Rate/Rhythm: + tachycardic and + irregularly irregular Heart Sounds: no murmur Gastrointestinal (Abdomen): normal bowel sounds, soft, nontender, no hepatosplenomegaly Results & Data ([facility]) Vital Signs (Past 12 Hours) Vital Signs Temp Pulse Pulse Resp BP BP Pulse Ox 11/01/21 10:48 36.5 C 120 H 18 98/62 L 96 11/01/21 09:29 128 H 11/01/21 08:07 36.6 C 111 H 16 137/87 95 11/01/21 06:42 36.5 C 122 H 16 140/85 96 11/01/21 04:05 120 H 11/01/21 00:22 108 H 101/66 11/01/21 00:00 36.4 C L 122 H 16 109/65 95 Laboratory Results Intake and Output 10/31/21 11/01/21 11/01/21 22:59 06:59 14:59 Intake Total 0 / 0 Output Total 0 / 0 Balance 0 / 0 Intake: Oral 0 / 0 Output: # Bowel Movements 0 / 0 Other: # Unmeasured Voids 1
[2021-11-01] MEDS ORDERED: Heparin IV Adult Wt-Based Standard *NO* Bolus Protocol IV SCH (11:30)
[2021-11-01] MEDS ORDERED: HEPARIN 25000 UNIT/500 ML D5W IV ONE (11:46)
[2021-11-01] MEDS: HEPARIN SODIUM/DEXTROSE 25,000 UNITS/500 ML BAG IV SCH (12:10)
[2021-11-01] MEDS: METOPROLOL TARTRATE 25 MG TAB PO SCH ×2 (13:58→21:09)
[2021-11-01] MEDS ORDERED: STAT IV Infusion **Titration per Protocol STA (17:07)
[2021-11-01] MEDS ORDERED: dilTIAZem HCL 125 MG in DEXTROSE 5% 100 ML IV SCH (17:30)
[2021-11-01] MEDS: LORazepam 0.5 MG TAB PO PRN (17:59)
[2021-11-01 18:27] LABS: Partial Thromboplastin Ratio 3.3
[2021-11-01] MEDS: ASPIRIN 81 MG ECTAB PO SCH (21:07)
[2021-11-01] MEDS: CHOLECALCIFEROL 1,000 UNITS 25 MCG TAB PO SCH (21:08)
[2021-11-02 01:02] LABS: Partial Thromboplastin Ratio 2.6
[2021-11-02 01:16] LABS: Partial Thromboplastin Time 69.5 Seconds (21.0-31.0)
[2021-11-02] MEDS: LEVOTHYROXINE SODIUM 50 MCG TABLET PO SCH (06:16)
[2021-11-02 08:03] LABS: Hematocrit (blood only) 36.4 % (37-47); Hemoglobin 11.8 g/dL (12.0-16.0); Mean Corpuscular Hemoglobin 28.4 pg (25-34); Mean Corpuscular Hgb Conc 32.4 g/dL (32-36); Mean Corpuscular Volume 87.5 fL (80-100); Mean Platelet Volume 9.9 fL (7.4-10.4); Platelet Count 257 K/uL (130-400); RDW Coefficient of Variation 14.8 % (11.5-14.5); RDW Standard Deviation 47.2 fL (36.4-46.3); Red Blood Count 4.16 M/uL (4.2-5.4); White Blood Count 6.95 K/uL (4.8-10.8)
[2021-11-02] MEDS: METOPROLOL TARTRATE 25 MG TAB PO SCH (08:03)
[2021-11-02] MEDS: hydrALAZINE HCL 25 MG TAB PO SCH ×5 (08:04→20:02)
[2021-11-02] MEDS: FOLIC ACID 1 MG TAB PO SCH (08:05)
[2021-11-02] MEDS: MAGNESIUM OXIDE 400 MG TAB PO SCH (08:05)
[2021-11-02] MEDS: busPIRone 5 MG TAB PO SCH ×2 (08:06→20:02)
[2021-11-02] MEDS: POTASSIUM CHLORIDE CRTAB 20 MEQ TABCR PO SCH (08:23)
[2021-11-02 08:26] LABS: Partial Thromboplastin Ratio 3.4
[2021-11-02 08:30] LABS: BUN Creatinine Ratio 11.8 (10-20); Calcium 8.6 mg/dl (8.5-10.1); Creatinine Clr Calc Pharmacy 48.1 ml/min; Est GFR (African American) 65.4 ml/min; Est GFR (Non-African American) 56.4 ml/min; Potassium 3.7 mmol/L (3.5-5.1)
[2021-11-02 08:32] LABS: Partial Thromboplastin Time 89.7 Seconds (21.0-31.0)
--- NOTE | 2021-11-02 09:52 | Hospitalist Progress Note ---
Date of Service November 02, 2021 Assessment & Plan (1) Paroxysmal atrial fibrillation with RVR: Plan: - Rate control with Amio, Sotolol washing out over next 48H in the past. IV Heparin - Monitor in PCU. (2) GERD (gastroesophageal reflux disease): Plan: Has been off PPI since recent hiatal hernia surgery (3) Celiac disease: Plan: Continue gluten-free diet (4) Hypertension: (5) Hyperlipidemia: (6) Hypothyroidism: Plan: TSH on 10/27/21 was 3.58 - continue levothyroxine (7) Anxiety: (8) CKD (chronic kidney disease) stage 3, GFR 30-59 ml/min: (9) Iron deficiency anemia: Plan: Iron saturation was decreased on labs earlier this week - PCP following to determine if another dose of IV iron is indicated Plan: Note: Pt prefers to be called "Makenzie Lopez" Continue other home medications as appropriate. Code Status: Full code DVT Prophylaxis: SCDs, pt has been intolerant of anticoagulation previously so is not anticoagulated for atrial fibrillation, s/p Watchman procedure ROS-No Headache, No Visual Changes, No Nausea, No Vomiting, No Fever, No Chills, No Neck Pain or Stiffness, No Chest Pain, No Palpitations, No SOB, No STANTON, No Cough, No Sputum, No Wheezing, No Abdominal Pain, No Diarrhea, No Hematemesis, No Hemoptysis, No Unexpected Weight Loss, No Flank pain, No Melena, No Hemat ochezia, No Frequency, No Urgency, No Burning, No Hematuria, No Rashes, No Diaphoresis. Appetite is Normal, +Fatigue Physical Exam Gen-AAO x 3, NAD, Afebrile Head-NCAT, EOMI, PERRLA, Anicteric Sclera, No Posterior Pharyngeal Erythema Neck-Supple, No JVD, No Thyromegaly, No Masses, No LAD, No Bruits Lungs-Clear to Auscultation Bilaterally, No Rales, No Rhonchi, No Wheezing, No Crepitus Chest-Irreg/Irreg/Tachy, No S4, +S1, +S2, No S3, No Murmurs, No Rubs, No Gallops, + Ectopy Abdomen-Soft, Bowel Sounds Present, Non Tender, Non Distended, No Hepatomegaly, No Splenomegaly, No Palpable Masses, No Rebound, No Rigidity, No Guarding Musculoskeletal-Full Range of Motion Bilaterally, No CVAT Extremities-No Cyanosis, No Clubbing, No Edema Nuero-Cranial Nerves II-XII grossly intact, Motor WNL, DTRs WNL, Strength WNL, Non Focal Psych-Normal Mood Admission and Anticipated Discharge Date Admission Date: October 30, 2021 Subjective Meds adjusted by Dr Camarillo. Doing much better Results & Data Results & Data ([facility]) Vital Signs (Past 12 Hours) Vital Signs Temp Pulse Resp BP BP Pulse Ox 11/02/21 07:07 93 H 18 124/86 96 11/02/21 03:19 36.6 C 93 H 17 126/82 95 11/01/21 23:07 36.3 C L 98 H 16 96/59 L 96 (1) GERD (gastroesophageal reflux disease) Esophagitis presence: esophagitis presence not specified Qualified Code(s): K21.9 - Gastro-esophageal reflux disease without esophagitis (2) Hypertension Hypertension type: essential hypertension Qualified Code(s): I10 - Essential (primary) hypertension
[2021-11-02] MEDS ORDERED: METOPROLOL TARTRATE 25 MG TAB PO ONE (12:44)
--- NOTE | 2021-11-02 12:45 | Cardiology Progress Note ---
Date of Service November 02, 2021 Assessment & Plan (1) Atrial fibrillation with rapid ventricular response: Plan: * Sotalol discontinued * Titrate metoprolol tartrate to 50 mg twice daily * Continue diltiazem infusion * Continue heparin, in anticipation of possible MARYURI guided DCCV. * Start amiodarone after sotalol washout. Admission and Anticipated Discharge Date Admission Date: October 30, 2021 Subjective Makenzie Simsm is seen in cardiology follow-up of symptomatic atrial fibrillation. Patient remained on diltiazem infusion, 5 mg/h overnight last night, along with oral metoprolol as initiated yesterday, and heparin infusion. She remains in atrial fibrillation, ventricular rates improved down to the 80 to 90 bpm range at rest. Review of Systems Review of Systems: All systems reviewed & are unremarkable except as noted in HPI & below Physical Exam Physical Exam: Temp Pulse Resp BP Pulse Ox 36.4 C L 96 H 20 120/83 98 11/02/21 11:54 11/02/21 11:54 11/02/21 11:54 11/02/21 11:54 11/02/21 11:54 Constitutional: WD/WN, vitals as above Respiratory: normal respiratory effort, lungs clear to auscultation Cardiovascular: Rate/Rhythm: + irregularly irregular Heart Sounds: no murmur Extremities: no edema Neurologic: PERRL, EOMI, accommodation nl, no face palsy, no dysarthria Results & Data ([facility]) Vital Signs (Past 12 Hours) Vital Signs Temp Pulse Resp BP BP Pulse Ox 11/02/21 11:54 36.4 C L 96 H 20 120/83 98 11/02/21 07:07 93 H 18 124/86 96 11/02/21 03:19 36.6 C 93 H 17 126/82 95 Laboratory Results Coagulation 11/01/21 11/02/21 11/02/21 Range/Units 17:50 00:25 07:17 APTT 87.0 H* 69.5 H* 89.7 H* (21.0-31.0) Seconds CBC 11/02/21 Range/Units 07:17 WBC 6.95 (4.8-10.8) K/uL RBC 4.16 L (4.2-5.4) M/uL Hgb 11.8 L (12.0-16.0) g/dL Hct 36.4 L (37-47) % Plt Count 257 (130-400) K/uL Comprehensive Metabolic Panel 11/02/21 Range/Units 07:17 Sodium 136 (136-145) mmol/L Potassium 3.7 (3.5-5.1) mmol/L Chloride 103 (98-107) mmol/L Carbon Dioxide 28 (21-32) mmol/L BUN 11 (6-23) mg/dl Creatinine 0.93 (0.6-1.2) mg/dl Glucose 101 H (70-99(Fasting)) mg/dl Calcium 8.6 (8.5-10.1) mg/dl Intake and Output 11/01/21 11/02/21 11/02/21 22:59 06:59 14:59 Intake Total 481.25 / 1172.950 226.867 / 1172.950 219.883 / 219.883 Balance 481.25 / 1171.950 226.867 / 1171.950 219.883 / 219.883 Intake: IV 161.25 / 352.950 126.867 / 352.950 219.883 / 219.883 Heparin Sodium/Dextrose 25,000 161.25 / 288.117 126.867 / 288.117 155.05 / 155.05 units In 500 ml @ 1,050 UNITS/ HR 21 mls/hr IV .[id number] [facility] Rx #:[id number] dilTIAZem HCL 125 mg In 64.833 / 64.833 Dextrose 5% 100 ml @ 5 MG/HR 5 mls/hr IV .Q24H [facility]IL[facility] Rx#: [id number] Oral 320 / 820 100 / 820 Other: # Unmeasured Voids 1 1 Weight 83.6 kg Weight Measurement Method Standing Scale
--- NOTE | 2021-11-02 13:01 | Communication Note ---
Date of Service: November 02, 2021 With the patient's permission, I called her daughter, Ju, and provided and update with regards to the findings thus far and plan.
[2021-11-02] MEDS: HEPARIN SODIUM/DEXTROSE 25,000 UNITS/500 ML BAG IV SCH (13:38)
[2021-11-02 15:44] LABS: Partial Thromboplastin Ratio 2.2
[2021-11-02 16:02] LABS: Partial Thromboplastin Time 57.3 Seconds (21.0-31.0)
--- NOTE | 2021-11-02 16:48 | Communication Note ---
Date of Service: November 02, 2021 Lost one of her IV site. Will stop IV diltiazem. Continue IV heparin. Continue oral metoprolol.
--- NOTE | 2021-11-02 18:21 | Electrocardiogram Report ---
Test Reason : Blood Pressure : / mmHG Vent. Rate : 120 BPM Atrial Rate : 120 BPM P-R Int : 000 ms QRS Dur : 088 ms QT Int : 354 ms P-R-T Axes : 000 -19 035 degrees QTc Int : 500 ms Atrial fibrillation with rapid ventricular response Septal infarct , age undetermined Abnormal ECG When compared with ECG of 31-OCT-2021 09:24, (unconfirmed) Septal infarct is now Present Confirmed by Kb Perez ([id number]) on 11/02/2021 6:21:35 PM Referred By: REFERRED SELF Confirmed By:Kb Perez
[2021-11-02] MEDS: METOPROLOL TARTRATE 50 MG TAB PO SCH (20:02)
[2021-11-02] MEDS: CHOLECALCIFEROL 1,000 UNITS 25 MCG TAB PO SCH (20:02)
[2021-11-02] MEDS: ASPIRIN 81 MG ECTAB PO SCH (20:03)
[2021-11-03] MEDS: LEVOTHYROXINE SODIUM 50 MCG TABLET PO SCH (05:57)
[2021-11-03 06:41] LABS: Hematocrit (blood only) 36.7 % (37-47); Mean Corpuscular Hemoglobin 28.2 pg (25-34); Mean Corpuscular Hgb Conc 32.7 g/dL (32-36); Mean Corpuscular Volume 86.4 fL (80-100); Platelet Count 270 K/uL (130-400); RDW Standard Deviation 47.2 fL (36.4-46.3); Red Blood Count 4.25 M/uL (4.2-5.4)
[2021-11-03 06:59] LABS: Albumin Globulin Ratio 1.4 (0.9-2); Albumin Level 3.3 gm/dl (3.4-5.0); BUN Creatinine Ratio 8.7 (10-20); Bilirubin,Total 0.4 mg/dl (0.2-1.0); Calcium 8.7 mg/dl (8.5-10.1); Creatinine Clr Calc Pharmacy 49.2 ml/min; Est GFR (African American) 66.3 ml/min; Est GFR (Non-African American) 57.2 ml/min; Globulin 2.4 gm/dl (2.5-4.0); Total Protein 5.7 gm/dl (6.0-8.3)
[2021-11-03 07:03] LABS: Partial Thromboplastin Ratio 2.2
[2021-11-03] MEDS: hydrALAZINE HCL 25 MG TAB PO SCH ×4 (07:57→20:57)
[2021-11-03] MEDS: METOPROLOL TARTRATE 50 MG TAB PO SCH ×2 (07:58→20:57)
[2021-11-03] MEDS: FOLIC ACID 1 MG TAB PO SCH (07:58)
[2021-11-03] MEDS: busPIRone 5 MG TAB PO SCH ×2 (07:58→20:56)
[2021-11-03] MEDS: PROCHLORPERAZINE MALEATE 10 MG TAB PO PRN (07:58)
[2021-11-03] MEDS: MAGNESIUM OXIDE 400 MG TAB PO SCH (07:58)
[2021-11-03] MEDS: POTASSIUM CHLORIDE CRTAB 20 MEQ TABCR PO SCH (08:01)
--- NOTE | 2021-11-03 12:09 | Cardiology Progress Note ---
Date of Service November 03, 2021 Assessment & Plan (1) Atrial fibrillation with rapid ventricular response: Plan: * EKG am reveals AF, normal QTC. * Continue metoprolol tartrate to 50 mg twice daily * Add oral amiodarone * Continue heparin, in anticipation of possible MARYURI guided DCCV. * MARYURI indicated to exclude LA, LA thrombus / assess Watchman device * Patient agreeable. NPO after MN. Anesthesia consult placed for MARYURI CV am of 11/04/21. Admission and Anticipated Discharge Date Admission Date: October 30, 2021 Subjective Makenzie Simms is seen in cardiology follow up. She is comfortable. AF with rates of 90-110's at rest (off of cardizem infusion due to lack of IV access) .Remains on heparin infusion. Physical Exam Constitutional: WD/WN, vitals as above Respiratory: normal respiratory effort, lungs clear to auscultation Cardiovascular: Rate/Rhythm: + tachycardic and + irregularly irregular Heart Sounds: no murmur Extremities: no edema Gastrointestinal (Abdomen): normal bowel sounds, soft, nontender, no hepatosplenomegaly Neurologic: PERRL, EOMI, accommodation nl, no face palsy, no dysarthria Results & Data ([facility]) Vital Signs (Past 12 Hours) Vital Signs Temp Pulse Resp BP Pulse Ox 11/03/21 11:33 36.9 C 83 18 155/82 H 97 11/03/21 08:00 36.4 C L 76 20 112/79 98 11/03/21 04:35 36.4 C L 98 H 18 121/64 98
[2021-11-03] MEDS ORDERED: AMIODARONE 200 MG TAB PO ONE ×2 (12:19→12:30)
--- NOTE | 2021-11-03 14:05 | Hospitalist Progress Note ---
Date of Service November 03, 2021 Assessment & Plan (1) Paroxysmal atrial fibrillation with RVR: Plan: - Rate control with Amio, Sotolol washing out, IV Heparin - Monitor in PCU. (2) GERD (gastroesophageal reflux disease): Plan: Has been off PPI since recent hiatal hernia surgery (3) Celiac disease: Plan: Continue gluten-free diet (4) Hypertension: (5) Hyperlipidemia: (6) Hypothyroidism: Plan: TSH on 10/27/21 was 3.58 - continue levothyroxine (7) Anxiety: (8) CKD (chronic kidney disease) stage 3, GFR 30-59 ml/min: (9) Iron deficiency anemia: Plan: Iron saturation was decreased on labs earlier this week - PCP following to determine if another dose of IV iron is indicated Plan: Note: Pt prefers to be called "Makenzie Lopez" Continue other home medications as appropriate. Code Status: Full code DVT Prophylaxis: SCDs, pt has been intolerant of anticoagulation previously so is not anticoagulated for atrial fibrillation, s/p Watchman procedure, Possible DCCV soon ROS-No Headache, No Visual Changes, No Nausea, No Vomiting, No Fever, No Chills, No Neck Pain or Stiffness, No Chest Pain, No Palpitations, No SOB, No STANTON, No Cough, No Sputum, No Wheezing, No Abdominal Pain, No Diarrhea, No Hematemesis, No Hemoptysis, No Unexpected Weight Loss, No Flank pain, No Melena, No Hematochezia, No Frequency, No Urgency, No Burning, No Hematuria, No Rashes, No Diaphoresis. Appetite is Normal, +Fatigue Physical Exam Gen-AAO x 3, NAD, Afebrile Head-NCAT, EOMI, PERRLA, Anicteric Sclera, No Posterior Pharyngeal Erythema Neck-Supple, No JVD, No Thyromegaly, No Masses, No LAD, No Bruits Lungs-Clear to Auscultation Bilaterally, No Rales, No Rhonchi, No Wheezing, No Crepitus Chest-Irreg/Irreg/Tachy, No S4, +S1, +S2, No S3, No Murmurs, No Rubs, No Gallops, + Ectopy Abdomen-Soft, Bowel Sounds Present, Non Tender, Non Distended, No Hepatomegaly, No Splenomegaly, No Palpable Masses, No Rebound, No Rigidity, No Guarding Musculoskeletal-Full Range of Motion Bilaterally, No CVAT Extremities-No Cyanosis, No Clubbing, No Edema Nuero-Cranial Nerves II-XII grossly intact, Motor WNL, DTRs WNL, Strength WNL, Non Focal Psych-Normal Mood Admission and Anticipated Discharge Date Admission Date: October 30, 2021 Subjective Seen in room, feeling well Results & Data Results & Data ([facility]) Vital Signs (Past 12 Hours) Vital Signs Temp Pulse Resp BP Pulse Ox 11/03/21 11:33 36.9 C 83 18 155/82 H 97 11/03/21 08:00 36.4 C L 76 20 112/79 98 11/03/21 04:35 36.4 C L 98 H 18 121/64 98 (1) GERD (gastroesophageal reflux disease) Esophagitis presence: esophagitis presence not specified Qualified Code(s): K21.9 - Gastro-esophageal reflux disease without esophagitis (2) Hypertension Hypertension type: essential hypertension Qualified Code(s): I10 - Essential (primary) hypertension
[2021-11-03] MEDS: AMIODARONE 200 MG TAB PO SCH (16:55)
[2021-11-03] MEDS: HEPARIN SODIUM/DEXTROSE 25,000 UNITS/500 ML BAG IV SCH (17:46)
[2021-11-03] MEDS: LORazepam 0.5 MG TAB PO PRN (17:48)
[2021-11-03] MEDS: ASPIRIN 81 MG ECTAB PO SCH (20:56)
[2021-11-03] MEDS: CHOLECALCIFEROL 1,000 UNITS 25 MCG TAB PO SCH (20:57)
--- NOTE | 2021-11-03 22:44 | Electrocardiogram Report ---
Test Reason : Blood Pressure : / mmHG Vent. Rate : 102 BPM Atrial Rate : 086 BPM P-R Int : 000 ms QRS Dur : 098 ms QT Int : 364 ms P-R-T Axes : 000 193 127 degrees QTc Int : 474 ms Probable arm lead reversal Atrial fibrillation with rapid ventricular response Abnormal ECG When compared with ECG of 01-NOV-2021 04:53, No significant change taking into account lead reversal Confirmed by Kb Perez ([id number]) on 11/03/2021 10:44:14 PM Referred By: REFERRED SELF Confirmed By:Kb Perez
[2021-11-04] MEDS: LEVOTHYROXINE SODIUM 50 MCG TABLET PO SCH (05:27)
[2021-11-04 06:20] LABS: Hematocrit (blood only) 36.7 % (37-47); Hemoglobin 11.9 g/dL (12.0-16.0); Mean Corpuscular Hemoglobin 28.5 pg (25-34); Mean Corpuscular Hgb Conc 32.4 g/dL (32-36); Mean Platelet Volume 10.6 fL (7.4-10.4); Platelet Count 279 K/uL (130-400); RDW Coefficient of Variation 15.2 % (11.5-14.5); RDW Standard Deviation 49.2 fL (36.4-46.3); Red Blood Count 4.17 M/uL (4.2-5.4); White Blood Count 6.76 K/uL (4.8-10.8)
[2021-11-04 06:44] LABS: Albumin Globulin Ratio 1.5 (0.9-2); Albumin Level 3.5 gm/dl (3.4-5.0); BUN Creatinine Ratio 10.6 (10-20); Bilirubin,Total 0.5 mg/dl (0.2-1.0); Creatinine Clr Calc Pharmacy 48.1 ml/min; Est GFR (African American) 64.6 ml/min; Est GFR (Non-African American) 55.7 ml/min; Globulin 2.4 gm/dl (2.5-4.0); Potassium 3.9 mmol/L (3.5-5.1); Total Protein 5.9 gm/dl (6.0-8.3)
[2021-11-04 06:51] LABS: Partial Thromboplastin Ratio 2.4; Prothrombin Time 10.3 Seconds (9.0-12.0)
[2021-11-04 06:52] LABS: Partial Thromboplastin Time 63.8 Seconds (21.0-31.0)
--- NOTE | 2021-11-04 07:04 | Anesthesiology Consultation ---
Date of Service November 04, 2021 Assessment & Plan (1) Encounter for pre-operative examination: Chart Review Chart Review: Acceptable Risk for Surgery History Surgery Operation Date: 11/04/21 07:30 Proposed Procedures p Transesophageal Echo w/Anesthesia - Dmitry Camarillo DO s Cardioversion - Dmitry Camarillo DO Height/Weight Height: 5 ft 5 in Weight: 85.4 kg Allergies Allergy/AdvReac Type Severity Reaction Status Date / Time wheat Allergy Intermediate CELIAC Verified 10/30/21 14:29 DISEASE Iodinated Contrast Media AdvReac Intermediate "Tingly Unverified 10/30/21 14:29 all over" [id number] Reductase AdvReac Intermediate MUSCLE AND Verified 10/30/21 14:29 Inhibitor BACK ACHES [Ftknlpg-Qet-Jae Reductase Inhibitor] diltiazem [From Cardizem] AdvReac Unknown Verified 10/30/21 14:29 epinephrine AdvReac Unknown "WEIRD Verified 10/30/21 14:29 FEELING" lidocaine AdvReac Unknown "FEELS Verified 10/30/21 14:29 WEIRD" Medications Home Medications Medication Instructions Recorded Confirmed Last Taken hydralazine 25 mg tablet 25 mg PO QID 01/18/19 10/30/21 07/10/21 levothyroxine 50 mcg tablet 50 mcg PO QAM 01/18/19 10/30/21 07/10/21 (Synthroid) lorazepam 0.5 mg tablet 0.25 mg PO HS PRN 01/18/19 10/30/21 07/09/21 magnesium oxide 400 mg PO QAM 01/18/19 10/30/21 07/10/21 potassium chloride 20 mEq 20 meq PO QAM 01/18/19 10/30/21 07/10/21 tablet,extended release (K-Tab) aspirin 81 mg tablet,delayed 81 mg PO HS 10/30/19 10/30/21 07/09/21 release (Aspirin Low Dose) cholecalciferol (vitamin D3) 50 2,000 unit PO HS 10/30/19 10/30/21 07/09/21 mcg (2,000 unit) tablet (Vitamin D3) folic acid 1 mg tablet 1 mg PO QAM 10/30/19 10/30/21 07/10/21 furosemide 20 mg tablet (Lasix) 10 mg PO DAILY 10/30/19 10/30/21 07/10/21 losartan 50 mg tablet (Cozaar) 100 mg PO QAM 10/30/19 10/30/21 07/10/21 sotalol 80 mg tablet (Sotalol AF) 40 mg PO BID 11/13/19 10/30/21 07/10/21 multivitamin 1 tab PO QAM 07/04/20 10/30/21 07/10/21 buspirone 5 mg tablet 5 mg PO BID 10/30/21 10/30/21 Unknown ondansetron HCl 4 mg tablet 4 mg PO Q8H PRN 10/30/21 10/30/21 Unknown prochlorperazine maleate 10 mg 10 mg PO Q4H PRN 10/30/21 10/30/21 Unknown tablet promethazine 25 mg tablet 12.5 mg PO Q6H PRN 10/30/21 10/30/21 Unknown Active Medications Generic Name Dose Route Start Last Admin Trade Name Freq PRN Reason Stop Dose Admin Amiodarone HCl 200 mg 11/03/21 17:00 11/03/21 16:55 Amiodarone 200 Mg Tab PO 12/03/21 16:59 200 mg BIDM HILDA Administration Aspirin 81 mg 10/30/21 21:00 11/03/21 20:56 Aspirin 81 Mg Ectab PO 11/29/21 20:59 81 mg HS HILDA Administration Buspirone HCl 5 mg 10/30/21 21:00 11/03/21 20:56 Buspirone 5 Mg Tab PO 11/29/21 20:59 5 mg BID HILDA Administration Folic Acid 1 mg 10/31/21 09:00 11/03/21 07:58 Folic Acid 1 Mg Tab PO 11/30/21 08:59 1 mg QAM HILDA Administration Hydralazine HCl 25 mg 10/30/21 21:00 11/03/21 20:57 Hydralazine Hcl 25 Mg Tab PO 11/29/21 20:59 25 mg QID HILDA Administration Heparin Sodium/Dextrose 25,000 units in 500 mls @ 18 mls/hr 11/01/21 11:30 11/03/21 18:50 Heparin Sodium/Dextrose IV 12/01/21 11:29 900 units/hr .Q24H HILDA 18 mls/hr Titration Protocol 900 UNITS/HR Levothyroxine Sodium 50 mcg 10/31/21 06:30 11/04/21 05:27 Levothyroxine Sodium 50 Mcg Tablet PO 11/30/21 06:29 50 mcg DAILYBB HILDA Administration Lorazepam 0.25 mg 10/30/21 19:32 11/03/21 17:48 Lorazepam 0.5 Mg Tab PO 11/29/21 19:31 0.25 mg HS PRN Administration Sleep Magnesium Oxide 400 mg 10/31/21 09:00 11/03/21 07:58 Magnesium Oxide 400 Mg Tab PO 11/30/21 08:59 400 mg QAM HILDA Administration Metoprolol Tartrate 50 mg 11/02/21 21:00 11/03/21 20:57 Metoprolol Tartrate 50 Mg Tab PO 12/02/21 20:59 50 mg BID HILDA Administration Potassium Chloride 20 meq 10/31/21 09:00 11/03/21 08:01 Potassium Chloride Crtab 20 Meq Tabcr PO 11/30/21 08:59 20 meq QAM HILDA Administration Prochlorperazine 10 mg 10/30/21 19:32 11/03/21 07:58 Prochlorperazine Maleate 10 Mg Tab PO 11/29/21 19:31 10 mg Q4H PRN Administration Nausea Vitamin D 2,000 units 10/30/21 21:00 11/03/21 20:57 Cholecalciferol 1,000 Units 25 Mcg Tab PO 11/29/21 20:59 1,000 units HS HILDA Administration Past Medical History Medical History Anxiety Atrial fibrillation Celiac disease Chronic back pain SPINAL STENOSIS Congestive heart failure HX 1 1/2 YR AGO GERD (gastroesophageal reflux disease) Hiatal hernia History of cardioversion X 4-5 Hyperlipidemia Hypertension Hypothyroidism Iron deficiency anemia Migraine HX Nausea and vomiting after administration of anesthetic agent Osteoarthritis 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 Sleep apnea BORDERLINE-DOES NOT USE MACHINE Urinary bladder incontinence Past Family History Family History Mother Family history of diabetes mellitus Hypertension Macular degeneration Father Heart disease Past Surgical History Surgical History History of adenoidectomy History of appendectomy History of bilateral tubal ligation History of cardiac cath 3 YRS AGO NO STENTS-"CLEAN VESSELS" History of cataract extraction History of repair of hiatal hernia History of tonsillectomy Surgery, elective COCCYXGECTOMY Social History Smoking Status: Former smoker Hx Alcohol Use: No Alcohol type: wine alcohol intake frequency: holidays/special occasions only Hx Substance Use: No substance use type: does not use Physical Exam Vital Signs Last Vital Signs Temp 36.7 C 11/04/21 04:52 Pulse 90 11/04/21 04:52 Resp 20 11/04/21 04:52 BP 116/78 11/04/21 04:52 Pulse Ox 96 11/04/21 04:52 Testing Laboratory Results 11/04/21 05:27 11/04/21 05:27 PT 10.3 Seconds (9.0-12.0) 11/04/21 05:27 INR 1.0 (0.9-1.1) 11/04/21 05:27 APTT 63.8 Seconds (21.0-31.0) H* 11/04/21 05:27 Electrocardiogram Date: 11/03/21 Findings: + AFIB @ (102) Echocardiogram Date: 10/30/21 EF: 55-60% LV Function: normal Valvular Disease: + no significant valvular disease
--- NOTE | 2021-11-04 07:15 | History & Physical Bridge Note ---
Date of Service November 04, 2021 History & Physical Bridge Note I have examined the patient, reviewed the History & Physical and in the interval since the performance of the History & Physical I have noted the following changes of clinical significance: Data: Cardiac Enzymes 10/30/21 10/31/21 11/02/21 Range/Units 11:25 06:45 07:17 Sodium 140 136 136 (136-145) mmol/L AST (13-39) U/L 11/03/21 11/04/21 Range/Units 06:17 05:27 Sodium 135 L 135 L (136-145) mmol/L AST 18 (13-39) U/L Coagulation 11/04/21 Range/Units 05:27 PT 10.3 (9.0-12.0) Seconds APTT 63.8 H* (21.0-31.0) Seconds CBC 11/04/21 Range/Units 05:27 WBC 6.76 (4.8-10.8) K/uL RBC 4.17 L (4.2-5.4) M/uL Hgb 11.9 L (12.0-16.0) g/dL Hct 36.7 L (37-47) % Plt Count 279 (130-400) K/uL Comprehensive Metabolic Panel 11/04/21 Range/Units 05:27 Sodium 135 L (136-145) mmol/L Potassium 3.9 (3.5-5.1) mmol/L Chloride 102 (98-107) mmol/L Carbon Dioxide 24 (21-32) mmol/L BUN 10 (6-23) mg/dl Creatinine 0.94 (0.6-1.2) mg/dl Glucose 100 H (70-99(Fasting)) mg/dl Calcium 9.0 (8.5-10.1) mg/dl AST 18 (13-39) U/L ALT 27 (7-52) U/L Alkaline Phosphatase 70 (34-104) U/L Total Protein 5.9 L (6.0-8.3) gm/dl Albumin 3.5 (3.4-5.0) gm/dl Intake and Output 11/03/21 11/04/21 11/04/21 22:59 06:59 14:59 Intake Total 383.2 / 1399.2 200 / 1399.2 Balance 383.2 / 1399.2 200 / 1399.2 Intake: IV 183.2 / 519.2 Heparin Sodium/Dextrose 25,000 183.2 / 519.2 units In 500 ml @ 900 UNITS/HR 18 mls/hr IV .Q24H HILDA Rx#: [id number] Oral 200 / 880 200 / 880 Other: # Unmeasured Voids 1 Weight 85.4 kg 85.4 kg Weight Measurement Method Built in [facility] Patient Weight 11/05/21 06:59 Weight 85.4 kg Impression and Plan: Remains in AF with ventricular rates in the range of 90-130 bpm at rest. No changes noted. COVID-19 screen performed earlier this hospital stay was negative. Informed consent obtained. Patients elects to proceed.
[2021-11-04] MEDS ORDERED: BENZOCAINE/TETRACAIN/BUTAM 50 APPLN/5 GM CAN EXT ONE (07:17)
[2021-11-04] MEDS ORDERED: AMIODARONE 150MG / 100ML D5W (CATH LAB USE ONLY) ONE (07:54)
[2021-11-04] MEDS ORDERED: 0.2 MICRON FILTER SET 1 EA IV ONE ×2 (07:56→07:57)
[2021-11-04] MEDS ORDERED: AMIODARONE / D5W 150 MG/100 ML BAG IV STA (07:56)
[2021-11-04] MEDS ORDERED: AMIODARONE / D5W 360 MG/200 ML BAG IV ONE (07:57)
--- NOTE | 2021-11-04 08:05 | Cardioversion ---
Date of Service November 04, 2021 Electrical Cardioversion Rpt Electrical Cardioversion Report Date of Surgery November 04, 2021 Pre & Post Diagnosis Preprocedure diagnosis: Symptomatic atrial fibrillation Postprocedure diagnosis: No left atrial, left atrial appendage thrombus, successful conversion to sinus rhythm Operation Date: 11/04/21 07:30 Procedure Procedure-transesophageal echocardiogram guided direct-current cardioversion: The patient's vital signs were monitored via the standard fashion. After informed consent was obtained and timeout was performed the patient was sedated with the assistance of the anesthesia service receiving a total of 140 mg of IV propofol and 40 mg of IV lidocaine. A focused, goal-directed, transesophageal echocardiogram was performed. Severe left atrial argument was present. The Watchman left atrial appendage occlusion device was well visualized with no significant flow detected around the device with color-flow Doppler. No left atrial thrombus was observed, no thrombus noted on the atrial surface of the Watchman device. Moderate mitral regurgitation was present. The patient then underwent direct-current cardioversion receiving a single dose of 200 J of biphasic energy with successful conversion to sinus rhythm. Post cardioversion a short recurrent run of atrial fibrillation was observed wi th spontaneous conversion back to sinus rhythm. Plan: Administer bolus of amiodarone 150 mg IV over 10 minutes, then 1 mg/min over 6 hours. We will reassess after lunch, possible discharge this afternoon. Transition from Heparin to Eliquis at 9 am to complete 1 month course. Component Lab Tech Dmitry Camarillo DO Analyst Market Intelligence Lois Yang, RCS Estimated Blood Loss 0 Findings Consistent with Post-Op Diagnosis
[2021-11-04] MEDS ORDERED: LIDOCAINE 2% MPF LOCAL 5 ML VIAL INFIL ONE (08:10)
[2021-11-04] MEDS ORDERED: PROPOFOL IV EMULSION 10 MG/ML 20 ML VIAL IV ONE (08:10)
--- NOTE | 2021-11-04 08:10 | Cardiology Progress Note ---
Date of Service November 04, 2021 Assessment & Plan (1) Atrial fibrillation with rapid ventricular response: Plan: * Post transesophageal echocardiogram guided cardioversion EKG reveals sinus rhythm, atrial pacing, normal QTC. A focused, goal-directed, transesophageal echocardiogram was performed. Severe left atrial argument was present. The Watchman left atrial appendage occlusion device was well visualized with no significant flow detected around the device with color-flow Doppler. No left atrial thrombus was observed, no thrombus noted on the atrial surface of the Watchman device. Moderate mitral regurgitation was present. The patient then underwent direct-current cardioversion receiving a single dose of 200 J of biphasic energy with successful conversion to sinus rhythm. Post cardioversion a short recurrent run of atrial fibrillation was observed with spontaneous conversion back to sinus rhythm. Plan: Administer bolus of amiodarone 150 mg IV over 10 minutes, then 1 mg/min over 6 hours. Discontinue heparin at 9 AM, start Eliquis at that time 5 mg twice daily, to complete 1 month course post cardioversion. Will reassess after lunch, possible discharge this afternoon. I called daughter , Ju , and updated her by phone. Admission and Anticipated Discharge Date Admission Date: October 30, 2021 Subjective Ms. Simms was seen prior to, during, post transesophageal echocardiogram guided direct-current cardioversion. Remained in atrial fibrillation overnight last night, with ventricular rates in the range of 90 to 130 bpm. Patient underwent direct-current cardioversion this morning with successful conversion to sinus rhythm. Physical Exam Constitutional: WD/WN, vitals as above Respiratory: normal respiratory effort, lungs clear to auscultation Cardiovascular: Rate/Rhythm: + tachycardic and + irregularly irregular Heart Sounds: no murmur Extremities: no edema Gastrointestinal (Abdomen): normal bowel sounds, soft, nontender, no hepatosplenomegaly Neurologic: PERRL, EOMI, accommodation nl, no face palsy, no dysarthria Results & Data ([facility]) Vital Signs (Past 12 Hours) Vital Signs Temp Pulse Pulse Pulse Resp BP BP 11/04/21 07:55 64 16 96/52 L 11/04/21 07:18 125 H 17 132/93 11/04/21 06:21 107 H 11/04/21 04:52 36.7 C 90 20 116/78 11/04/21 00:00 103 H 11/03/21 23:25 36.5 C 107 H 18 114/71 11/03/21 20:55 114 H 115/80 Pulse Ox 11/04/21 07:55 99 11/04/21 07:18 98 11/04/21 06:21 11/04/21 04:52 96 11/04/21 00:00 11/03/21 23:25 98 11/03/21 20:55
[2021-11-04] MEDS ORDERED: AMIODARONE 360MG / 200ML D5W (CATH LAB USE ONLY) ONE (08:16)
[2021-11-04] MEDS: AMIODARONE 200 MG TAB PO SCH (08:51)
[2021-11-04] MEDS: busPIRone 5 MG TAB PO SCH (08:52)
[2021-11-04] MEDS: hydrALAZINE HCL 25 MG TAB PO SCH ×2 (08:53→12:53)
[2021-11-04] MEDS: FOLIC ACID 1 MG TAB PO SCH (08:53)
[2021-11-04] MEDS: MAGNESIUM OXIDE 400 MG TAB PO SCH (08:54)
[2021-11-04] MEDS: METOPROLOL TARTRATE 50 MG TAB PO SCH (08:54)
[2021-11-04] MEDS: HEPARIN SODIUM/DEXTROSE 25,000 UNITS/500 ML BAG IV SCH (08:59)
[2021-11-04] MEDS: POTASSIUM CHLORIDE CRTAB 20 MEQ TABCR PO SCH (09:00)
[2021-11-04] MEDS ORDERED: [UNRECOGNIZED DRUG - REMARK] ONE (09:00)
[2021-11-04] MEDS ORDERED: APIXABAN 5 MG TABLET PO SCH (09:00)
--- NOTE | 2021-11-04 10:33 | Electrocardiogram Report ---
Test Reason : Blood Pressure : / mmHG Vent. Rate : 062 BPM Atrial Rate : 062 BPM P-R Int : 206 ms QRS Dur : 084 ms QT Int : 432 ms P-R-T Axes : 000 -30 -05 degrees QTc Int : 438 ms Atrial-paced rhythm Left axis deviation Abnormal ECG When compared with ECG of 03-NOV-2021 06:05, Electronic atrial pacemaker has replaced Atrial fibrillation Vent. rate has decreased BY 40 BPM Confirmed by Vance Barron ([id number]) on 11/04/2021 10:33:21 AM Referred By: REFERRED SELF Confirmed By:Vance Barron
[2021-11-04] MEDS ORDERED: FUROSEMIDE INJ 20 MG/2 ML VIAL IV ONE (11:50)
--- NOTE | 2021-11-04 11:50 | Communication Note ---
Date of Service: November 04, 2021 Patient reassessed. Feeling well. Remains in SR. Stable for DC to home. Sotalol discontinued in favor of metoprolol tartrate 50 mg BID. Start amiodarone 200 mg BID Eliquis 5 mg BID x 1 month. Hold ASA 81 mg while on Eliquis.
[2021-11-04] MEDS ORDERED: POTASSIUM CHLORIDE CRTAB 20 MEQ TABCR PO STA (11:51)
--- NOTE | 2021-11-04 12:29 | Hospitalist Progress Note ---
Date of Service November 04, 2021 Assessment & Plan (1) Paroxysmal atrial fibrillation with RVR: Plan: - Rate control with Amio, Sotolol washing out, IV Heparin - MARYURI DCCV today - Monitor in PCU. (2) GERD (gastroesophageal reflux disease): Plan: Has been off PPI since recent hiatal hernia surgery (3) Celiac disease: Plan: Continue gluten-free diet (4) Hypertension: (5) Hyperlipidemia: (6) Hypothyroidism: Plan: TSH on 10/27/21 was 3.58 - continue levothyroxine (7) Anxiety: (8) CKD (chronic kidney disease) stage 3, GFR 30-59 ml/min: (9) Iron deficiency anemia: Plan: Iron saturation was decreased on labs earlier this week - PCP following to determine if another dose of IV iron is indicated Plan: Note: Pt prefers to be called "Makenzie Lopez" Continue other home medications as appropriate. Code Status: Full code DVT Prophylaxis: SCDs, pt has been intolerant of anticoagulation previously so is not anticoagulated for atrial fibrillation, s/p Watchman procedure, Heparin, Start Eliquis Tomorrow, Amio ROS-No Headache, No Visual Changes, No Nausea, No Vomiting, No Fever, No Chills, No Neck Pain or Stiffness, No Chest Pain, No Palpitations, No SOB, No STANTON, No Cough, No Sputum, No Wheezing, No Abdominal Pain, No Diarrhea, No Hematemesis, No Hemoptysis, No Unexpected Weight Loss, No Flank pain, No Melena, No Hematochezia, No Frequency, No Urgency, No Burning, No Hematuria, No Rashes, No Diaphoresis. Appetite is Normal, +Fatigue Physical Exam Gen-AAO x 3, NAD, Afebrile Head-NCAT, EOMI, PERRLA, Anicteric Sclera, No Posterior Pharyngeal Erythema Neck-Supple, No JVD, No Thyromegaly, No Masses, No LAD, No Bruits Lungs-Clear to Auscultation Bilaterally, No Rales, No Rhonchi, No Wheezing, No Crepitus Chest-Irreg/Irreg/Tachy, No S4, +S1, +S2, No S3, No Murmurs, No Rubs, No Gallops, + Ectopy Abdomen-Soft, Bowel Sounds Present, Non Tender, Non Distended, No Hepatomegaly, No Splenomegaly, No Palpable Masses, No Rebound, No Rigidity, No Guarding Musculoskeletal-Full Range of Motion Bilaterally, No CVAT Extremities-No Cyanosis, No Clubbing, No Edema Nuero-Cranial Nerves II-XII grossly intact, Motor WNL, DTRs WNL, Strength WNL, Non Focal Psych-Normal Mood Admission and Anticipated Discharge Date Admission Date: October 30, 2021 Subjective Feeling good, For MARYURI and DCCV today Results & Data Results & Data ([facility]) Vital Signs (Past 12 Hours) Vital Signs Temp Pulse Pulse Pulse Resp BP BP 11/04/21 11:58 36.7 C 63 18 115/63 11/04/21 08:58 62 18 134/82 11/04/21 08:28 63 18 132/68 11/04/21 08:20 65 16 125/69 11/04/21 08:10 65 16 113/53 L 11/04/21 07:55 64 16 96/52 L 11/04/21 07:18 125 H 17 132/93 11/04/21 06:21 107 H 11/04/21 04:52 36.7 C 90 20 116/78 Pulse Ox 11/04/21 11:58 99 11/04/21 08:58 93 11/04/21 08:28 94 11/04/21 08:20 95 11/04/21 08:10 95 11/04/21 07:55 99 11/04/21 07:18 98 11/04/21 06:21 11/04/21 04:52 96 (1) GERD (gastroesophageal reflux disease) Esophagitis presence: esophagitis presence not specified Qualified Code(s): K21.9 - Gastro-esophageal reflux disease without esophagitis (2) Hypertension Hypertension type: essential hypertension Qualified Code(s): I10 - Essential (primary) hypertension
--- NOTE | 2021-11-04 12:49 | Anesthesiology Progress Note ---
Date of Service November 04, 2021 Anesthesia Post Procedure Vital Signs Vital Signs: Temp Pulse Pulse Pulse Resp BP BP 11/04/21 11:58 36.7 C 63 18 115/63 11/04/21 08:58 62 18 134/82 11/04/21 08:28 63 18 132/68 11/04/21 08:20 65 16 125/69 11/04/21 08:10 65 16 113/53 L 11/04/21 07:55 64 16 96/52 L 11/04/21 07:18 125 H 17 132/93 11/04/21 06:21 107 H 11/04/21 04:52 36.7 C 90 20 116/78 11/04/21 00:00 103 H 11/03/21 23:25 36.5 C 107 H 18 114/71 11/03/21 20:55 114 H 115/80 11/03/21 19:36 36.6 C 116 H 18 95/63 L 11/03/21 15:30 36.5 C 113 H 18 111/61 Pulse Ox 11/04/21 11:58 99 11/04/21 08:58 93 11/04/21 08:28 94 11/04/21 08:20 95 11/04/21 08:10 95 11/04/21 07:55 99 11/04/21 07:18 98 11/04/21 06:21 11/04/21 04:52 96 11/04/21 00:00 11/03/21 23:25 98 11/03/21 20:55 11/03/21 19:36 96 11/03/21 15:30 96 Transfer of Care Handoff Completed per policy Notes Mental Status: alert / awake / arousable Patient Amnestic to Procedure: Yes Nausea / Vomiting: adequately controlled Pain: adequately controlled Airway Patency, RR, SpO2: stable & adequate BP & HR: stable & adequate Hydration State: stable & adequate Anesthetic Complications: no major complications apparent
--- NOTE | 2021-11-04 13:34 | Discharge Summary ---
Date of Service November 04, 2021 Admission HPI Per Admitting Provider This is an 85 y/o female with a PMH of PAF with history of watchman procedure, SSS s/p PPM, HTN, CKD stage III, HLD, hypothyroidism, celiac disease, CHRISTIANA, spinal stenosis and LUZ MARINA who presented to the ED today with three weeks of worsening fatigue and malaise, especially over the past week. Pt has an extensive history of paroxysmal atrial fibrillation for which she has been on multiple medications and undergone cardioversion previously. Previously had trouble tolerating amiodarone due to GI problems, metoprolol also caused nausea and upset stomach. She was initially on Sotalol 80 mg BID but went into acute C HF so this was lowered to 40 mg BID. Pt was intolerant of anticoagulation due to recurrent GI bleeding. On 09/26/21, pt under laparoscopic hiatal hernia repair at [facility]. She reports that her appetite has been decreased since surgery with decreased oral intake. The nausea that she had pre-operatively has not improved since the procedure. She has multiple anti-emetics at home but has not taken any recently. On 10/15/20, she saw her [employer] of [employer] ideas, Dr. Camarillo, for an acute visit due to increased fatigue for the past 1-2 weeks. She was concerned that she may be back in atrial fibrillation as this was similar to how she felt previously. There were technical issues interrogating her pacemaker remotely prior to the appt. When it was interrogated on site, she was found to be in NSR. On 10/27/20, she saw Pipe Hayward PA-C at her PCP office due to worsening symptoms. EKG done that day showed atrial fibrillation with RVR at 120-150. It was thought that the sotalol would result in a conversion back to sinus rhythm. Pt thinks that she may have briefly converted back but isn't sure. Today, she felt worse so she called her granddaughter to bring her to the ED for evaluation. Her main complaint is severe fatigue, mild dyspnea on exertion, and a sense that something is "not right" in general She describes a "fullness feeling" in her chest but denies chest pressure, chest pain, palpitations or sensation of heart racing. She has received one dose of Lopressor in the ED thus far with transient improvement of her HR from 130s to 110s but is now back in the 120s-130s when she was seen. No significant change in her symptoms since arrival. Admission Exam Per Admitting Provider Constitutional: well developed and well nourished; no acute distress Eyes: + anicteric sclerae Neck: trachea midline Respiratory: no respiratory distress and no labored breathing Auscultation: lungs clear to auscultation bilaterally; no rales, no rhonchi and no wheezes Cardiovascular: Rate/Rhythm: + tachycardic and + irregularly irregular Vessels: dorsalis pedis pulses present and radial pulses present Extremities: no calf tenderness and no pedal edema B Gastrointestinal (Abdomen): Inspection/Auscultation: normal bowel sounds; abdomen not distended Percussion/Palpation: abdomen soft; abdomen nontender Musculoskeletal: Head/Neck/Chest: normocephalic, head atraumatic and neck supple Skin: no jaundice Neurologic: moves all extremities; no focal motor deficits Psychiatric: A+Ox3, euthymic affect Principal Diagnosis (1) Paroxysmal atrial fibrillation with RVR: (2) GERD (gastroesophageal reflux disease): (3) Celiac disease: (4) Hypertension: (5) Hyperlipidemia: (6) Hypothyroidism: (7) Anxiety: (8) CKD (chronic kidney disease) stage 3 (9) Iron deficiency anemia: Discharge Exam Constitutional see below Discharge Data Allergies Allergy/AdvReac Type Severity Reaction Status Date / Time wheat Allergy Intermediate CELIAC Verified 10/30/21 14:29 DISEASE Iodinated Contrast Media AdvReac Intermediate "Tingly Unverified 10/30/21 14:29 all over" Zcsccuh-JYH-ZzA Reductase AdvReac Intermediate MUSCLE AND Verified 10/30/21 14:29 Inhibitor BACK ACHES [Wkoqfeh-San-Ksd Reductase Inhibitor] diltiazem [From Cardizem] AdvReac Unknown Verified 10/30/21 14:29 epinephrine AdvReac Unknown "WEIRD Verified 10/30/21 14:29 FEELING" lidocaine AdvReac Unknown "FEELS Verified 10/30/21 14:29 WEIRD" Consultations 10/30/21 13:53 ED Decision to Admit Stat 10/30/21 19:03 Consult Cardiology Routine 11/03/21 12:11 Consult Anesthesiology Routine Procedures Performed Operation Date: 11/04/21 07:30 Actual Procedures p Echo Transesophageal - Dmitry Camarillo DO s Echo Color Flow - Dmitry J Marquise, DO Current Diagnoses Iron deficiency anemia, unspecified (10/30/21) Hypothyroidism, unspecified (10/30/21) Hyperlipidemia, unspecified (10/30/21) Anxiety disorder, unspecified (10/30/21) Essential (primary) hypertension (10/30/21) Paroxysmal atrial fibrillation (10/30/21) Unspecified atrial fibrillation (10/30/21) Sick sinus syndrome (10/30/21) Gastro-esophageal reflux disease without esophagitis (10/30/21) Celiac disease (10/30/21) Chronic kidney disease, stage 3 unspecified (10/30/21) Encounter for other preprocedural examination (10/30/21) Allergies wheat Allergy (Intermediate, Verified 10/30/21 14:29) CELIAC DISEASE Iodinated Contrast Media Adverse Reaction (Intermediate, Unverified 10/30/21 14:29) "Tingly all over" Xycosga-NPG-IhP Reductase Inhibitor [Priyopq-Xyk-Fkp Reductase Inhibitor] Adverse Reaction (Intermediate, Verified 10/30/21 14:29) MUSCLE AND BACK ACHES diltiazem [From Cardizem] Adverse Reaction (Unknown, Verified 10/30/21 14:29) epinephrine Adverse Reaction (Unknown, Verified 10/30/21 14:29) "WEIRD FEELING" lidocaine Adverse Reaction (Unknown, Verified 10/30/21 14:29) "FEELS WEIRD" Height/Weight/Isolation Height 5 ft 5 in Weight 85.4 kg Chemistry 11/03/21 11/04/21 06:17 05:27 Sodium 135 L 135 L Potassium 4.0 3.9 Chloride 102 102 Carbon Dioxide 27 24 Anion Gap 6 9 BUN 8 10 Creatinine 0.92 0.94 Glucose 105 H 100 H Hospital Course (1) Paroxysmal atrial fibrillation with RVR: - Amio Bolus p DCCV and MARYURI today, DC on Eliquis, Amio, Metoprolo - MARYURI DCCV today - F/U c Cards - DC Today 6 hrs after Amio bolus (2) GERD (gastroesophageal reflux disease): Has been off PPI since recent hiatal hernia surgery (3) Celiac disease: Continue gluten-free diet (4) Hypertension: (5) Hyperlipidemia: (6) Hypothyroidism: TSH on 10/27/21 was 3.58 - continue levothyroxine (7) Anxiety: (8) CKD (chronic kidney disease) stage 3, GFR 30-59 ml/min: (9) Iron deficiency anemia: Iron saturation was decreased on labs earlier this week - PCP following to determine if another dose of IV iron is indicated Note: Pt prefers to be called "Makenzie Lopez" Continue other home medications as appropriate. Code Status: Full code DVT Prophylaxis: SCDs, pt has been intolerant of anticoagulation previously so is not anticoagulated for atrial fibrillation, s/p Watchman procedure, Start Eliquis Tomorrow, Amio, Metoprolol ROS-No Headache, No Visual Changes, No Nausea, No Vomiting, No Fever, No Chills, No Neck Pain or Stiffness, No Chest Pain, No Palpitations, No SOB, No STANTON, No Cough, No Sputum, No Wheezing, No Abdominal Pain, No Diarrhea, No Hematemesis, No Hemoptysis, No Unexpected Weight Loss, No Flank pain, No Melena, No Hematochezia, No Frequency, No Urgency, No Burning, No Hematuria, No Rashes, No Diaphoresis. Appetite is Normal, +Fatigue Physical Exam Gen-AAO x 3, NAD, Afebrile Head-NCAT, EOMI, PERRLA, Anicteric Sclera, No Posterior Pharyngeal Erythema Neck-Supple, No JVD, No Thyromegaly, No Masses, No LAD, No Bruits Lungs-Clear to Auscultation Bilaterally, No Rales, No Rhonchi, No Wheezing, No Crepitus Chest-Reg at 63, No S4, +S1, +S2, No S3, No Murmurs, No Rubs, No Gallops, No Ectopy Abdomen-Soft, Bowel Sounds Present, Non Tender, Non Distended, No Hepatomegaly, No Splenomegaly, No Palpable Masses, No Rebound, No Rigidity, No Guarding Musculoskeletal-Full Range of Motion Bilaterally, No CVAT Extremities-No Cyanosis, No Clubbing, No Edema Nuero-Cranial Nerves II-XII grossly intact, Motor WNL, DTRs WNL, Strength WNL, Non Focal Psych-Normal Mood Total Time Total Time Spent Total Time Spent (In Minutes): 45 mins Total Time Includes: Examination of the Patient, Discharge Planning, Medication Reconciliation and Communication With Other Providers Discharge Plan Discharge Items Patient Disposition: Home - Self-Care Reason For Visit: AFIB WITH RVR Discharge Diagnosis: (1) Paroxysmal atrial fibrillation with RVR: (2) GERD (gastroesophageal reflux disease): (3) Celiac disease: (4) Hypertension: (5) Hyperlipidemia: (6) Hypothyroidism: (7) Anxiety: (8) CKD (chronic kidney disease) stage 3 (9) Iron deficiency anemia: Condition on Discharge: Good Health Concerns: Goinf back into Atrial Fib, Heart Failure Exacerbation Activity: Resume your previous activity Lifting: Wait until after follow-up appointment Bathing: No limitations Sexual Activity: Wait until after follow-up appointment Exercise/Sports: Wait until after follow-up appointment Driving/Machine Use: Resume 3 days after discharge Weightbearing: Full weightbearing Non-emergency contact: Primary Care Provider and News Reel Cameraman Call non-emergency contact if: you have any medication questions Follow-up/Referrals: Arpit London MD [Primary Care Provider] - Shaquille Hassan DO [News Reel Cameraman] - (Call for appt with either Marquise Maxwell or Mo) Diet: Heart Healthy Fluids: 1500ml (6 cups) Addtl Attending Provider Instructions: None Pending Studies at Discharge: No Stand-Alone Forms: My [employer], Smoking Cessation Medications and DC Order Prescriptions: New amiodarone 200 mg Tablet 200 mg PO BIDM Qty: 60 RF: 0 metoprolol tartrate 50 mg Tablet 50 mg PO BID Qty: 60 RF: 0 nitroglycerin [Nitrostat] 0.4 mg Tablet, Sublingual 0.4 mg sublingual UD PRN (Reason: chest pain) Qty: 30 RF: 0 Eliquis 5 mg Tablet 5 mg PO BID Qty: 60 RF: 0 Continued furosemide [Lasix] 20 mg Tablet 10 mg PO DAILY RF: 0 folic acid 1 mg Tablet 1 mg PO QAM RF: 0 cholecalciferol (vitamin D3) [Vitamin D3] 2,000 unit Tablet 2,000 unit PO HS RF: 0 hydralazine 25 mg Tablet 25 mg PO QID RF: 0 magnesium oxide 400 mg magnesium Capsule 400 mg PO QAM RF: 0 potassium chloride [K-Tab] 20 mEq Tablet Extended Release 20 meq PO QAM RF: 0 lorazepam 0.5 mg Tablet 0.25 mg PO HS PRN (Reason: Sleep) RF: 0 levothyroxine [Synthroid] 50 mcg Tablet 50 mcg PO QAM RF: 0 multivitamin Tablet 1 tab PO QAM RF: 0 ondansetron HCl 4 mg tablet 4 mg PO Q8H PRN (Reason: Nausea) RF: 0 buspirone 5 mg tablet 5 mg PO BID RF: 0 prochlorperazine maleate 10 mg tablet 10 mg PO Q4H PRN (Reason: Nausea) RF: 0 promethazine 25 mg tablet 12.5 mg PO Q6H PRN (Reason: nausea and vomiting) RF: 0 Discontinued losartan [Cozaar] 50 mg Tablet 100 mg PO QAM RF: 0 aspirin [Aspirin Low Dose] 81 mg Tablet,Delayed Release (Dr/Ec) 81 mg PO HS RF: 0 sotalol [Sotalol AF] 80 mg tablet 40 mg PO BID RF: 0 Discharge Orders: Discharge Order (Routine); Ordered 11/04/21 Ordered By: Hao Ames Admission Data Admit Date/Time: 10/30/21 15:18 Attending Provider: Hao Ames Admit Provider: Swathi Newberry Primary Care Provider: Arpit London Other Providers: Swathi Newberry ; Shaquille Hassan ; Jeffery Sheppard
== END 2021-11-04 16:23 | disposition home or self-care (01) | DRG 310 ==
LOC: ED 10:54 → EDINP 15:18 → SUATTDRO 15:18 → 2S 18:18